=== PATIENT | male | born 1950 | race Caucasian/White ===

== ENCOUNTER 2019-06-24 08:07 | Day surgery (SDC) | payer OTHER, SELFPAY ==
[2019-06-21 11:58] VITALS: BMI 33.5
[2019-06-24] MEDS: sodium chloride 0.9% 1,000 ML 30 ML (08:54)
--- NOTE | 2019-06-24 08:54 | ANES.PREANES ---
Pre-Anesthetic Assessment Pre-Anesthetic Assessment: Height/Weight: Height 1.91 m Weight 121.563 kg Preop Diagnosis: screening Proposed Procedure: Operation Date: 06/24/19 09:30 Proposed Procedures p Colonoscopy(Not Applicable) - Pascual Bernabe MD Was Beta Sneha taken within 24 hours: Yes Last intake: Intake Last Liquid Date 06/23/19 Last Liquid Time 21:00 Last Solid Date 06/22/19 Last Solid Time 18:00 Last Intake: 23:00 Social: Social History: No tobacco (stop 12 yrs ago) Exam: Pre-Anes Outpt Exam: alert, oriented x 3, clear to auscultation bilaterally and regular rate & rhythm Airway: Submandibular: WNL Cervical ROM: WNL Dentition: False Pulmonary: Pulmonary: None reported CV/HEM: CV/HEM: CAD (ptca 2 yrs ago total 5 stents. no cp in 2 yrs), HTN and SD : : None reported Hepatic: Hepatic: None reported GI: GI: None reported Metabolic: Metabolic: DM (avg 150-200) Musc/skel: Musc/skel: OA/DJD Neuropsych: Neuropsych: None reported Anesthetic Plan: ASA status: III Anesthesia: Anesthesia Evaluation and MAC Risk of > 500 ml blood loss (7ml/kg in children): No PFSH Anesthesia PFSH: Medical History (Updated 06/20/19 @ 13:37 by Pascual Bernabe MD) H/O adenomatous polyp of colon (Acute) Social History Smoking and tobacco status: former smoker Alcohol intake: former Data Anesthesia Cardiac Studies: No Data to Display
[2019-06-24 08:56] VITALS: BP 159/84; PULSE 54; RESP 16; TEMP 36.3; O2SAT 97
--- NOTE | 2019-06-24 09:06 | PM.HPUD ---
H&P update H&P Update: DATE OF SURGERY/PROCEDURE: 06/24/19 DATE H&P PERFORMED: 06/20/19 H&P UPDATE INFORMATION: H&P completed within last 30 days and No changes to prior documentation PLANNED PROCEDURE: Operation Date: 06/24/19 09:30 Proposed Procedures p Colonoscopy(Not Applicable) - Pascual Bernabe MD Full H&P Perinent History: Medical/Surgical History: Medical History (Updated 06/20/19 @ 13:37 by Pascual Bernabe MD) H/O adenomatous polyp of colon (Acute) Social History: Social History Smoking and tobacco status: former smoker Alcohol intake: former
[2019-06-24 10:00] VITALS: BP 109/66; PULSE 60; RESP 18; TEMP 36.5; O2SAT 98
[2019-06-24 10:10] VITALS: BP 122/64; PULSE 51; RESP 18; O2SAT 96
[2019-06-24 10:23] VITALS: BP 131/76; PULSE 52; RESP 18; O2SAT 99
== END 2019-06-24 10:30 | disposition home or self-care (01) ==
PROVIDERS: Family Provider Nurse Practitioner; PCP Nurse Practitioner; Visit Provider Internal Medicine
PROC: 0DJD8ZZ Inspection of Lower Intestinal Tract, Via Natural or Artificial Opening Endoscopic (ICD-10-PCS; CPT 45378; principal; 2019-06-24 09:30)
DX: D12.0 Benign neoplasm of cecum (principal); D12.2 Benign neoplasm of ascending colon; Z86.010 Personal history of colon polyps; Z79.82 Long term (current) use of aspirin; Z87.891 Personal history of nicotine dependence; K57.30 Diverticulosis of large intestine without perforation or abscess without bleeding; I10 Essential (primary) hypertension; I25.10 Atherosclerotic heart disease of native coronary artery without angina pectoris; E11.9 Type 2 diabetes mellitus without complications; M19.90 Unspecified osteoarthritis, unspecified site; Z79.4 Long term (current) use of insulin
CPT/HCPCS: 12345; 45380; 45385; 88305; 96365; J7030

== ENCOUNTER → 2019-08-05 16:00 | Outpatient (BNVA) | payer OTHER, MEDICARE, SELFPAY | PROVIDERS: Family Provider Nurse Practitioner; PCP Nurse Practitioner; Visit Provider Nurse Practitioner Family | DX: I25.10 Atherosclerotic heart disease of native coronary artery without angina pectoris (principal) | CPT/HCPCS: 80048; 83880 ==

== ENCOUNTER 2019-10-29 07:32 | Outpatient (CLI) | payer OTHER, SELFPAY ==
[2019-10-29 07:53] VITALS: BMI 32.1
--- NOTE | 2019-10-29 07:55 | NMCV_ITS ---
NM melia perf SPECT r/s* [id number] Galen Macdonald Age: 69 Gender: M : 1950 Exam Date: 10/29/2019 08:30 Ordering Phys: Cyndee Willett Technologist: AKOSUA Nunez Exam Location: [facility] Indications: CAD STRESS TEST Please see separate stress test report [facility] for full findings IMAGE PROTOCOL Rest/Stress 1 Lexiscan Day Radiopharmaceutical Dose (mCi) Administration Site Administered by Rest: Tc-99m 10.4 IV AKOSUA Gil Sestamibi Stress:Tc-99m 32.4 IV AKOSUA Gil Sestamibi Rest: 29-Oct-2019 60 Discovery 630 Stress: 29-Oct-2019 30 Discovery 630 0.4mg Lexiscan. Images obtained in supine and prone position. SPECT RESULTS Technical Quality: Excellent Raw Data Analysis: Normal Image Corrections: No attenuation or motion correction applied Summed Stress Score: 14 Summed Rest Score: 9 Summed Difference Score: 5 PERFUSION FINDINGS Medium-sized area of fixed perfusion defect noted in basal to distal inferior inferoseptal and inferolateral wall suggestive of old myocardial infarction versus scarring and RCA or circumflex territory. FUNCTIONAL RESULTS (calculated via Gated SPECT) Stress Image LV EF (%): 32 Stress EDV (mL):238 TID: 1.06 Stress ESV (mL):161 Rest Image LV EF (%): 32 FUNCTIONAL FINDINGS: There is inferior wall akinesis, there is global hypokinesis IMPRESSIONS Medium-sized area of old myocardial infarction versus scarring noted in basal to distal inferior, inferoseptal and inferolateral wall without dot-infarct ischemia. EKG segment will be documented separately. Simone Amador MD (Electronically Signed) Final Date: 29 October 2019 11:59 S
--- NOTE | 2019-10-29 07:55 | ECG_ITS ---
NAME OF STUDY: LEXISCAN SESTAMIBI STRESS TEST INDICATION: Coronary Artery Disease PROCEDURE: At the baseline, the EKG revealed sinus bradycardia with a right bundle branch block pattern. Nonspecific T wave changes. The baseline blood pressure was 155/83 mm Hg with a heart rate of 80 beats/min. Lexiscan was infused over a period of 20 seconds. A total of 0.4 milligrams of Lexiscan was infused. The stress phase was continued for a total of 5 minutes. Heart rate at the end of the stress phase was 61 with a blood pressure 145/78. The EKG at the peak infusion revealed no significant changes. Sestamibi was injected 20 seconds after the Lexiscan infusion. Blood pressure at the end of the recovery phase was 144/70 with a heart rate of 59 per minute. CONCLUSION: 1. No significant EKG changes with the LexiScan infusion 2. No LexiScan induced chest pain or cardiac arrhythmia 3. Normal blood pressure and heart rate response 4. Sestamibi/sestamibi perfusion scan pending; see separate report. Electronically Signed On 10-30-2019 9:25:29 CDT by Niharika Garcia M.D. [email or web address]
[2019-10-29] MEDS: regadenoson 0.4 Mg/5 ml Syringe IVP (09:20)
[2019-10-29 09:27] VITALS: BP 145/75; PULSE 66
== END 2019-10-29 07:33 | disposition home or self-care (01) ==
LOC: RAD 07:40 → CDL 07:46
PROVIDERS: Family Provider Nurse Practitioner; PCP Nurse Practitioner; Visit Provider Nurse Practitioner Family
DX: I25.10 Atherosclerotic heart disease of native coronary artery without angina pectoris (principal)
CPT/HCPCS: 78452; 93017; A9500; J2785

== ENCOUNTER 2020-03-10 11:13 | Emergency (ER) | payer OTHER, MEDICARE, SELFPAY ==
[2020-03-10 11:18] VITALS: BP 184/89; PULSE 63; RESP 16; O2SAT 99; BMI 33.2
--- NOTE | 2020-03-10 11:36 | ED_ITS ---
HPI - Skin/Abscess/Foreign Bdy General: Chief complaint: Skin/Abscess/Foreign Body Stated complaint: Spider Bite Time Seen by Provider: 03/10/20 11:23 History of Present Illness: HPI narrative: Only 1-year-old male presents emergency room with complaint of a spider bite on his pannus. He has 2 areas that are bruised one area that is tender and swollen. He was seen at the [place] [facility] and he was directed here. He is an insulin-dependent diabetics and injec ts insulin in his abdominal wall. These have been present for over a week now. He was on an antibiotic for it did not resolve. MD complaint: abscess/boil Onset (ago): week(s) Severity: mild Quality: aching Pain Consistency: constant Relieving factors: none Exacerbating factors: none Context: none Associated symptoms: Deny arthralgias, chills, cough, fever(s), itching, myalgias, nausea, rigidity, short of breath or vomiting Treatments prior to arrival: antibiotic Review of Systems Const: Denies: fever(s) or chills ENMT: Denies: throat pain, ear or mastoid pain, nasal discharge or nasal congestion Card: Denies: chest pain, edema, dyspnea on exertion or orthopnea Resp: Denies: dyspnea, productive cough or non-productive cough GI: Denies: nausea or vomiting : Denies: flank pain, dysuria, urinary frequency or urinary urgency PFSH ED PFSH: Medical History (Updated 03/10/20 @ 11:41 by Dane Hernandez DO) Benign prostatic hyperplasia with lower urinary tract symptoms CAD (coronary artery disease) Chronic pain Diabetes mellitus GERD (gastroesophageal reflux disease) H/O adenomatous polyp of colon Hyperlipidemia Hypertension Ischemic cardiomyopathy Myocardial infarction Obesity Status post replacement of knee joint Surgical History (Updated 11/13/19 @ 16:20 by Hai Barnett MD) Post PTCA Family History Mother Cancer Denies family history of Diabetes CAD (coronary artery disease) Clotting disorder Dementia Hyperlipidemia Psychiatric illness Chronic kidney disease (CKD) Suicide Anesthesia complication Bleeding disorder Family history of premature coronary artery disease Lung disease Hypertension Stroke Social History Smoking and tobacco status: former smoker Alcohol intake: former Physical Exam Const: COMMON NORMALS: no acute distress GENERAL APPEARANCE: cooperative and comfortable ORIENTATION/CONSCIOUSNESS: Yes awake, Yes oriented to person, Yes oriented to place and Yes oriented to time Neck/C-Spine: COMMON NORMALS: no JVD Resp: COMMON NORMALS: normal respiratory effort, No retractions, No use of accessory muscles and clear to auscultation bilaterally AUSCULTATION: clear to auscultation bilaterally Cardio: COMMON NORMALS: no JVD, regular rate, regular rhythm and No murmurs present (Cardio) RATE: regular rate RHYTHM: regular rhythm Neuro: SENSORIUM/ORIENTATION: Yes oriented to person, Yes oriented to place and Yes oriented to time Skin: NARRATIVE SKIN EXAM: No areas of bruising in various stages of healing on the abdominal wall at the apex of the pannus there is a fluctuant small area consistent with a subcutaneous abscess this is confirmed by bedside ultrasound. The other area of bruising more to the midline does not show any subcutaneous abscess. Procedures Abscess I/D Site: abdomen Side (if applicable): left Local Anesthetic: lidocaine 1% Amount of anesthesia used (mL): 2 Amount of fluid expressed (mL): 2 Irrigation: Yes Packing used?: none Course Vital Signs: Vital signs: Vital Signs Pulse Rate 63 03/10/20 11:18 Respiratory Rate 16 03/10/20 11:18 Blood Pressure 184/89 03/10/20 11:18 Pulse Oximetry 99 03/10/20 11:18 Discharge Plan Discharge Patient Disposition: Home Clinical Impression: Abscess of skin or subcutaneous tissue, Diabetes mellitus Condition: Stable Prescriptions: New Bactrim DS 800-160 mg tablet 1 tab PO BID 5 Days Qty: 10 RF: 0 No Action nitroglycerin 0.4 mg tablet, sublingual 0.4 mg SUBLINGUAL Q5M PRN (Reason: chest pain) Qty: 20 RF: 3 glipizide 10 mg tablet 10 mg PO BID RF: 0 Lantus Solostar U-100 Insulin 100 unit/mL (3 mL) insulin pen 100 unit SUBCUT DAILY RF: 0 lisinopril 40 mg tablet 40 mg PO DAILY RF: 0 tamsulosin 0.4 mg capsule 0.4 mg PO DAILY RF: 0 aspirin 325 mg tablet 325 mg PO DAILY RF: 0 acetaminophen 500 mg tablet 500 mg PO Q4H PRN (Reason: PAIN) RF: 0 metoprolol tartrate 50 mg tablet 25 mg PO BID RF: 0 furosemide 40 mg tablet 40 mg PO DAILY Qty: 30 RF: 3 potassium chloride 20 mEq tablet extended release 20 meq PO DAILY Qty: 30 RF: 3 Discharge Orders: Discharge Order (Routine); Ordered 03/10/20 Ordered By: Dane Hernandez Referrals: Ines Dooley FNP [Primary Care Provider] - Activity Restrictions/Additional Instructions: Change wound dressing daily. Apply topical [id number] antibiotic ointment follow-up with your primary care doctor return if worsens or changes. 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
[2020-03-10 11:48] VITALS: BP 159/81; PULSE 60; RESP 17; O2SAT 97
== END 2020-03-10 11:48 | disposition home or self-care (01) ==
PROVIDERS: Emergency Provider Family Medicine; PCP Nurse Practitioner
DX: L02.211 Cutaneous abscess of abdominal wall (principal); E11.9 Type 2 diabetes mellitus without complications; Z79.4 Long term (current) use of insulin; Z79.82 Long term (current) use of aspirin; I25.10 Atherosclerotic heart disease of native coronary artery without angina pectoris; E78.5 Hyperlipidemia, unspecified; I10 Essential (primary) hypertension; I25.2 Old myocardial infarction; Z87.891 Personal history of nicotine dependence
CPT/HCPCS: 10060; 12345; 87070; 99282

== ENCOUNTER 2020-07-07 09:49 | Outpatient (CLI) | payer OTHER, SELFPAY ==
--- NOTE | 2020-07-07 09:59 | US_ITS ---
WS: [id number] ULTRASOUND RENAL TECHNIQUE: Ultrasound examination of both kidneys. CLINICAL INFORMATION: ABNORMAL UA COMPARISON: None. FINDINGS: RIGHT: Right kidney is normal in size and appearance. Echogenicity: Normal. Cortical thickness: 1.2 cm; Normal. Hydronephrosis: None. Perinephric fluid: None. Right kidney measures: 12.5 cm x 5.4 cm x 4.9 cm. LEFT: Left kidney is normal in size and appearance. Echogenicity: Normal. Cortical thickness: 1.8 cm; Normal. Hydronephrosis: None. Perinephric fluid: None. Left kidney measures: 12.2 cm x 5.6 cm x 5.5 cm. Normal visualized aorta. Prostate measures 4.4 x 3.9 x 4.4 cm. Mild diffuse bladder wall thickening c an be seen with bladder outlet obstruction. US/US renal BI* [id number] IMPRESSION: 1. Normal renal ultrasound 2. Enlarged prostate. Correlation PSA.
== END 2020-07-07 09:50 | disposition home or self-care (01) ==
PROVIDERS: PCP Nurse Practitioner; Visit Provider Nurse Practitioner
DX: N40.0 Benign prostatic hyperplasia without lower urinary tract symptoms (principal); Z01.89 Encounter for other specified special examinations
CPT/HCPCS: 76770

== ENCOUNTER 2020-08-04 09:59 | Outpatient (CLI) | payer OTHER, SELFPAY ==
--- NOTE | 2020-08-04 14:32 | ONC CON_ITS ---
Dr. Wetzel New Patient Note Patient: Galen Macdonald Unit #: [id number]: 1950 Dicatated By: Serafin Wetzel M.D.Date of Visit: Aug 04, 2020 Onc MED New Patient/Consult Referring Physician: Ines Dooley A.P.N. Chief Complaint: Thrombocytopenia. History of Present Illness: This is a 70-year-old man with mild thrombocytopenia. He has multiple medical illnesses including hypertension, hyperlipidemia, type 2 diabetes, and coronary artery disease with ischemic cardiomyopathy. [facility] I am asked to see him in regard to mild thrombocytopenia. His recent laboratory studies, from 06/08/2020, included CBC showing hemoglobin 15.5 g with hematocrit 45%. The red cell indices were normal. The white blood cell count was 6400 and the platelet count was 84,000. His comprehensive metabolic profile showed stable renal function with BUN 8 and creatinine 1.11 mg/dL. The total bilirubin was mildly elevated 1.4 mg/dL. The liver enzymes were normal. Albumin was normal 3.9 g/dL. His TSH level was normal at 0.920 ???IU/mL. In reviewing his records in [facility], he has had several prior blood counts. Going back to September 2012 the platelet count was normal at 160,000, but in May 2014 it had become mildly decreased at 106,000 and in June 2018 it had further decreased to 82,000. In May 2014 he was mildly anemic, but his other blood counts have otherwise been normal. His previous bilirubin levels were borderline high to mildly elevated. The liver enzymes were consistently normal. A renal CT in June 2018 showed atherosclerotic cardiovascular and peripheral vascular changes and findings which were suspicious for cirrhosis of the liver with evidence of portal hypertension. A 5.5 mm right proximal ureteral renal calculus with mild obstructive changes was noted and there was mild prostate gland enlargement. Also noted was a right paramedian supraumbilical abdominal wall hernia. He says he mostly feels good, but he does not have much energy and he has limited activity. He does just a little bit of light work. His ECOG score is 2. He has good appetite. He has no fever or night sweats. He has had occasional nosebleeds, consistently from the right side. He has easy bruising, but that has been going on for years. He has no other bleeding manifestations. He does not complain of shortness of breath, cough, or chest pain. He occasionally has nausea. He has no other GI complaints. He does report that his urination is a little weak. He is seeing Dr. Decker. He has joint pain, mostly in his left hand but also sometimes in the left shoulder and sometimes in the right hand. He has some chronic back pain. His hands tend to cramp up with cold exposure. He has occasional nocturnal leg cramps. He does not describe any typical claudication type pain. He has neuropathy, and he complains that his feet are numb all the time. Past Medical History: His medical history consists of benign prostatic hypertrophy, coronary artery disease, degenerative arthritis, gastroesophageal reflux disease, history of colonic polyps, hyperlipidemia, hypertension, ischemic cardiomyopathy, nephrolithiasis, and type II diabetes. Past Surgical History: His surgical/procedural history includes abdominal hernia repair x 2, appendectomy, arthroscopic right shoulder surgery, coronary angioplasty/stent placement on 3 occasions, total knee arthroplasty bilaterally, and colonoscopy in 2019. Medications: Antifungal Clotrimazole (1 %) Cream Topical b.i.d., Atorvastatin Calcium (80 mg) Tablet Oral daily, Folic Acid-Cholecalciferol (1-2000 mg - Units) Tablet Oral daily, glipiZIDE (10 mg) Tablet Oral b.i.d., Insulin Glargine (95 Units/mL) Subcutaneous daily, Lisinopril Tablet Oral, Tamsulosin HCl (0.4 mg) Capsule Oral daily Allergies: Penicillins Social History: Mr. Macdonald is and he is retired. He has a history of smoking 2 packs of cigarettes daily for 20 years. He quit smoking in 2006. He has had just very occasional alcohol use. Family History: His mother of stomach cancer at age 70. Father 3 months later at age 75, apparently due to depression. One brother of heart attack and another of alcohol-related liver disease. Two sisters are in good health. Review Of Symptoms: Constitutional - He does not have much energy and he has very limited activity. He does just a little bit of light work. He has good appetite. He has no fever or night sweats. ECOG score is 2, Eyes - No change in vision, ENMT - He has hearing loss and tinnitus. No sinus congestion or drainage, but he does have occasional epistaxis, always on the right side. No mouth sores. No sore throat or difficulty swallowing, Hematologic/Lymphatic - He has easy bruising, but that has been going on for years, Respiratory - No shortness of breath. No cough. No pleuritic pain or hemoptysis, Cardiovascular - No angina pain. No palpitations. He does have swelling in his legs and feet, Gastrointestinal - He occasionally has nausea. No heartburn or acid reflux. No diarrhea or constipation. No blood in the stool or black stools, Genitourinary (M) - His urine stream is a little weak. He is seeing Dr. Decker, Musculoskeletal - He has joint pain, mostly in his left hand, but also in his left shoulder and sometimes in his right hand. He has some chronic back pain, Integumentary - He is using a topical antifungal cream, Neurologic - No headache. He has some lightheadedness. He has neuropathy with numbness in both feet. No other focal neurologic symptoms, Psychiatric - No anxiety or depression. He has difficulty sleeping at night. Vital Signs: Performed on Aug 04, 2020 11:06: 10, 0, 0.00, 0.00 sq.m, 98 %, 54 /min (LOW), 20 /min, 169/80 mm(hg) (HIGH), 98.1 F (LOW), and 264.6 lbs (HIGH). Physical Examination: Constitutional - He appears somewhat weak generally, and he has limited mobility, Eyes - Sclerae nonicteric. Conjunctivae clear, ENMT - No lesions noted in the oral cavity, Neck - No mass or thyromegaly, Hematologic/Lymphatic - No cervical, clavicular, or axillary adenopathy, Respiratory - Lungs sound clear, Cardiovascular - Heart rhythm is regular. There is no murmur, gallop, or rub noted, Abdomen - Mildly distended. Liver and spleen do not appear enlarged. There is no abdominal mass or ascites noted and there is no inguinal adenopathy, Back/Spine - No spine or CVA tenderness noted, Extremities - Slight edema. There is a palpable dorsalis pedis pulse on the right. I am not able to palpable a pedal pulse on the left. There are a few scattered purpuric lesions on the arms. There are no petechiae or ecchymoses noted, Integumentary - No rashes. No suspicious skin lesions noted, Neurologic - He has poor mobility and he has postural instability. He does not appear to have any focal neurologic deficit. Problem List: 1. Mild thrombocytopenia. Etiology is uncertain. I suspect this may be due to underlying liver cirrhosis/hypersplenism. 2. Hypertension. 3. Hyperlipidemia. 4. Type 2 diabetes with neuropathy. 5. Coronary artery disease with ischemic cardiomyopathy. 6. GERD. 7. Degenerative arthritis/degenerative disease of the spine with chronic pain. 8. Benign prostatic hypertrophy. 9. History of nephrolithiasis. 10. History of colonic polyps. Problems Addressed with this Encounter and Plan: Patient with mild thrombocytopenia. Etiology is uncertain, but it has developed over the past 2 to 3 years, and at this point it appears to be stable. Based on the findings of his CT scan in 2019, I suspect this is most likely due to underlying liver cirrhosis/hypersplenism. Platelet clumping also would need to be excluded. Medication induced thrombocytopenia is possible, but unlikely. Other possible causes include myelodysplasia or a low-grade autoimmune thrombocytopenia, but those also appear to be less likely. The laboratory findings and clinical implications were reviewed with the patient and his . At this point he will be scheduled for additional laboratory studies to include CBC, comprehensive metabolic profile, sed rate, LDH level, and a B12 level. I also will include hepatitis profile and I will review the blood smear. In addition, I will schedule him for repeat CT abdomen/pelvis. He will have further evaluation as indicated. Signed By: Serafin Wetzel M.D. <<Signature on File>>
== END 2020-08-04 10:00 | disposition home or self-care (01) ==
PROVIDERS: PCP Nurse Practitioner; Visit Provider Internal Medicine Medical Oncology
DX: D69.6 Thrombocytopenia, unspecified (principal); K74.60 Unspecified cirrhosis of liver; D73.1 Hypersplenism; Z87.891 Personal history of nicotine dependence; I10 Essential (primary) hypertension; E78.5 Hyperlipidemia, unspecified; E11.40 Type 2 diabetes mellitus with diabetic neuropathy, unspecified; I25.10 Atherosclerotic heart disease of native coronary artery without angina pectoris; I25.5 Ischemic cardiomyopathy
CPT/HCPCS: 99204

== ENCOUNTER 2020-08-17 11:01 | Outpatient (CLI) | payer OTHER, SELFPAY ==
--- NOTE | 2020-08-17 11:15 | CT_ITS ---
WS: [id number] Exam: CT abdomen pelvis w con* [id number] Date/Time of Exam: 08/17/2020 11:15 AM Reason For Exam: THROMBOCYTOPENIA DLP: 1023.[address] scans at [facility] use at least one of these dose optimization techniques: automat ed exposure control; mA and/or kV adjustment per patient size (includes targeted exams where dose is matched to clinical indication); or iterative reconstruction. Compared to the prior study 07/16/2018, noncontrast exam. Stable appearing nodular densities and parenchymal scarring in the left lower lobe with mild pleural thickening. Coronary artery calcifications. The liver is mildly lobulated in contour which might be s een with hepatic cirrhosis. There are stones in the gallbladder. No sign of acute cholecystitis. Sple nomegaly. The spleen measures 19 cm at greatest dimension. Small nonobstructing stones in both kidney s. 2.3 cm right renal cyst. No renal obstruction identified. Normal adrenal glands. Splenic varices. The pancreas is unremarkable. The abdominal aorta is normal in caliber. The portal vein and IVC are p atent. Mesenteric varices are noted. Small bowel loops are not dilated. There are probably varices at the gastroesophageal junction. The stomach is otherwise unremarkable. Sigmoid diverticulosis. No sig n of acute diverticulitis. No sign of acute appendix. No lymphadenopathy or free air. Right paramedia n ventral hernia containing fat. Signs of previous abdominal hernia repair with mesh. Mild prostatome liv. Intact urinary bladder. No mass or adenopathy in the pelvis. Fat filled left inguinal hernia. F atty replaced bilateral inguinal lymph nodes which have benign appearance. No destructive bone lesion s are seen. CT/CT abdomen pelvis w con* [id number] IMPRESSION: 1. Findings suggest hepatic cirrhosis and splenomegaly with features of portal hypertension. 2. Bilateral small nonobstructing renal calculi. Small right renal cyst. 3. Sigmoid diverticulosis. No sign of acute diverticulitis. 4. Splenic and mesenteric varices. There may also be varices at the GE junction . 5. Cholelithiasis. No sign of acute cholecystitis. 6. No mass, lymphadenopathy or acute process. 7. Ventral hernia, left inguinal hernia and signs of previous ventral hernia re pair with mesh. Overall, little change since prior study.
[2020-08-17] MEDS: iohexol 300 mg/mL 100 mL Btl IV (13:07)
[2020-08-17] MEDS: iohexol 300 mg/mL 50 mL Btl PO (13:08)
== END 2020-08-17 11:02 | disposition home or self-care (01) ==
LOC: RADWPI 11:06
PROVIDERS: PCP Nurse Practitioner; Visit Provider Internal Medicine Medical Oncology
DX: D69.6 Thrombocytopenia, unspecified (principal); K43.9 Ventral hernia without obstruction or gangrene; K80.20 Calculus of gallbladder without cholecystitis without obstruction; I86.8 Varicose veins of other specified sites; K57.30 Diverticulosis of large intestine without perforation or abscess without bleeding; N20.0 Calculus of kidney
CPT/HCPCS: 74177; Q9967

== ENCOUNTER 2020-11-04 10:28 | Inpatient (IN) | payer OTHER, MEDICARE, SELFPAY ==
[2020-11-04] VITALS (12 sets, daily range): BP systolic 154–182; BP diastolic 70–112; PULSE 49–67; RESP 12–19; TEMP 36.7–37; O2SAT 93–98; BMI 32.5
--- NOTE | 2020-11-04 10:39 | ECG_ITS ---
[facility] Test Date: 2020-11-04 Pat Name: Galen Macdonald Department: Room: Gender: Male Parboiler: : 1950 Requested By: Dane Estes Order Number: [id number] Nikia MD: Julia Gibson M.D. Measurements Intervals [place] Rate: 54 P: 40 TN: 240 QRS: -44 QRSD: 168 T: -38 QT: 487 QTc: 465 Interpretive Statements SINUS BRADYCARDIA WITH FIRST DEGREE AV BLOCK MARKED LEFT AXIS DEVIATION [QRS AXIS < -30] RIGHT BUNDLE BRANCH BLOCK [120+ ms QRS DURATION, UPRIGHT V1, 40+ ms S IN I/aVL/V4/V5/V6] LEFT VENTRICULAR HYPERTROPHY AND ST-T CHANGE [VOLTAGE CRITERIA PLUS ST/T ABNORMALITY] Compared to ECG 07/23/2018 12:46:55 Left-axis deviation now present Left ventricular hypertrophy now present ST (T wave) deviation now present Myocardial infarct finding no longer present Electronically Signed On 11-04-2020 16:27:23 CDT by Julia Gibson M.D. [email or web address]
--- NOTE | 2020-11-04 10:39 | CT_ITS ---
WS: [id number] CT HEAD NONCONTRAST HISTORY: Symptoms of Acute Stroke, RIGHT facial droop. TECHNIQUE: Contiguous axial imaging performed through the brain in 2.5 mm imaging. Bone and soft tiss ue windows. Sagittal and coronal reformats reviewed. All CT scans at [facility] use at le ast one of these dose optimization techniques: automated exposure control; mA and/or kV adjustment pe r patient size (includes targeted exams where dose is matched to clinical indication); or iterative r econstruction. DLP: 1079.88 mGy.cm COMPARISON: 05/07/2019 No acute intracranial hemorrhage, midline shift or mass effect. Mild atrophy and mild chronic microvascular ischemic disease. Small lacunar infarct in the RIGHT daniel na radiata is similar to the prior study. No new area of sulcal effacement. Ventricles: Normal size with no hydrocephalus. Paranasal sinuses: As visualized are clear. Mastoid air cells: Well pneumatized. Calvarium and scalp: Skull is intact with no soft tissue edema or swelling. Moderate atherosclerotic plaque within the intracranial carotid arteries. CT/CT head wo con* [id number] IMPRESSION: 1. No acute intracranial hemorrhage or edema. 2. Mild atrophy and prior lacunar infarct RIGHT garcia radiata. Notified Dane Hernandez DO at 11/04/2020 10:57 AM.
--- NOTE | 2020-11-04 10:39 | XR_ITS ---
WS: [id number] Portable AP upright chest, 11/04/2020 Clinical Data: dyspnea Comparison: Portable chest, 10/24/2012. Findings: No nodules, masses or effusions are seen. The heart is enlarged. The pulmonary vascularity is not increased. No pneumonia or pneumothorax is seen. The aortic arch and descending aorta show tor tuosity. XR/XR chest 1V portable [id number] Impression: Cardiomegaly and atherosclerosis.
--- NOTE | 2020-11-04 10:40 | ECG_ITS ---
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 Measurements Intervals [place] Rate: 52 P: 34 MI: 234 QRS: -41 QRSD: 164 T: -34 QT: 479 QTc: 446 Interpretive Statements SINUS BRADYCARDIA WITH FIRST DEGREE AV BLOCK MARKED LEFT AXIS DEVIATION [QRS AXIS < -30] RIGHT BUNDLE BRANCH BLOCK [120+ ms QRS DURATION, UPRIGHT V1, 40+ ms S IN I/aVL/V4/V5/V6] POSSIBLE LEFT VENTRICULAR HYPERTROPHY [VOLTAGE CRITERIA PLUS LAE OR QRS WIDENING] Compared to ECG 11/04/2020 13:20:38 First degree AV block now present Left-axis deviation now present Left anterior fascicular block no longer present ST (T wave) deviation no longer present Electronically Signed On 11-04-2020 16:26:13 CDT by Julia Gibson M.D. [id number]
--- NOTE | 2020-11-04 10:45 | ED_ITS ---
HPI - Neuro Symptoms/Deficit General: Chief Complaint: Neuro Symptoms/Deficit Stated Complaint: stroke like symptoms Time Seen by Provider: 11/04/20 10:39 History of Present Illness: HPI Narrative: 70-year-old male comes in with family member this morning he woke up with a right-sided facial droop and some slurring of his words. His balance is also a little bit been off he has had some weakness lightheaded right leg as well. He was last known well around 8:00 last night when he arrived here he was drowsy he could not sign his name family member said he had a definite facial droop and slurring of speech. Onset (ago): unknown Last Observed Normal: 22:00 Timing confirmed by: family member Location: speech, right face, dysarthria, right arm, right leg and ataxia History of same: No Severity: mild Quality: weak Relieving factors: none Exacerbating factors: none Associated symptoms: Reports malaise; Deny chest pain, cough, diaphoresis, fevers/chills, headache(s), anorexia, nausea, seizures, short of breath, syncope, tingling, vertigo, vomiting or weakness Treatments Prior to Arrival: none Review of Systems Const: Reports: malaise; Denies: diaphoresis ENMT: Denies: throat pain, ear or mastoid pain, nasal discharge or nasal congestion Card: Denies: chest pain or syncope Resp: Denies: dyspnea, productive cough or non-productive cough GI: Denies: nausea or vomiting : Denies: flank pain, dysuria, urinary frequency or urinary urgency Skin/Breast: Denies: rash or pruritus Neuro: Denies: headache(s) or vertigo [facility] PFSH: Medical History Benign prostatic hyperplasia with lower urinary tract symptoms CAD (coronary artery disease) Chronic pain Diabetes mellitus GERD (gastroesophageal reflux disease) H/O adenomatous polyp of colon Hyperlipidemia Hypertension Ischemic cardiomyopathy Myocardial infarction Obesity Status post replacement of knee joint Surgical History Post PTCA Family History Mother Cancer Denies family history of Diabetes CAD (coronary artery disease) Clotting disorder Dementia Hyperlipidemia Psychiatric illness Chronic kidney disease (CKD) Suicide Anesthesia complication Bleeding disorder Family history of premature coronary artery disease Lung disease Hypertension Stroke Social History Smoking and tobacco status: former smoker Alcohol intake: former NIH stroke score NIHSS: Level Of Consciousness - 1a: 1 Level Of Consciousness Questions - 1b: One Correct Level Of Consciousness Commands - 1c: Both Correct Best Gaze - 2: Normal Visual Sanford - 3: No Visual Loss Facial Palsy - 4: Minor Paralysis Motor Arm Right - 5: No Drift Motor Arm Left - 5: No Drift Motor Leg Right - 6: No Drift Motor Leg Left - 6: No Drift Limb Ataxia - 7: Present In One Limb Sensory - 8: Normal Best Language - 9: No Aphasia Dysarthia - 10: Mild/Moderate Dysarthia Extinction And Inattention - 11: 0 Score: Total Score: 5 Physical Exam Const: COMMON NORMALS: no acute distress GENERAL APPEARANCE: cooperative and comfortable ORIENTATION/CONSCIOUSNESS: Yes awake, Yes oriented to person, Yes oriented to place and Yes oriented to time HENMT: COMMON NORMALS: normocephalic, atraumatic, hearing grossly normal bilaterally and external ears normal HEAD & SCALP: normocephalic and atraumatic EXTERNAL EAR: Yes external ears normal Neck/C-Spine: COMMON NORMALS: no JVD Resp: COMMON NORMALS: normal respiratory effort, No retractions, No use of accessory muscles and clear to auscultation bilaterally AUSCULTATION: clear to auscultation bilaterally Cardio: COMMON NORMALS: no JVD, regular rate, regular rhythm and No murmurs present (Cardio) RATE: regular rate RHYTHM: regular rhythm GI: COMMON NORMALS: Soft to palpation and No hepatosplenomegaly present AUSCULTATION: Yes normoactive bowel sounds PALPATION: Yes Soft to palpation, No Tenderness to palpation present (GI), No Guarding due to palpation present (GI) and Yes No hepatosplenomegaly present Extremity: COMMON NORMALS: normal to inspection, capillary refill normal, no clubbing, cyanosis or edema, no calf tenderness and no pedal edema Neuro: SENSORIUM/ORIENTATION: Yes oriented to person, Yes oriented to place and Yes oriented to time Skin: COMMON NORMALS: no rashes or lesions noted GENERAL SKIN EXAM: no rashes or lesions noted Course Vital Signs: Vital signs: Vital Signs Temperature 98.0 F 11/04/20 13:41 Pulse Rate 52 L 11/04/20 13:41 Respiratory Rate 16 11/04/20 13:41 Blood Pressure 163/73 11/04/20 13:41 Pulse Oximetry 96 11/04/20 13:41 MDM - Neuro Symptoms/Deficit MDM Narrative: Medical decision making narrative: Patient has improved slightly his facial droop is resolved he still has the weakness in the leg and the slurring of his speech. At this point relying permissive hypertension is 180s over 90s at home that he needs to be lowered below the is a known history of thrombocytopenia and artery disease and diabetes. His blood sugars have been good interestingly he is on a sulfonylurea and insulin. Lab Data: Labs: Lab Results 11/04/20 11/04/20 11/04/20 Range/Units 09:38 09:38 10:38 WBC 5.8 (4.0-10.0) 10^3/ uL RBC 4.75 (4.1-5.3) 10^6/u L Hgb 14.8 (11.7-16.6) g/dL Hct 42.6 (42.0-52.0) % MCV 89.7 (80-94) fL MCH 31.2 (28.0-34.0) pg MCHC 34.7 (30.0-36.0) g/dL RDW 13.5 (12.1-15.1) % Plt Count 83 L (130-400) 10^3/c mm MPV 10.5 H (7.4-10.4) fL Neut % (Auto) 65.0 % Lymph % (Auto) 27.0 % [place] % (Auto) 5.7 % Eos % (Auto) 1.6 % Baso % (Auto) 0.2 % Neut # (Auto) 3.74 (1.8-7.7) 10^3/u L Lymph # (Auto) 1.6 (0.8-4.8) 10^3/u L [place] # (Auto) 0.3 (0.2-0.9) 10^3/u L Eos # (Auto) 0.1 (0.0-0.8) 10^3/u L Baso # (Auto) 0.0 (0.0-0.1) 10^3/u L Nucleated RBC % (a uto) 0 % Nucleated RBCs # 0.0 /100WBC PT (12.1-14.9) SECO NDS INR (0.8-1.2) APTT (23.9-36.7) SECO NDS Sodium 137 (136-145) mmol/L Potassium 3.9 (3.5-5.1) mmol/L Chloride 102 (98-107) mmol/L Carbon Dioxide 24 (22-29) mmol/L Anion Gap 14.9 (5-19) BUN 8 (8-23) mg/dL Creatinine 0.7 (0.7-1.2) mg/dL GFR Calculation Not Reportable Glucose 174 H (65-115) mg/dL Calculated Osmolal ity 287 (285-295) mOsm/k g Calcium 8.3 L (8.5-10.5) mg/dL Total Bilirubin 2.1 H (0.15-1.2) mg/dL AST 26 (0-40) U/L ALT 11 (0-41) U/L Alkaline Phosphata se 98 (40-130) IU/L Troponin T Baselin e 21 H (0-15) ng/L Total Protein 7.0 (6.6-8.7) g/dL Albumin 3.9 (3.5-5.2) g/dL Globulin 3.1 (1.3-4.6) g/dL 11/04/20 Range/Units 11:12 WBC (4.0-10.0) 10^3/ uL RBC (4.1-5.3) 10^6/u L Hgb (11.7-16.6) g/dL Hct (42.0-52.0) % MCV (80-94) fL MCH (28.0-34.0) pg MCHC (30.0-36.0) g/dL RDW (12.1-15.1) % Plt Count (130-400) 10^3/c mm MPV (7.4-10.4) fL Neut % (Auto) % Lymph % (Auto) % [place] % (Auto) % Eos % (Auto) % Baso % (Auto) % Neut # (Auto) (1.8-7.7) 10^3/u L Lymph # (Auto) (0.8-4.8) 10^3/u L [place] # (Auto) (0.2-0.9) 10^3/u L Eos # (Auto) (0.0-0.8) 10^3/u L Baso # (Auto) (0.0-0.1) 10^3/u L Nucleated RBC % (a uto) % Nucleated RBCs # /100WBC PT 15.30 H (12.1-14.9) SECO NDS INR 1.18 (0.8-1.2) APTT 32.0 (23.9-36.7) SECO NDS Sodium (136-145) mmol/L Potassium (3.5-5.1) mmol/L Chloride (98-107) mmol/L Carbon Dioxide (22-29) mmol/L Anion Gap (5-19) BUN (8-23) mg/dL Creatinine (0.7-1.2) mg/dL GFR Calculation Glucose (65-115) mg/dL Calculated Osmolal ity (285-295) mOsm/k g Calcium (8.5-10.5) mg/dL Total Bilirubin (0.15-1.2) mg/dL AST (0-40) U/L ALT (0-41) U/L Alkaline Phosphata se (40-130) IU/L Troponin T Baselin e (0-15) ng/L Total Protein (6.6-8.7) g/dL Albumin (3.5-5.2) g/dL Globulin (1.3-4.6) g/dL Discharge Plan Discharge Patient Disposition: Admitted As Inpatient Admit Provider: Prateek Katz Clinical Impression: Cerebrovascular accident, CAD (coronary artery disease), Diabetes mellitus, Hypertension, Hyperlipidemia, Obesity Condition: Stable Coding Level of Care Code ED Buckle Stringer for Chg Fwd Exam Comprehensive
[2020-11-04 10:49] LABS: Positive C 1
[2020-11-04 10:51] LABS: Basophils % 0.2 %; Eosinophils # 0.1 10^3/uL (0.0-0.8); Eosinophils % 1.6 %; Mean Platelet Volume 10.5 fL (7.4-10.4); Monocytes # 0.3 10^3/uL (0.2-0.9); Nucleated Red Blood Cells % 0 %
[2020-11-04 11:13] LABS: Troponin(5th) Baseline 21 ng/L (0-15)
[2020-11-04 11:15] LABS: Hemoglobin 14.8 g/dL (11.7-16.6); Red Blood Count 4.75 10^6/uL (4.1-5.3); White Blood Count 5.8 10^3/uL (4.0-10.0)
[2020-11-04 11:16] LABS: Hematocrit 42.6 % (42.0-52.0); Lymphocytes # 1.6 10^3/uL (0.8-4.8); Mean Corpuscular HGB Conc 34.7 g/dL (30.0-36.0); Mean Corpuscular Hemoglobin 31.2 pg (28.0-34.0); Mean Corpuscular Volume 89.7 fL (80-94); Monocytes % 5.7 %; Neutrophils # 3.74 10^3/uL (1.8-7.7); Platelet Count 83 10^3/cmm (130-400); Red Cell Distribution Width 13.5 % (12.1-15.1); Slide Review Slide Review Perform
[2020-11-04 11:17] LABS: Alanine Aminotransferase 11 U/L (0-41); Albumin Level 3.9 g/dL (3.5-5.2); Alkaline Phosphatase 98 IU/L (40-130); Aspartate Amino Transferase 26 U/L (0-40); Blood Urea Nitrogen 8 mg/dL (8-23); Calcium 8.3 mg/dL (8.5-10.5); Carbon Dioxide 24 mmol/L (22-29); Chloride 102 mmol/L (98-107); Globulin 3.1 g/dL (1.3-4.6); Glucose 174 mg/dL (65-115); Osmolality Calculated 287 mOsm/kg (285-295); Sodium 137 mmol/L (136-145); Total Bilirubin 2.1 mg/dL (0.15-1.2)
[2020-11-04 11:25] LABS: Anion Gap 14.9 (5-19); Potassium 3.9 mmol/L (3.5-5.1)
[2020-11-04 11:51] LABS: INR 1.18 (0.8-1.2)
--- NOTE | 2020-11-04 12:40 | ECG_ITS ---
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 Measurements Intervals [place] Rate: 43 P: 71 MI: 239 QRS: -60 QRSD: 156 T: -32 QT: 545 QTc: 465 Interpretive Statements SINUS BRADYCARDIA WITH PREMATURE VENTRICULAR CONTRACTIONS RIGHT BUNDLE BRANCH BLOCK [120+ ms QRS DURATION, UPRIGHT V1, 40+ ms S IN I/aVL/V4/V5/V6] LEFT ANTERIOR FASCICULAR BLOCK [QRS AXIS <= -45, QR IN I, RS IN II] ST DEPRESSION, CONSIDER SUBENDOCARDIAL INJURY [0.1+ mV ST DEPRESSION] Compared to ECG 11/04/2020 11:17:57 Left anterior fascicular block now present Sinus bradycardia no longer present First degree AV block no longer present Left-axis deviation no longer present Left ventricular hypertrophy no longer present ST (T wave) deviation still present Electronically Signed On 11-05-2020 17:09:02 CDT by Tan Burns M.D. [id number]
[2020-11-04 13:13] LABS: Troponin 5 2HR 19.64 ng/L (0-15)
[2020-11-04 13:16] LABS: Troponin 5 2HR Delta -1.36 ABS# (0-10)
[2020-11-04 13:38] LABS: Add Urine Microscopic? YES; Bilirubin Urine 1+ (Negative); Blood Urine 2+ (Negative); Glucose Urine UA Trace (Normal); Ketones Urine Negative (Negative); Leukocyte Esterase Urine Trace (Negative); Nitrate Urine Negative (Negative); Protein Urine 1+ (Negative); Urine Appearance Clear (CLEAR); Urine Color Yellow (Yellow); Urobilinogen Urine 4 mg/dL (Negative); pH Urine 7 (5-7)
--- NOTE | 2020-11-04 13:41 | USCV_ITS ---
Galen Macdonald Age: 70 Gender: M : 1950 Exam Date: 11/04/2020 16:10 Ordering Phys: Prateek Katz MD Technologist: Emy Batista [place] [facility] [place]ication: CVA, CAD, CHEST PAIN BP: 163 / 73 HR: 52 Rhythm: Sinus Technical Quality: Adequate MEASUREMENTS (Male / Female) Normal Values 2D ECHO LV Diastolic Diameter PLAX 6.5 cm 4.2 - 5.9 / 3.9 - 5.3 cm LV Systolic Diameter PLAX 4.7 cm IVS Diastolic Thickness 2.2 cm 0.6 - 1.0 / 0.6 - 0.9 cm IVS Systolic Thickness 2.8 cm LVPW Diastolic Thickness 1.5 cm 0.6 - 1.0 / 0.6 - 0.9 cm LVPW Systolic Thickness 2.8 cm LVOT Diameter 2.0 cm LV Ejection Fraction 2D Teich 52.9 % LV Ejection Fraction MOD 2C -9.8 % LV Ejection Fraction 2C AL -9.5 % LA Diameter 4.7 cm LA Width 3.9 cm LA Height 4.5 cm RA Width 3.1 cm RA Height 3.5 cm Aorta at Sinotubular Diameter 3.5 cm M-MODE LV Diastolic Diameter MM 7.1 cm 4.2 - 5.9 / 3.9 - 5.3 cm LV Systolic Diameter MM 5.0 cm LV Ejection Fraction MM Teich 55.8 % IVS Diastolic Thickness MM 1.4 cm 0.6 - 1.0 / 0.6 - 0.9 cm IVS Systolic Thickness MM 2.7 cm LVPW Diastolic Thickness MM 1.7 cm 0.6 - 1.0 / 0.6 - 0.9 cm LVPW Systolic Thickness MM 2.3 cm Aortic Annulus Diameter 4.4 cm LA Ao Ratio MM 1.2 MV E Point Septal Separation 1.0 cm DOPPLER AV Peak Velocity 100.0 cm/s LVOT Peak Velocity 74.0 cm/s AV Area Cont Eq vti 2.1 cm squared AV Area Cont Eq pk 2.3 cm squared MV Area PHT 2.7 cm squared Mitral E to A Ratio 0.8 MV E' Velocity 39.5 cm/s Mitral E to MV E' Ratio 9.2 Mitral E to LV E' Lateral Ratio 9.1 Mitral E to LV E' Septal Ratio 9.3 TR Peak Velocity 169.0 cm/s TR Peak Gradient 11.4 mmHg TV Peak E Velocity 76.0 cm/s Right Atrial Pressure 3.0 mmHg Pulmonary Artery Systolic Pressu 14.4 mmHg PV Peak Velocity 90.0 cm/s RV Acceleration Time 0.1 s RV Ejection Time 0.3 s RV AcT/ET 0.2 FINDINGS Left Ventricle Normal LV size with borderline low ejection fraction 50 to 55%. Mild left ventricular hypertrophy. No regional wall motion abnormalities. Grade I/IV diastolic dysfunction (abnormal relaxation filling pattern), normal to mildly elevated filling pressures. Mild diffuse hypokinesia of the lateral wall segments. Right Ventricle The right ventricle is normal in size and function. Right Atrium The right atrium is normal in size. Left Atrium Mildly increased left atrial size. Mitral Valve Thickened mitral valve. Mild mitral annular calcification. Aortic Valve Thickened aortic valve. Tricuspid Valve Trace to mild tricuspid valve regurgitation. Pulmonic Valve No gross abnormalities noted Pericardium Normal pericardium without effusion. Aorta Normal ascending aorta dimension. CONCLUSIONS Normal LV size with borderline low ejection fraction 50 to 55%. Wall motion abnormality as mentioned above. Mild left ventricular hypertrophy. No regional wall motion abnormalities. Grade I/IV diastolic dysfunction (abnormal relaxation filling pattern), normal to mildly elevated filling pressures. Mildly increased left atrial size. Trace to mild tricuspid valve regurgitation. Thickened aortic and mitral valves. Normal pulmonary artery peak systolic pressure No obvious intracardiac masses. Pericardial effusion No previous study is available for comparison. Dr Niharika Garcia MD [facility] (Electronically Signed) Final Date: 05 November 2020 08:31 S
--- NOTE | 2020-11-04 13:41 | USCV_ITS ---
Galen Macdonald Age: 70 Gender: M : 1950 Exam Date: 11/04/2020 16:39 Ordering Phys: Prateek Katz MD Technologist: Emy Batista [place]am [place] [facility] [place] [facility] [place] Indication: CVA Risk Factors: Previous Vascular Surgery: Right Brachial BP: / Left Brachial BP: / Right Left Velocity (cm/s) Spectral Plaque Velocity (cm/s) Spectral Plaque Syst/Diast Broadening Syst/Diast Broadening 76.10/ 8.80 Prox CCA 116.90/ 8.80 79.40/ 12.10 Mid CCA 99.20 / 11.00 74.30/ 13.70 Distal CCA 78.80 / 11.50 59.80/ 8.50 Prox ICA 88.20 / 11.00 71.80/ 12.80 Mid ICA 59.00 / 19.40 56.40/ 12.00 Distal ICA 63.70 / 10.10 130.10 ECA 138.10 0.90 ICA/CCA 0.75 Antegrade Vertebral Antegrade 47.90/ 16.20 cm/s 54.40/ 10.90 cm/s Tri Subclavian Tri 142.9 121.3 0 0 FINDINGS Moderate heterogeneous plaques at the bifurcations and proximal internal carotid arteries bilaterally. Intimal thickening and minimal plaques in the common carotid arteries bilaterally. Antegrade flow in the vertebral arteries bilaterally. Normal Doppler flow velocities. CONCLUSIONS Moderate heterogeneous plaques at the bifurcations and proximal internal carotid arteries bilaterally suggesting less than 50% stenosis. Intimal thickening and minimal plaques in the common carotid arteries bilaterally. No previous studies are available for comparison. Dr Niharika Garcia MD [facility] (Electronically Signed) Final Date: 05 November 2020 08:34 S
[2020-11-04 13:46] LABS: Amphetamines Screen Urine Negative (Negative); Barbiturates Screen Urine Negative (Negative); Benzodiazepines Screen Urine Negative (Negative); Cocaine Screen Urine Negative (Negative); PCP Screen Urine Negative (Negative); THC Screen Urine Negative (Negative)
[2020-11-04 13:48] LABS: Add Urine Culture? Yes; Bacteria Urine 4+ /hpf
[2020-11-04 14:01] LABS: Opiate Screen Urine Negative (Negative)
--- NOTE | 2020-11-04 16:40 | ECG_ITS ---
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 Measurements Intervals [place]ris Rate: 52 P: 35 PA: 237 QRS: -42 QRSD: 165 T: -39 QT: 504 QTc: 469 Interpretive Statements SINUS BRADYCARDIA WITH FIRST DEGREE AV BLOCK MARKED LEFT AXIS DEVIATION [QRS AXIS < -30] RIGHT BUNDLE BRANCH BLOCK [120+ ms QRS DURATION, UPRIGHT V1, 40+ ms S IN I/aVL/V4/V5/V6] Compared to ECG 11/04/2020 13:46:12 No significant changes Electronically Signed On 11-04-2020 22:08:08 CDT by Julia Gibson M.D. [id number]
--- NOTE | 2020-11-04 16:57 | P.HP_ITS ---
Providers/Chief Complaint Admitting Physician: Prateek Katz Primary Care Provider: ALVARO Hurst Chief Complaint: facial droop History of Present Illness 70-year-old gentleman with history of CAD, car stenting with 5 stents, DM 2, HTN, HLD, ischemic cardiomyopathy, CHF, following with cardiology in office with last known normal around 10-11 PM last night, was brought to the emergency room by his after noted to have difficulty speaking, right-sided weakness, and to her appearance of what she thought was left side facial droop, difficulty speaking, to the point that she could not understand him. Emergency room he was found to have mild aphasia, some right side facial droop, right-sided ataxia on [id number] of the right leg, noted perhaps mild confusion somewhat repeating himself. CT of the head without acute intracranial hemorrhage or edema. Mild atrophy and prior lacunar infarct right garcia radiata. He was not found to be candidate for TPA or CTA assessment. Blood pressure noted somewhat elevated, as high as 184/89 but not treated with purpose of permissive hypertension. Noted with mild sinus bradycardia heart rates in the 50s. Troponin 20.1-19.64. EKG with sinus bradycardia possible LVH, RBBB. His symptoms were found to be improv ing. During my visit he is awake, but somewhat sleepy, states that he feels tired. Denies headache, dizziness, double vision, room spinning around him. No fever, chills, neck stiffness. States he could not necessarily feel something abnormal. States his age and the current month correctly. His states that he did lift some heavy pieces of wood several days ago, and at that time was even having some pain in his left shoulder going down his left arm. He apparently did not tell anybody about that at the time. Currently he is chest pain-free. Incidentally noted chronic thrombocytopenia with platelets in the 80s. He denies any recent medication changes, confirmed by his . His legs have been bothering him recently giving him more pain, some trouble walking. Review of Systems Const: Reports: other (feels tired, sleepy); Denies: fever(s), chills, body aches or malaise Eyes: Denies: change in vision or eye redness ENMT: Denies: throat pain, oral sores or ear or mastoid pain Card: Denies: chest pain, edema, pre-syncope or dyspnea on exertion Resp: Denies: dyspnea, productive cough, change in phlegm color or hemoptysis GI: Denies: abdominal pain, nausea, vomiting, diarrhea, constipation, hematochezia or melena : Denies: flank pain, difficulty urinating, urinary frequency or hematuria Musc: Denies: back pain, joint swelling or joint redness Skin/Breast: Denies: rash, sores or new lesions Neuro: Reports: lack of coordination and Slurred speech present; Denies: headache(s), numbness in extremities, weakness in extremities, dizziness, confusion or seizure-like activity Endo: Denies: polyuria or polydipsia Mao/Lymph: Reports: easy bruising; Denies: easy bleeding or purpura All/Imm: Denies: urticaria, throat swelling or tongue swelling Medications/Allergies Home Medications Medication Instructions Recorded Confirmed Last Taken Type acetaminophen 500 mg tablet 500 mg PO Q4H PRN 06/10/19 11/04/20 06/20/19 History aspirin 325 mg tablet 325 mg PO DAILY tab 06/10/19 11/04/20 06/19/19 History glipizide 10 mg tablet 10 mg PO BID 06/10/19 11/04/20 06/24/19 06:00 History insulin glargine 100 unit/mL (3 55 unit SUBCUT DAILY 06/10/19 11/04/20 06/22/19 History mL) subcutaneous pen lisinopril 40 mg tablet 40 mg PO DAILY 06/10/19 11/04/20 06/24/19 History tamsulosin 0.4 mg capsule 0.4 mg PO DAILY 06/10/19 11/04/20 06/23/19 History metoprolol tartrate 50 mg tablet 25 mg PO BID tab 08/05/19 11/04/20 Unknown History nitroglycerin 0.4 mg sublingual 0.4 mg SUBLINGUAL Q5M PRN #20 tab 08/05/19 11/04/20 Unknown Rx tablet furosemide 40 mg tablet 40 mg PO DAILY #30 tab 08/08/19 11/04/20 Unknown Rx potassium chloride 20 mEq 20 meq PO DAILY #30 tab 08/08/19 11/04/20 Unknown Rx tablet,extended release Allergies Allergy/AdvReac Type Severity Reaction Status Date / Time Penicillins AdvReac ADR-Cramping Verified 05/19/20 15:38 of the Muscles PFSH Acute PFSH: Medical History (Updated 11/04/20 @ 17:08 by Prateek Katz MD) Benign prostatic hyperplasia with lower urinary tract symptoms CAD (coronary artery disease) Chronic pain Diabetes mellitus GERD (gastroesophageal reflux disease) H/O adenomatous polyp of colon Hyperlipidemia Hypertension Ischemic cardiomyopathy Myocardial infarction Obesity Status post replacement of knee joint Surgical History (Updated 11/04/20 @ 17:01 by Prateek Katz MD) Hx of appendectomy Hx of hernia repair Hx of knee surgery Post PTCA Family History Mother Cancer Denies family history of Diabetes CAD (coronary artery disease) Clotting disorder Dementia Hyperlipidemia Psychiatric illness Chronic kidney disease (CKD) Suicide Anesthesia complication Bleeding disorder Family history of premature coronary artery disease Lung disease Hypertension Stroke Social History Smoking and tobacco status: former smoker Alcohol intake: former Substance/Drug Use: never Lives independently: Yes Household members: spouse Marital status: Current occupational status: retired Vitals/I&O/Wt Last Vital Signs Temp 98.5 F 11/04/20 15:47 Pulse 49 L 11/04/20 15:47 Resp 16 11/04/20 15:47 BP 163/79 11/04/20 15:47 Pulse Ox 96 11/04/20 15:47 Weight last 48 hrs Weight 117.934 kg Physical Exam Const: COMMON NORMALS: no acute distress and patient oriented x3 NUTRITIONAL APPEARANCE: overweight ORIENTATION/CONSCIOUSNESS: Yes lethargic (But cooperates, does take him a bit to most of her responses, but does resp) OTHER: During the visit symptoms appear to have been improving including speech HENMT: COMMON NORMALS: oropharynx normal Neck/C-Spine: COMMON NORMALS: no JVD Resp: COMMON NORMALS: normal respiratory effort and clear to auscultation bilaterally AUSCULTATION: clear to auscultation bilaterally Cardio: COMMON NORMALS: no JVD, regular rhythm, S1 normal heart sound present, S2 normal heart sound present and No murmurs present (Cardio) RATE: bradycardic RHYTHM: regular rhythm HEART SOUNDS: S1 normal heart sound present and S2 normal heart sound present GI: COMMON NORMALS: Normal to inspection, nondistended, normoactive bowel sounds present, Soft to palpation and non-tender PALPATION: Yes Soft to palpation Extremity: COMMON NORMALS: no joint enlargement and no pedal edema Neuro: COMMON NORMALS: patient oriented x3 and moves all extremities SENSORIUM/ORIENTATION: Yes other (Answers questions correctly.) MENINGEAL SIGNS: Yes no meningeal signs CRANIAL NERVES: Yes other (To me appears R side droop, but chronic downturned corners of the mouth, mancuso) COORDINATION/BALANCE: [id number] test normal SPEECH: abnormal speech and expressive aphasia (Mild) MOTOR EXAM: Pronator motor function not present and Other motor observations present (Strength 4/5 right upper) COORDINATION: other (HTS mildly abnormal on the right, but appears to be improving) OTHER: No trouble tracking. Denies vertigo. Visual veloz full to confrontation. Skin: COMMON NORMALS: no rashes or lesions noted GENERAL SKIN EXAM: no rashes or lesions noted Data : 11/04/20 10:38 11/04/20 09:38 A&P Assessment and plan (1) Cerebrovascular accident: With some residual right-sided ataxia. To me appears to have right-sided facial droop, although with currently downturned corners of the mouth, fullness in the neck and lower face, decided the facial droop somewhat difficult to determine. The had thought that left side had the facial droop at home. Aspirin, start statin. Assess carotid Doppler. Monitor on telemetry. Assess TTE. Speech therapy assessment, PT, OT. Permissive hypertension at this time. Discussed with him and his long-term blood pressure control will be important. He tells me he does not check his blood pressures at home. Additionally discussed possibility of CVA following perhaps [place] given chest pain several days ago after exertion. Currently chest pain-free. Assess troponin, EKG series. Status: Acute (2) Sinus bradycardia: Hold metoprolol for now. Monitor on telemetry. Status: Acute (3) Chest pain: Troponin, EKG series. TTE. Continue aspirin. Add statin. Monitor symptoms. Hold beta-loc for now due to bradycardia. Status: Acute Additional A&P Information Hypertension CAD: Status post 5 stents per patient Ischemic cardiomyopathy, CHF: Currently does not appear in exacerbation. Monitor. Reassess volume status. Resume Lasix possibly tomorrow. 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 Acute encephalopathy: Mild confusion, repeating himself, although this may be secondary to some aphasia, otherwise oriented, appears to have good insight. Check TSH. Check ammonia. UA done, not entirely convincing for UTI, follow-up urine culture. Microscopic hematuria noted Leg pain: Check CK, PT, OT evaluation. Attestations Medical Necessity Statement*: Admission of over 2 midnights is going to be needed for assessment of management of acute CVA, recent chest pain, with history of underlying CAD, sinus bradycardia. Coding Level of Care Code Acute Cataract Lens Generator for Maicol Douglas Diagnoses Cerebrovascular accident I63.9 Sinus bradycardia R00.1 Chest pain R07.9
[2020-11-04 17:27] LABS: Glucose Point of Care 112 mg/dL (70-110)
[2020-11-04 17:41] LABS: Troponin 5 6HR 18.63 ng/L (0-15)
[2020-11-04 17:54] LABS: Troponin 5 6HR Delta -2.37 ng/L (0-12)
--- NOTE | 2020-11-04 18:04 | CTR_ITS ---
PROCEDURE INFORMATION: Exam: CT Angiography Head With Contrast, Arteriography Exam date and time: 11/04/2020 6:10 PM Age: 70 years old Clinical indication: Speech disturbance and weakness; Patient HX: RT side weakness/facial droop; Additional info: Worsening facial droop TECHNIQUE: Imaging protocol: Computed tomography angiography of the head with contrast. Exam focused on the arteries. 3D rendering (Not supervised by radiologist): MIP and/or 3D reconstructed images were created by the technologist. Total images: 870 Radiation optimization: All CT scans at this facility use at least one of these dose optimization techniques: automated exposure control; mA and/or kV adjustment per patient size (includes targeted exams where dose is matched to clinical indication); or iterative reconstruction. Contrast material: OMNI 350; Contrast volume: 95 ml; Contrast route: INTRAVENOUS (IV); COMPARISON: CT head wo con* [id number] 11/04/2020 10:42 AM RADIATION DOSE METRICS: Total DLP (mGy-cm): 2719.84 FINDINGS: ANTERIOR CIRCULATION: Right internal carotid artery: Mild cerebral arteriosclerosis of the internal carotid artery terminus without stenosis. Intracranial segment is patent with no significant stenosis. No aneurysm. Right middle cerebral artery: Unremarkable. No occlusion or significant stenosis. No aneurysm. Right anterior cerebral artery: Unremarkable. No occlusion or significant stenosis. No aneurysm. Left internal carotid artery: Mild cerebral arteriosclerosis of the internal carotid artery terminus without stenosis.Intracranial segment is patent with no significant stenosis. No aneurysm. Left middle cerebral artery: Very short segment narrowing/stenosis estimated approximately 60-70% at the origin of the left middle cerebral artery without occlusion. Clinical significance indeterminate. Normal flow distally. Left anterior cerebral artery: Unremarkable. No occlusion or significant stenosis. No aneurysm. POSTERIOR CIRCULATION: Right vertebral artery: Unremarkable. No occlusion or significant stenosis. No aneurysm. Left vertebral artery: Unremarkable. No occlusion or significant stenosis. No aneurysm. Basilar artery: Unremarkable. No occlusion or significant stenosis. No aneurysm. Right posterior cerebral artery: Unremarkable. No occlusion or significant stenosis. No aneurysm. Left posterior cerebral artery: Unremarkable. No occlusion or significant stenosis. No aneurysm. IMPRESSION: 1. Very short segment narrowing/stenosis estimated approximately 60-70% at the origin of the left middle cerebral artery without occlusion. Clinical significance indeterminate. Unimpeded flow distally. 2. Mild cerebral arteriosclerosis of the internal carotid artery terminus without stenosis bilaterally. PROCEDURE INFORMATION: Exam: CT Angiography Neck With Contrast Exam date and time: 11/04/2020 6:10 PM Age: 70 years old Clinical indication: Speech disturbance and weakness; Patient HX: RT side weakness/facial droop; Additional info: Worsening facial droop TECHNIQUE: Imaging protocol: Computed tomography angiography of the neck with contrast. 3D rendering (Not supervised by radiologist): MIP and/or 3D reconstructed images were created by the technologist. Radiation optimization: All CT scans at this facility use at least one of these dose optimization techniques: automated exposure control; mA and/or kV adjustment per patient size (includes targeted exams where dose is matched to clinical indication); or iterative reconstruction. Contrast material: OMNI 350; Contrast volume: 95 ml; Contrast route: INTRAVENOUS (IV); COMPARISON: CT head wo con* [id number] 11/04/2020 10:42 AM RADIATION DOSE METRICS: Total DLP (mGy-cm): 2719.84 FINDINGS: Right common carotid artery: No stenosis. No dissection or occlusion. Right internal carotid artery: No stenosis of the extracranial segment. No dissection or occlusion. Right external carotid artery: No occlusion or stenosis of the origin. Left common carotid artery: No stenosis. No dissection or occlusion. Left internal carotid artery: No stenosis of the extracranial segment. No dissection or occlusion. Left external carotid artery: No occlusion or stenosis of the origin. Right vertebral artery: No stenosis. No dissection or occlusion. Left vertebral artery: No stenosis. No dissection or occlusion. Oropharynx: Asymmetrical fullness to the left palatine tonsil without visible mass or abscess. Clinical significance indeterminate. Soft tissues: Unremarkable for age. Bones/joints: Advanced spondylosis deformans with degenerative disease of the cervical spine. Large anterior claw syndesmophytes. No visible acute osseous abnormality within the field of view. Lungs: Subsegmental consolidated alveolar airspace disease superior segment left lower lobe. CT/CT angio headneck* [id number] IMPRESSION: 1. No hemodynamically significant stenosis or occlusion. 2. Mild atheromatous plaquing of the bilateral carotid artery bulbs. 3. Subsegmental consolidated alveolar airspace disease superior segment left lower lobe. 4. Asymmetrical fullness to the left palatine tonsil without visible mass or abscess. Clinical significance indeterminate. REFERENCES: NASCET CRITERIA. The degree of internal carotid artery stenosis is based on NASCET criteria. Normal is no stenosis. Mild is less than 50% stenosis. Moderate is 50-69% stenosis. Severe is 70% to 99% stenosis. Total occlusion is no detectable patent lumen. Radiation Dose CTDIVOL = (mGy): DLP = 2719.84~2719.84 (mGy-cm)
[2020-11-04] MEDS: heparin 5,000 unit/mL INJ 1 mL 5000 UNIT SUBCUT (18:05)
[2020-11-04] MEDS: aspirin 325 mg Tablet PO (18:15)
[2020-11-04] MEDS: iohexol 350 mg/mL 100 mL Btl IV (18:35)
[2020-11-04 18:45] LABS: Creatine Phosphokinase 35 U/L (39-308)
[2020-11-04 18:55] LABS: Thyroid Stimulating Hormone 0.67 uIU/mL (0.27-4.20)
--- NOTE | 2020-11-04 19:52 | PC.NURSE ---
ROUNDING/NEUROCHECK Is awake and alert but speech quite slurred and doesn't always answer my questions. Just looks at me sometimes without answering. Says he is tired. Son is at bedside and says this is the way he has been with him too. Fany says he helped him to the bathroom and he seemed to ambulate well. Says he seemed a little off balance but did not fall to side Some right facial drooping and mild weakness to right extremities. Able to move leg and arm and hold up without drift but is noted to be weaker than left. Remains NPO. Son leaving and bed alarm was placed on for safety precautions
[2020-11-04] MEDS: doxycycline 100 MG in sodium chloride 0.9% (plus) 100 ML IV (20:10)
[2020-11-04] MEDS: atorvastatin 40 mg Tablet PO (20:12)
[2020-11-04 21:03] LABS: Glucose Point of Care 151 mg/dL (70-110)
[2020-11-04 23:21] LABS: Lactate Dehydrogenase 187 U/L (135-225)
[2020-11-05] VITALS (14 sets, daily range): BP systolic 131–190; BP diastolic 65–117; PULSE 50–87; RESP 16–18; TEMP 36.5–37; O2SAT 94–98
[2020-11-05] MEDS: heparin 5,000 unit/mL INJ 1 mL 5000 UNIT SUBCUT ×2 (02:40→16:32)
[2020-11-05 06:05] LABS: Basophils % 0.2 %; Eosinophils # 0.1 10^3/uL (0.0-0.8); Eosinophils % 2.1 %; Hematocrit 39.8 % (42.0-52.0); Hemoglobin 14.1 g/dL (11.7-16.6); Lymphocytes # 1.9 10^3/uL (0.8-4.8); Mean Corpuscular HGB Conc 35.4 g/dL (30.0-36.0); Mean Corpuscular Hemoglobin 31.5 pg (28.0-34.0); Mean Platelet Volume 10.5 fL (7.4-10.4); Monocytes # 0.3 10^3/uL (0.2-0.9); Monocytes % 6.2 %; Neutrophils % 56.3 %; Nucleated Red Blood Cells % 0 %; Platelet Count 83 10^3/cmm (130-400); Red Blood Count 4.47 10^6/uL (4.1-5.3); Red Cell Distribution Width 13.4 % (12.1-15.1); White Blood Count 5.3 10^3/uL (4.0-10.0)
[2020-11-05 06:18] LABS: Alanine Aminotransferase 9 U/L (0-41); Albumin Level 3.3 g/dL (3.5-5.2); Alkaline Phosphatase 84 IU/L (40-130); Anion Gap 13.6 (5-19); Aspartate Amino Transferase 22 U/L (0-40); Blood Urea Nitrogen 10 mg/dL (8-23); Calcium 8.1 mg/dL (8.5-10.5); Carbon Dioxide 24 mmol/L (22-29); Chloride 103 mmol/L (98-107); Globulin 3.3 g/dL (1.3-4.6); Glucose 127 mg/dL (65-115); Osmolality Calculated 285 mOsm/kg (285-295); Potassium 3.6 mmol/L (3.5-5.1); Sodium 137 mmol/L (136-145); Total Protein 6.6 g/dL (6.6-8.7)
[2020-11-05 06:35] LABS: Glucose Point of Care 124 mg/dL (70-110)
--- NOTE | 2020-11-05 06:40 | PC.NURSE ---
SHIFT SUMMARY Has been restless at times. Sits on side of bed for periods then lays down and rests with eyes closed for periods. Has used urinal plus walked to bathroom and urinating well. Did have episode of missing urinal and getting PJs wet. Was assisted to clean and change. Continues to have difficulty with expressive aphasia but is putting more words together this morning and easier to understand words. Speech remains slurred with right facial droop present. Still at times stares at nurse as if does not know how to answer questions or can't find the words to do so. Does better with Yes or No questions. Has denied pain. Right side with some weakness but moves extremities well.
[2020-11-05] MEDS: insulin glargine 100 units/1 mL 10 UNIT SUBCUT (08:52)
[2020-11-05] MEDS: aspirin 325 mg Tablet PO (08:52)
[2020-11-05] MEDS: doxycycline 100 MG in sodium chloride 0.9% (plus) 100 ML IV ×2 (08:53→21:28)
[2020-11-05 10:44] LABS: Glucose Point of Care 162 mg/dL (70-110)
--- NOTE | 2020-11-05 11:25 | PC.CHAP ---
Pastoral Care Encounter/Spiritual Assessment Type of Contact [] Declined medical transcription supervisor visit [] Patient/Family/Request visit [] Outpatient visit [] Follow-up visit [] Physician referral [] Code/Alert [x] Routine visit [] Staff referral [] Actively dying [] Patient sleeping [] Family support [] [] Out of room [] Palliative care [] [x] Receiving care in room [] Pre-surgical visit [] Trauma [x] Long length of stay [] ICU visit [] Other: Relational/Emotional Strength [] Patient feels connected with others/family/visitors/staff [] Distress [] Loneliness/isolation [] Abandonment Spirituality of Patient [x] Person of Adrianne [] Attends Confucianism of their Adrianne [x] Believes in Prayer [] Reads Bible or Anabaptism materials [] There are Spiritual issues to be addressed Med Surg Rn Interventions [x] Prayer [x] Active listening [x] Non-anxious presence [x] Spiritual/emotional support [] Crisis/trauma care [x] Spiritual counseling [] Bereavement support [] Provided bereavement packet [] Provided Bible/devotional materials [] Provided toy/stuffed animal, coloring book to patient or family member [] Provided Communion [] Anointing/[place] [] Salvation [x] Completed spiritual assessment [] Other: Impact on Illness or Injury [] Angry [x] Fearful [] Anxious [] Often cries [] Exhaustion [x] Unable to work [] Unable to attend muslim [] Unable to walk/stand [] Unable to read [] Unable to drive [] Unable to eat/drink [] Unable to sleep [] Unable to be with family [] Patient intubated [] Other: Summary he is not feeling good was able to communicate or know what the doctors report, not sure when he will be able to go home Time spent with patient 10 mins
--- NOTE | 2020-11-05 15:34 | P.PN_ITS ---
Subjective Subjective: Interval history: Last night with worsening right-sided facial droop, other symptoms improved with improved dexterity and right upper and lower extremity. Today ambulating unassisted. Aphasia worse, however. states has said few short statements to her, but could not muster this during my visit. Denies headache. Denies vertigo. No fever or chills. Vitals/I&O/Wt Last Vital Signs Temp 98.2 F 11/05/20 14:00 Pulse 51 L 11/05/20 14:00 Resp 16 11/05/20 14:00 BP 175/78 11/05/20 14:00 Pulse Ox 96 11/05/20 11:10 11/05/20 11/05/20 11/05/20 06:59 14:59 22:59 Intake Total 100 / 100 Output Total 100 / 100 Balance -100 / 0 100 / 100 Weight last 48 hrs Weight 117.934 kg Physical Exam Const: COMMON NORMALS: no acute distress, patient oriented x3 and alert GENERAL APPEARANCE: cooperative; not lethargic NUTRITIONAL APPEARANCE: overweight MARY ENTATION/CONSCIOUSNESS: Yes awake; not lethargic OTHER: Sitting up at bedside. is by him. HENMT: COMMON NORMALS: oropharynx normal Neck/C-Spine: COMMON NORMALS: no meningeal signs and no JVD Resp: COMMON NORMALS: normal respiratory effort and clear to auscultation bilaterally AUSCULTATION: clear to auscultation bilaterally Cardio: COMMON NORMALS: no JVD, regular rhythm, S1 normal heart sound present, S2 normal heart sound present and No murmurs present (Cardio) RATE: bradycardic RHYTHM: regular rhythm HEART SOUNDS: S1 normal heart sound present and S2 normal heart sound present GI: COMMON NORMALS: Normal to inspection, nondistended, normoactive bowel sounds present, Soft to palpation and non-tender PALPATION: Yes Soft to palpation Extremity: COMMON NORMALS: no joint enlargement and no pedal edema Neuro: COMMON NORMALS: patient oriented x3 and moves all extremities SENSORIUM/ORIENTATION: Yes alert and No lethargic MENINGEAL SIGNS: Yes no meningeal signs CRANIAL NERVES: Yes other (To me appears R side droop, but chronic downturned corners of the mouth, mancuso) COORDINATION/BALANCE: [id number] test normal SPEECH: abnormal speech and expressive aphasia (Today noted severe aphasia, persistent right facial droop) SENSORY EXAM: Yes Normal double simultaneous stimulation for sensation; No sensory level loss detected MOTOR EXAM: 5/5 motor strength present throughout, Pronator motor function not present and Other motor observations present COORDINATION: [id number] test normal OTHER: No trouble tracking. Denies vertigo. Visual veloz full to confrontation. Skin: COMMON NORMALS: no rashes or lesions noted GENERAL SKIN EXAM: no rashes or lesions noted Data : 11/05/20 05:20 11/05/20 05:20 A&P Assessment and plan (1) Cerebrovascular accident: Acute CVA with prior CVA noted on CT of the head at presentation. Symptoms initially improved, subsequently with worsening right-sided facial droop. Today appears to have worse aphasia, but with resolution of ataxia on the right side of the body, and with symmetrical strength today. Has not been hypotensive. Yesterday due to worsening symptoms CT angiogram head and neck obtained, with incidental findings but no hemodynamically significant stenosis or occlusion. Given recent history of tick bites, lower extremity pains, right-sided facial droop, which appears may involve the forehead somewhat as well due to decreased wrinkling on the right, although is able to lift his eyebrow, bradycardia which persists even despite discontinuation of beta-loc, discussed possible tickborne illness/Lyme disease with Workman's palsy. Tick panel sent. Empirically started on doxycycline. He is certainly having a lot of difficulty communicating even by writing, although as discussed judgment regarding decisional capacity right now would be reserved. He does appear to have insight/understanding of what is going on, certainly cooperates well with physical examination, answer some basic questions by nodding. Discussed suspicion of CVA is high given aphasia, risk factors, prior CVA, however, due to some other associated symptoms MRI would be helpful. Requested. ST evaluation. Appreciate assessment. His states he has previously had some mild trouble swallowing as well with food sticking in his esophagus. May have had endoscopic evaluation but a while back, nothing recent. Discussed with him this may warrant additional assessment on outpatient basis. Monitor on telemetry. Assess TTE. PT, OT. Permissive hypertension at this time. We may cautiously resume some antihypertensives depending on his condition. Additionally discussed possibility of CVA following perhaps OR given chest pain several days ago after exertion. Currently chest pain-free. Troponin not suggestive of acute OR, but with very gentle downtrend, 21-18.63 at 6 hours. Given risk factors, questionable symptoms, may benefit from additional assessment by stress testing once condition less acute. Status: Acute (2) Sinus bradycardia: Currently persist despite holding metoprolol, in the 50s. This appears to be new as per discussion with him and his . Additional assessment with tick panel as above. Monitor on telemetry. TSH is normal. Recheck potassium, check magnesium. Status: Acute (3) Chest pain: Troponin, EKG series not suggestive of acute OR, but troponin with moderate abnormality with very mild downtrend, EKG nonspecific, possibly with some ST depression. TTE with borderline low ejection fraction, 50-55%, mild diffuse hypokinesia of lateral wall. Grade 1 diastolic dysfunction. Normal pericardium without effusion. Continue aspirin. Statin. Monitor symptoms. Hold beta-loc for now due to bradycardia. Would benefit from stress testing. Status: Acute Additional A&P Information Hypertension: Will need optimization. Due to some fluctuating symptoms, for now will allow to run on the higher side, depending on how he is doing, once stabilizes we will restart with his home medications. Hyperbilirubinemia: Minimal direct elevation, otherwise appears possibly indirect. With improvement today down to 2. Unclear etiology. LDH is normal. Haptoglobin is low, but in the setting of liver disease. Appears this had el evation back in June. Chronic thrombocytopenia. 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 No abdominal pain. Will recheck. CAD: Status post 5 stents per patient Ischemic cardiomyopathy, CHF: Currently does not appear in exacerbation. Monitor. Reassess volume status. Resume Lasix. 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 Acute encephalopathy: Mild confusion, repeating himself, although this may be secondary to some aphasia, otherwise oriented, appears to have good insight. Check TSH. Not sure what happened to ammonia level, resend ammonia. UA done, not entirely convincing for UTI, follow-up urine culture. Microscopic hematuria noted Leg pain: low CK, tick panel as above, PT, OT. Attestations Medical Necessity Statement*: Continue admission for assessment management of CVA with fluctuating symptoms, new bradycardia, possible recent OR. Coding Level of Care Code Acute [employer] B[employer] Coverer for Chg Fwd Diagnoses Cerebrovascular accident I63.9 Sinus bradycardia R00.1 Chest pain R07.9
[2020-11-05 16:27] LABS: Ammonia 44 umol/L (16-60)
[2020-11-05 17:22] LABS: Glucose Point of Care 113 mg/dL (70-110)
[2020-11-05 20:48] LABS: Glucose Point of Care 201 mg/dL (70-110)
[2020-11-05] MEDS: atorvastatin 40 mg Tablet PO (21:27)
[2020-11-06] VITALS (11 sets, daily range): BP systolic 164–181; BP diastolic 76–106; PULSE 57–82; RESP 16–20; TEMP 36.3–37.1; O2SAT 94–96
[2020-11-06] MEDS: heparin 5,000 unit/mL INJ 1 mL 5000 UNIT SUBCUT (03:12)
[2020-11-06 05:36] LABS: Basophils % 0.2 %; Eosinophils # 0.1 10^3/uL (0.0-0.8); Hematocrit 39.2 % (42.0-52.0); Hemoglobin 13.5 g/dL (11.7-16.6); Lymphocytes # 1.7 10^3/uL (0.8-4.8); Lymphocytes % 35.7 %; Mean Corpuscular HGB Conc 34.4 g/dL (30.0-36.0); Mean Corpuscular Volume 89.9 fL (80-94); Mean Platelet Volume 10.8 fL (7.4-10.4); Monocytes # 0.3 10^3/uL (0.2-0.9); Monocytes % 6.5 %; Neutrophils # 2.51 10^3/uL (1.8-7.7); Neutrophils % 54.4 %; Nucleated Red Blood Cells % 0 %; Platelet Count 74 10^3/cmm (130-400); Red Blood Count 4.36 10^6/uL (4.1-5.3); Red Cell Distribution Width 13.3 % (12.1-15.1); White Blood Count 4.6 10^3/uL (4.0-10.0)
[2020-11-06 05:51] LABS: Alanine Aminotransferase 9 U/L (0-41); Albumin Level 3.2 g/dL (3.5-5.2); Alkaline Phosphatase 83 IU/L (40-130); Anion Gap 10.7 (5-19); Aspartate Amino Transferase 23 U/L (0-40); Blood Urea Nitrogen 13 mg/dL (8-23); Calcium 8.1 mg/dL (8.5-10.5); Carbon Dioxide 25 mmol/L (22-29); Chloride 106 mmol/L (98-107); Globulin 3.2 g/dL (1.3-4.6); Glucose 129 mg/dL (65-115); Osmolality Calculated 288 mOsm/kg (285-295); Potassium 3.7 mmol/L (3.5-5.1); Sodium 138 mmol/L (136-145); Total Bilirubin 2.2 mg/dL (0.15-1.2); Total Protein 6.4 g/dL (6.6-8.7)
[2020-11-06 05:53] LABS: Magnesium 1.8 mg/dL (1.7-2.3)
[2020-11-06 06:51] LABS: Glucose Point of Care 129 mg/dL (70-110)
[2020-11-06] MEDS: aspirin 325 mg Tablet PO (09:21)
[2020-11-06] MEDS: insulin glargine 100 units/1 mL 10 UNIT SUBCUT (09:21)
[2020-11-06] MEDS: doxycycline 100 MG in sodium chloride 0.9% (plus) 100 ML IV (09:21)
[2020-11-06] MEDS: FUROsemide 40 mg Tablet PO (09:21)
[2020-11-06] MEDS: tamsulosin 0.4 mg Capsule PO (09:21)
[2020-11-06] MEDS: magnesium sulfate premix 2 GM/50 ML PIGGYBACK IV (11:52)
[2020-11-06 12:15] LABS: Glucose Point of Care 149 mg/dL (70-110)
[2020-11-06 12:16] LABS: Lyme AB Screen <0.90 index
--- NOTE | 2020-11-06 12:30 | MR_ITS ---
WS: [id number] MRI BRAIN WITH AND WITHOUT CONTRAST HISTORY: facial droop, aphasia, assess for CVA versus Workman's palsy. COMPARISON: CT 11/04/2020 TECHNIQUE: Multiplanar imaging performed through the brain with MultiHance 20 ml's IV. Acute diffusion-weighted abnormality within the LEFT putamen. Infarct involving majority of the LEFT putamen. Nonhemorrhagic infarct. No additional acute infarct. Otherwise there is moderate chronic microvascular ischemic type changes in the supratentorial white m atter. Prior lacunar infarct in the LEFT wojciech. Ventricles and extra-axial spaces are normal. Clivus and pituitary gland are normal. Visualized posterior fossa and brainstem are also normal. Postcontrast images are negative for masses or vascular malformations. Moderate luminal irregularity involving the LEFT M1 segment. Dural venous sinuses are normal. Paranasal sinuses: Well aerated with no significant disease. Mastoid air cells: Normal. Calvarium and scalp: Normal. MR/MR head wo/w con [id number] IMPRESSION: 1. Acute LEFT putamen infarct. Nonhemorrhagic. 2. Additional moderate chronic microvascular ischemic type changes in the supr atentorial white matter and a prior LEFT wojciech lacunar. 3. Moderate atherosclerotic changes in the LEFT M1 segment. No thrombus identi fied.
[2020-11-06] MEDS: gadobenate dimeglumine 20 mL vial IV (13:42)
[2020-11-06] MEDS: cefTRIAXone 1,000 MG in sodium chloride 0.9% (plus) 50 ML 100 MG IV (15:41)
[2020-11-06 17:00] LABS: Glucose Point of Care 168 mg/dL (70-110)
--- NOTE | 2020-11-06 17:08 | P.DS_ITS ---
Discharge Providers Date of Admission: 11/04/20 12:26 Date of Discharge: November 06, 2020 Attending Provider at Admission: Prateek Katz Attending Provider at Discharge: Prateek Katz Primary Care Provider: ALVARO Hurst Diagnoses at Discharge Discharge Diagnosis (1) Cerebrovascular accident: Status: Acute (2) Sinus bradycardia: Status: Acute (3) Chest pain: Status: Acute (4) Hyperbilirubinemia: Status: Acute (5) Hypertension: Status: Acute (6) Diabetes mellitus: Status: Acute (7) Thrombocytopenia: Status: Acute (8) Microscopic hematuria: Status: Acute Reason for Visit Reason for Visit: facial droop Hospital Course Hospital Course Pleasant 70-year-old gentleman was admitted to the hospital for assessment and management after waking up with right side weakness, clumsiness, facial droop, difficulty speaking, last known normal about 10-11 PM the night prior. He was outside the window for TPA. He was scoring 5 on NIHSS, with symptoms improving, and was not found a candidate for CT angiogram initially. CT of the head showed mild atrophy and prior lacunar infarct in right garcia radiata. Blood pressures were noted elevated. He was admitted for additional assessment on medical floor. Continued on aspirin and started on statin. Due to worsening aphasia, worsening right-sided facial droop, fluctuating symptoms, he was assessed additionally by CT angiogram of head and neck the same day, with finding of very short segment narrowing/stenosis estimated approximately 60-70% at the origin of left middle cerebral artery without occlusion, with indeterminate clinical significance. Unimpeded flow distally. Mild cerebral atherosclerosis of internal carotid artery terminus without stenosis bilaterally. CTA of the neck without any hemodynamically significant stenosis or occlusion. Mild atheromatous plaquing of bilateral carotid arteries bulbs. Segmental consolidation alveolar airspace disease superior segment left lower lobe. Asymmetrical fullness to the left pontine tonsil without visible mass or abscess. Clinical significance indeterminate. With some fluctuating symptoms and question of possible Workman's palsy with loss of wrinkling of the right side forehead, as well as thrombocytopenia, new bradycardia, recent tick bites, MRI of the brain was obtained, with finding of acute left putamen infarct, nonhemorrhagic. Additional moderate chronic microvascular ischemic type changes in the supratentorial white matter and a prior left wojciech lacunar infarct. Noted moderate atherosclerotic changes in the left M1 segment no thrombus identified. No atrial fibrillation was noted on monitoring. He underwent evaluation by echocardiography with finding of ejection fraction of 50-55%, no regional wall motion abnormality, grade 1 diastolic dysfunction, mild TVR, thickened aortic and mitral valves, no pericardial effusion. He had reported left-sided shoulder pain radiating to his left arm days prior to his after carrying some heavy planks of wood, exerting himself, troponin EKG series were checked. Troponin without peak, with gentle downtrend, and as discussed difficult to exclude he may not had prior cardiac event, although it remained chest pain-free in the hospital. With known coronary disease, event of chest pain, he is asked to be referred for stress testing for additional assessment of progression of coronary disease, as well as to continue follow-up with his teletype operator Dr. Burns. He was maintained on permissive hypertension. Although October 28 noted slow heart rates in the 50s initially, metoprolol was held. Continued on control of diabetes, although insulin dose was decreased to 10 units, and blood glucose remained well controlled. He was assessed by speech therapy with recommendation for dysphagia level 2 diet with ground consistency. Physical therapy and Occupational Therapy. Due to bradycardia, right-sided facial droop, but also loss of wrinkling at the right side forehead, thrombocytopenia, new bradycardia, and recent tick bites, he was empirically started also on doxycycline, and tick panel was sent out. Urinalysis with some microscopic hematuria on presentation, 5-10 WBC, subsequently growing 20-30,000 CFU strep agalactiae for which ceftriaxone was started. At discharge he will complete a course of cefdinir. With microscopic hematuria, please repeat UA to assess for resolution, and if not resolved, please consider additional assessment to exclude malignant causes. Mild encephalopathy noted on presentation had resolved. Perhaps related to UTI in addition to CVA. Overall he is doing better with improvement in ataxia of right side of body, symmetrical power currently, getting up, ambulating with a walker with standby assist. Right-sided facial droop persists. Aphasia is rather severe. He has been able to express several times that he wants to return home. As he otherwise remained stable, as per discussion with his , preference has been for him to return home, they are agreeable to set up for home health for PT, OT and ST. At discharge he is continued on aspirin, prescribed Plavix for 21 days, or as may be adjusted per neurology, statin. They will continue to monitor his blood pressures at home, with initiation of amlodipine and continuation of lisinopril, discontinuation of metoprolol due to bradycardia. Please follow-up heart rates for resolution of bradycardia in the office. His will be given teaching regarding administration of insulin as he currently is unable to do so. Glipizide is discontinued. Insulin for now is decreased to 10 units daily due to glucose levels. Please follow-up blood pressures and glucose levels in the office and adjust hypertension and diabetes treatment as appropriate. Of note noted hyperbilirubinemia of unclear significance and chronic nature in the hospital with mild worsening, with normal LDH, low haptoglobin, but in context of liver fibrosis, did not appear to have hemolysis. No recurrent thrombocytopenia. Possible hypersplenism as suspected by his broom handle dipper. Please follow-up bilirubin in the office. Physical Exam Const: COMMON NORMALS: no acute distress and alert GENERAL APPEARANCE: cooperative; not lethargic NUTRITIONAL APPEARANCE: overweight ORIENTATION/CONSCIOUSNESS: Yes awake; not lethargic OTHER: Sitting up at bedside. is by him. HENMT: COMMON NORMALS: oropharynx normal Neck/C-Spine: COMMON NORMALS: no meningeal signs and no JVD Resp: COMMON NORMALS: normal respiratory effort and clear to auscultation bilaterally AUSCULTATION: clear to auscultation bilaterally Cardio: COMMON NORMALS: no JVD, regular rhythm, S1 normal heart sound present, S2 normal heart sound present and No murmurs present (Cardio) RATE: bradycardic RHYTHM: regular rhythm HEART SOUNDS: S1 normal heart sound present and S2 normal heart sound present GI: COMMON NORMALS: Normal to inspection, nondistended, normoactive bowel sounds present, Soft to palpation and non-tender PALPATION: Yes Soft to palpation Extremity: COMMON NORMALS: no joint enlargement and no pedal edema Neuro: COMMON NORMALS: moves all extremities SENSORIUM/ORIENTATION: Yes alert and No lethargic MENINGEAL SIGNS: Yes no meningeal signs CRANIAL NERVES: Yes other (To me appears R side droop, but chronic downturned corners of the mouth, mancuso) COORDINATION/BALANCE: [id number] test normal SPEECH: abnormal speech and expressive aphasia (severe aphasia, persistent right facial droop) SENSORY EXAM: Yes Normal double simultaneous stimulation for sensation; No sensory level loss detected MOTOR EXAM: 5/5 motor strength present throughout, Pronator motor function not present and Other motor observations present COORDINATION: [id number] test normal OTHER: No trouble tracking. Denies vertigo. Visual veloz full to confrontation. Skin: COMMON NORMALS: no rashes or lesions noted GENERAL SKIN EXAM: no rashes or lesions noted Discharge Data Data Completed and Pending: Completed Studies During Hospitalization Category Date Time Status CT angio headneck * [id number] Stat Cat Scan 11/04/20 18:[address] head wo con* [id number] Stat Cat Scan 11/04/20 10:39 Completed XR chest 1V paula ble [id number] Stat Exams 11/04/20 10:39 Completed MR head wo/w con [id number] Routine MRI 11/06/20 12:30 Completed CV carotid duplex BI* [id number] Routine Ultrasound 11/04/20 13:41 Completed CV echo complete* [id number] Routine Ultrasound 11/04/20 13:41 Completed Pending at discharge Category Date Time Status Complete Blood Co unt w/Auto AM LABS Lab 11/07/20 04:00 Ordered Comprehensive Met abolic Panel AM LA BS Lab 11/07/20 04:00 Ordered Tick Panel Routin e Lab 11/04/20 18:40 Results Urine Culture Sta t Lab 11/04/20 13:13 Results Labs from last 24 hours 11/06/20 11/06/20 11/06/20 16:56 12:06 06:42 WBC RBC Hgb Hct MCV MCH MCHC RDW Plt Count MPV Neut % (Auto) Lymph % (Auto) [place] % (Auto) Eos % (Auto) Baso % (Auto) Neut # (Auto) Lymph # (Auto) [place] # (Auto) Eos # (Auto) Baso # (Auto) Nucleated RBC % (a uto) Nucleated RBCs # Sodium Potassium Chloride Carbon Dioxide Anion Gap BUN Creatinine GFR Calculation Glucose POC Glucose 168 H 149 H 129 H Calculated Osmolal ity Calcium Magnesium Total Bilirubin AST ALT Alkaline Phosphata se Total Protein Albumin Globulin Lyme Ab (Western B lot) 11/06/20 11/06/20 11/06/20 04:55 04:55 04:55 WBC 4.6 RBC 4.36 Hgb 13.5 Hct 39.2 L MCV 89.9 MCH 31.0 MCHC 34.4 RDW 13.3 Plt Count 74 L MPV 10.8 H Neut % (Auto) 54.4 Lymph % (Auto) 35.7 Madison % (Auto) 6.5 Eos % (Auto) 3.0 Baso % (Auto) 0.2 Neut # (Auto) 2.51 Lymph # (Auto) 1.7 Madison # (Auto) 0.3 Eos # (Auto) 0.1 Baso # (Auto) 0.0 Nucleated RBC % (a uto) 0 Nucleated RBCs # 0.0 Sodium 138 Potassium 3.7 Chloride 106 Carbon Dioxide 25 Anion Gap 10.7 BUN 13 Creatinine 0.8 GFR Calculation Not Reportable Glucose 129 H POC Glucose Calculated Osmolal ity 288 Calcium 8.1 L Magnesium 1.8 Total Bilirubin 2.2 H AST 23 ALT 9 Alkaline Phosphata se 83 Total Protein 6.4 L Albumin 3.2 L Globulin 3.2 Lyme Ab (Western B lot) 11/05/20 11/05/20 11/05/20 20:41 17:11 05:20 WBC RBC Hgb Hct MCV MCH MCHC RDW Plt Count MPV Neut % (Auto) Lymph % (Auto) Madison % (Auto) Eos % (Auto) Baso % (Auto) Neut # (Auto) Lymph # (Auto) Madison # (Auto) Eos # (Auto) Baso # (Auto) Nucleated RBC % (a uto) Nucleated RBCs # Sodium Potassium Chloride Carbon Dioxide Anion Gap BUN Creatinine GFR Calculation Glucose POC Glucose 201 H 113 H Calculated Osmolal ity Calcium Magnesium Total Bilirubin AST ALT Alkaline Phosphata se Total Protein Albumin Globulin Lyme Ab (Western B lot) <0.90 Vitals: Last Vital Signs Temp 98.7 F 11/06/20 16:44 Pulse 68 11/06/20 16:44 Resp 17 11/06/20 16:44 BP 181/100 11/06/20 16:44 Pulse Ox 94 11/06/20 16:44 Discharge Plan Discharge Patient Disposition: Home Health Service Condition: Stable Prescriptions: New amlodipine 5 mg tablet 5 mg PO DAILY Qty: 30 RF: 0 doxycycline hyclate 100 mg tablet 100 mg PO BID 12 Days Qty: 24 RF: 0 cefdinir 300 mg capsule 300 mg PO BID 4 Days Qty: 8 RF: 0 Plavix 75 mg tablet 75 mg PO DAILY Qty: 21 RF: 0 atorvastatin 40 mg Tablet 40 mg PO BEDTIME Qty: 30 RF: 0 Continued nitroglycerin 0.4 mg tablet, sublingual 0.4 mg SUBLINGUAL Q5M PRN (Reason: chest pain) Qty: 20 RF: 3 lisinopril 40 mg tablet 40 mg PO DAILY RF: 0 tamsulosin 0.4 mg capsule 0.4 mg PO DAILY RF: 0 aspirin 325 mg tablet 325 mg PO DAILY RF: 0 acetaminophen 500 mg tablet 500 mg PO Q4H PRN (Reason: PAIN) RF: 0 furosemide 40 mg tablet 40 mg PO DAILY Qty: 30 RF: 3 potassium chloride 20 mEq tablet extended release 20 meq PO DAILY Qty: 30 RF: 3 Changed Lantus Solostar U-100 Insulin 100 unit/mL (3 mL) insulin pen 10 unit SUBCUT DAILY Qty: 0 RF: 0 Discontinued glipizide 10 mg tablet 10 mg PO BID RF: 0 metoprolol tartrate 50 mg tablet 25 mg PO BID RF: 0 Discharge Orders: Discharge Order (Routine); Ordered 11/06/20 Ordered By: Prateek Katz Referrals: Ines Dooley FNP [Primary Care Provider] - 4-7 days (Please call Monday to schedule a follow up appointment.) Discharge Diet: As Directed Discharge Activity: Increase activity as tolerated and As per PT/OT instructions Patient Instructions: Amlodipine (By mouth), Atorvastatin (By mouth), Clopidogrel (By mouth), Insulin Glargine (Injection), Diabetes Mellitus Type 2 in Adults (GEN), Giving an Insulin Injection (GEN), Self Care Measures After a Stroke (DC) Activity Restrictions/Additional Instructions: Please maintain dysphagia level 2 diet with ground foods. Maintain aspiration precautions. Continue speech therapy at home with home health. Please monitor glucose 3 times daily, target glucose 100-150. Avoid glucose that is low. In case glucose is less than 70, hypoglycemia may be dangerous, please give sugary snacks, and recheck in 15-20 minutes. If still low, call 911. If glucose is increasing, please increase next days insulin dose by no more than 2-3 units, and if glucose is less than 100 at any point during the day, decrease insulin dose by 5-10 units. Please contact your primary provider's office for help with management of diabetes. Please monitor blood pressure 3 times daily, record values to bring to your primary care appointment. Please follow-up with neurology regarding stroke within 1 week. Please note in addition to aspirin you are also started on Plavix for 21 days or as otherwise may be directed by the neurologist. You are also started on a cholesterol medication to help reduce risk of further stroke. Please maintain fall precautions at home. Continue physical therapy as per physical and occupational therapy. Please note that due to slow heart rate your metoprolol is discontinued for now and you are started on amlodipine instead. Please follow-up with your primary care provider to reassess a slow heart rate and to check that it has resolved with discontinuation of metoprolol. Please complete antibiotic course with cefdinir for urinary tract infection. Please note you are also prescribed a course of doxycycline due to recent tick bites and concerning symptoms. Tick panel has been sent out, and is pending, and in case it is negative, you may be contacted to discontinue doxycycline before the course is finished. Please discuss with your primary doctor/[facility] also referral for stress testing due to episode of chest pain you had had prior to stroke and risk factors for coronary artery disease. Please continue your follow-up with cardiology Dr. Burns. Please follow-up with liver specialist as intended regarding liver scarring. Continue follow-up with your blood doctor for low platelet level. Discharge Attestations Time Spent in Discharge Care*: greater than 30 min Quality Metrics Clinical Quality Measures During this hospital stay, did patient experience: Stroke Contraindication to Antithrombotic: Antithrombotic prescribed Contraindication to Anticoagulation: Overlap treatment not indicated Contraindication to Statin: Statin prescribed Coding Level of Care Code Acute Chg FW DC note Diagnoses Cerebrovascular accident I63.9 Sinus bradycardia R00.1 Chest pain R07.9 Hyperbilirubinemia E80.6 Hypertension I10 Diabetes mellitus E11.9 Thrombocytopenia D69.6 Microscopic hematuria R31.29
[2020-11-10 17:03] LABS: RMSF IGG NOT DETECTED; RMSF IGM NOT DETECTED
[2020-11-12 17:28] LABS: E. Chaffeensis AB IGG <1:64; E. Chaffeensis AB IGM <1:20
== END 2020-11-06 18:45 | disposition home health service (06) | DRG 65 ==
LOC: ER 12:16 → MEDSURG 12:52
PROVIDERS: Admitting Provider Internal Medicine; Emergency Provider Family Medicine; PCP Nurse Practitioner; Visit Provider Internal Medicine
DX: I63.9 Cerebral infarction, unspecified (principal); G93.49 Other encephalopathy; R27.0 Ataxia, unspecified; R29.810 Facial weakness; R47.01 Aphasia; R29.705 NIHSS score 5; I25.10 Atherosclerotic heart disease of native coronary artery without angina pectoris; Z95.5 Presence of coronary angioplasty implant and graft; E11.9 Type 2 diabetes mellitus without complications; I11.0 Hypertensive heart disease with heart failure; I50.9 Heart failure, unspecified; E78.5 Hyperlipidemia, unspecified; I25.5 Ischemic cardiomyopathy; D69.6 Thrombocytopenia, unspecified; N40.1 Benign prostatic hyperplasia with lower urinary tract symptoms; G89.29 Other chronic pain; K21.9 Gastro-esophageal reflux disease without esophagitis; Z86.010 Personal history of colon polyps; I25.2 Old myocardial infarction; E66.9 Obesity, unspecified; Z68.32 Body mass index [BMI] 32.0-32.9, adult; Z96.659 Presence of unspecified artificial knee joint; Z87.891 Personal history of nicotine dependence; R00.1 Bradycardia, unspecified; D73.1 Hypersplenism; T14.8XXA Other injury of unspecified body region, initial encounter; W57.XXXA Bitten or stung by nonvenomous insect and other nonvenomous arthropods, initial encounter; M25.512 Pain in left shoulder; R31.29 Other microscopic hematuria; E80.6 Other disorders of bilirubin metabolism; Z86.73 Personal history of transient ischemic attack (TIA), and cerebral infarction without residual deficits
CPT/HCPCS: 36415; 36416; 70450; 70496; 70498; 70553; 71045; 80053; 80306; 81001; 82140; 82248; 82550; 82962; 83010; 83615; 83735; 84443; 84484; 85025; 85610; 85730; 86618; 86666; 86757; 87086; 92507; 92523; 92526; 92610; 93005; 93306; 93880; 96372; 97110; 97116; 97161; 97166; 97530; 99285; A9577; J0696; J1644; J1815 ×2; J3475; J3490; Q9967

== ENCOUNTER 2020-11-29 14:27 | Inpatient (IN) | payer OTHER, MEDICARE, SELFPAY ==
[2020-11-29] VITALS (8 sets, daily range): BP systolic 128–161; BP diastolic 69–92; PULSE 51–84; RESP 16–20; TEMP 36.6; O2SAT 94–98; BMI 28.7
--- NOTE | 2020-11-29 17:13 | XRR_ITS ---
PROCEDURE INFORMATION: Exam: XR Chest Exam date and time: 11/29/2020 5:13 PM Age: 70 years old Clinical indication: Dyspnea; Additional info: Reduced breath sounds TECHNIQUE: Imaging protocol: XR of the chest. Views: 1 view. COMPARISON: CR XR chest 1V portable [id number] 11/04/2020 10:43 AM FINDINGS: Lungs: Bibasilar atelectasis versus minimal infiltrate. Pleural spaces: Small left pleural effusion. Heart/Mediastinum: Cardiomegaly. Bones/joints: Unremarkable. XR/XR chest 1V portable [id number] IMPRESSION: 1. Cardiomegaly. 2. Small left pleural effusion. 3. Bibasilar atelectasis versus minimal infiltrate.
--- NOTE | 2020-11-29 17:13 | CTR_ITS ---
PROCEDURE INFORMATION: Exam: CT Head Without Contrast Exam date and time: 11/29/2020 5:13 PM Age: 70 years old Clinical indication: Malaise or fatigue; Patient HX: General weakness; Additional info: H/o cva/ C/O weakness TECHNIQUE: Imaging protocol: Computed tomography of the head without contrast. Radiation optimization: All CT scans at this facility use at least one of these dose optimization techniques: automated exposure control; mA and/or kV adjustment per patient size (includes targeted exams where dose is matched to clinical indication); or iterative reconstruction. COMPARISON: MR head wo/w con [id number] 11/06/2020 12:47 PM RADIATION DOSE METRICS: Total DLP (mGy-cm): 1051.41 FINDINGS: Brain: Mild diffuse white matter disease likely reflecting chronic microvascular ischemic changes. Cerebral ventricles: No ventriculomegaly. Paranasal sinuses: Visualized sinuses are unremarkable. No fluid levels. Mastoid air cells: Visualized mastoid air cells are well aerated. Bones/joints: Unremarkable. No acute fracture. Soft tissues: Unremarkable. CT/CT head wo con* [id number] IMPRESSION: Negative for intracranial hemorrhage or mass effect. Radiation Dose CTDIVOL = (mGy): DLP = 1051.41 (mGy-cm)
--- NOTE | 2020-11-29 17:18 | ECG_ITS ---
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1950 Requested By: Mati Berkowitz Order Number: [id number] Reading MD: BENJY SARAH Measurements Intervals [place] Rate: 81 P: 16 [place]: 223 QRS: 125 QRSD: 172 T: -1 QT: 444 QTc: 516 Interpretive Statements SINUS RHYTHM WITH FIRST DEGREE AV BLOCK WITH OCCASIONAL VENTRICULAR PREMATURE COMPLEXES RIGHT BUNDLE BRANCH BLOCK [120+ ms QRS DURATION, UPRIGHT V1, 40+ ms S IN I/aVL/V4/V5/V6] LEFT POSTERIOR FASCICULAR BLOCK [QRS AXIS > 109, INFERIOR Q] Compared to ECG 11/04/2020 17:21:34 Ventricular premature complex(es) now present Left posterior fascicular block now present Sinus bradycardia no longer present Left-axis deviation no longer present Electronically Signed On 11-30-2020 18:49:57 CDT by BNEJY SARAH [id number]
[2020-11-29 17:48] LABS: Basophils % 0.2 %; Eosinophils % 0.4 %; Hematocrit 53.4 % (42.0-52.0); Hemoglobin 18.7 g/dL (11.7-16.6); Lymphocytes # 2.2 10^3/uL (0.8-4.8); Lymphocytes % 21.2 %; Mean Corpuscular Hemoglobin 31.4 pg (28.0-34.0); Mean Corpuscular Volume 89.7 fL (80-94); Mean Platelet Volume 12.3 fL (7.4-10.4); Monocytes # 0.5 10^3/uL (0.2-0.9); Monocytes % 4.7 %; Neutrophils # 7.55 10^3/uL (1.8-7.7); Neutrophils % 72.7 %; Nucleated Red Blood Cells % 0 %; Platelet Count 101 10^3/cmm (130-400); Red Blood Count 5.95 10^6/uL (4.1-5.3); Red Cell Distribution Width 14.4 % (12.1-15.1); White Blood Count 10.4 10^3/uL (4.0-10.0)
[2020-11-29] MEDS: sodium chloride 0.9% 1,000 ML 999 ML IV ×2 (17:59→20:47)
[2020-11-29 18:10] LABS: Troponin(5th) Baseline 23 ng/L (0-15)
[2020-11-29 18:11] LABS: Lactate (Lactic Acid level) 2.1 mmol/L (0.5-2.2)
[2020-11-29 18:12] LABS: Alanine Aminotransferase 20 U/L (0-41); Albumin Level 4.1 g/dL (3.5-5.2); Alkaline Phosphatase 145 IU/L (40-130); Aspartate Amino Transferase 20 U/L (0-40); Blood Urea Nitrogen 30 mg/dL (8-23); Calcium 9.6 mg/dL (8.5-10.5); Carbon Dioxide 26 mmol/L (22-29); Chloride 107 mmol/L (98-107); Globulin 4.2 g/dL (1.3-4.6); Glucose 222 mg/dL (65-115); Osmolality Calculated 317 mOsm/kg (285-295); Sodium 147 mmol/L (136-145); Total Bilirubin 3.9 mg/dL (0.15-1.2); Total Protein 8.3 g/dL (6.6-8.7)
[2020-11-29 18:13] LABS: Glucose Urine UA Norm (Normal); Ketones Urine 1+ (Negative); Protein Urine 1+ (Negative); Specific Gravity, Urine 1.025 (1.005-1.030); Urine Appearance Clear (CLEAR); Urine Color Amber (Yellow); pH Urine 5 (5-7)
[2020-11-29 18:14] LABS: Add Urine Microscopic? YES; Amorphous Sediment Urine 1+ /hpf; Bacteria Urine TRACE /hpf; Bilirubin Urine 1+ (Negative); Blood Urine 3+ (Negative); Leukocyte Esterase Urine Negative (Negative); Nitrate Urine Negative (Negative); RBC Urine 0-4 /hpf (0-2); Squamous Epithelial Cell Urine 0-4 /hpf (0-5); Urobilinogen Urine 4 mg/dL (Negative); WBC Urine 0-4 /hpf (0-5)
--- NOTE | 2020-11-29 18:34 | CTR_ITS ---
PROCEDURE INFORMATION: Exam: CTA Angiogram of the Abdominal Aorta and Bilateral Lower Extremities (Run-off) With IV Contrast Exam date and time: 11/29/2020 6:34 PM Age: 70 years old Clinical indication: Discoloration or erythema; Right; Prior surgery; Surgery date: 6+ months; Surgery type: B tka, appy, hernia; Patient HX: R 4-5 blue toes - diabetic w recent CVA; Additional info: Right blue toes. TECHNIQUE: Imaging protocol: CT angiogram of the abdominal aorta, pelvis and bilateral lower extremities with IV iodinated contrast. 3D rendering (Not supervised by radiologist): MIP and/or 3D reconstructed images were created by the technologist. Radiation optimization: All CT scans at this facility use at least one of these dose optimization techniques: automated exposure control; mA and/or kV adjustment per patient size (includes targeted exams where dose is matched to clinical indication); or iterative reconstruction. Contrast material: OMNI 350; Contrast volume: 95 ml; Contrast route: INTRAVENOUS (IV); COMPARISON: CT abdomen pelvis w con* [id number] 08/17/2020 1:05 PM RADIATION DOSE METRICS: Total DLP (mGy-cm): 2046. FINDINGS: Aorta: No aortic aneurysm. No aortic dissection. Mild atherosclerotic calcifications. Celiac trunk and mesenteric arteries: No occlusion or significant stenosis. Renal arteries: No occlusion or significant stenosis. Right iliac arteries: No occlusion or significant stenosis. Right femoral/popliteal arteries: There is gradual decrease in contrast opacification of the bilateral superficial femoral arteries in the thighs at the same level with no contrast in the distal superficial femoral arteries, popliteal arteries or bilateral lower extremities. Right infrapopliteal arteries: No contrast distal to the mid right superficial femoral artery. Diffuse moderate atherosclerotic calcifications are noted. Left iliac arteries: No occlusion or significant stenosis. Left femoral/popliteal arteries: There is gradual decrease in contrast opacification of the bilateral superficial femoral arteries in the thighs at the same level with no contrast in the distal superficial femoral arteries, popliteal arteries or bilateral lower extremities Left infrapopliteal arteries: No contrast distal to the mid left superficial femoral artery. Diffuse moderate atherosclerotic calcifications are noted. Lungs: Patchy left basilar airspace opacity is noted compatible with probable pneumonic infiltrate. There is subpleural atelectasis of the dependent portions of the lungs. Mediastinum: A small hiatal hernia is present. Liver: The liver has a nodular contour and there is relative hypertrophy of the caudate lobe, consistent with cirrhosis. Gallbladder and bile ducts: Multiple calcified gallstones are present. There is no wall thickening or pericholecystic fluid to suggest cholecystitis. Pancreas: Unremarkable. No mass. No ductal dilation. Spleen: There is splenomegaly. Accessory splenule is are present. Adrenals: Normal. No mass. Kidneys and ureters: There is no evidence of hydronephrosis. There is a 2.3 cm simple cyst midpole right kidney. Stomach and bowel: Moderate diverticulosis is present in the distal colon. The wall of the transverse and distal descending and sigmoid colon is thickened but collapsed. This appearance may reflect lack of distention however mild colitis cannot be excluded. Appendix: The appendix is not definitively identified. Bladder: There is nonspecific bladder wall thickening. This may be related to incomplete distention. Reproductive: The prostate demonstrates marked nonspecific enlargement. The seminal vesicles are normal. The prostate demonstrates nonspecific parenchymal calcifications. Intraperitoneal space: There are varicosities in the upper abdomen. However, there is no CT evidence of a right lower quadrant inflammatory process. Lymph nodes: There is a 1.6 cm short axis lymph node along the gastrohepatic ligament. There is no retroperitoneal or pelvic adenopathy. Bones/joints: There are moderate degenerative changes in the spine and bilateral lower extremities. Soft tissues: There is an unchanged fat containing midline ventral hernia upper abdomen. Postoperative changes of a ventral hernia repair mid abdomen with mesh is noted unchanged small bilateral fat filled inguinal hernias are noted. Other findings: There are bilateral total knee arthroplasties. CT/CT angio abd aorta runof [id number] IMPRESSION: 1. There is gradual decrease in contrast opacification of the bilateral superficial femoral arteries in the thighs at the same level with no contrast in the distal superficial femoral arteries, popliteal arteries or bilateral lower extremities. It is uncertain if this is due to markedly decreased/diminished blood flow due to heart failure or due to the timing of this exam. 2. Patchy left basilar airspace opacity is noted compatible with probable pneumonic infiltrate. 3. The wall of the transverse and distal descending and sigmoid colon is thickened but collapsed. This appearance may reflect lack of distention however mild colitis cannot be excluded. Radiation Dose CTDIVOL = (mGy): DLP = 2047.17 (mGy-cm)
--- NOTE | 2020-11-29 19:18 | ECG_ITS ---
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1950 Requested By: Mati Berkowitz Order Number: [id number] Nikia MD: BENJY SARAH Measurements Intervals [place] Rate: 78 P: 30 [place]: 224 QRS: -52 QRSD: 169 T: 18 QT: 443 QTc: 505 Interpretive Statements SINUS RHYTHM WITH FIRST DEGREE AV BLOCK RIGHT BUNDLE BRANCH BLOCK [120+ ms QRS DURATION, UPRIGHT V1, 40+ ms S IN I/aVL/V4/V5/V6] LEFT ANTERIOR FASCICULAR BLOCK [QRS AXIS <= -45, QR IN I, RS IN II] LEFT VENTRICULAR HYPERTROPHY AND ST-T CHANGE [VOLTAGE CRITERIA PLUS ST/T ABNORMALITY] Compared to ECG 11/29/2020 18:07:54 Left anterior fascicular block now present Left ventricular hypertrophy now present ST (T wave) deviation now present Ventricular premature complex(es) no longer present Left posterior fascicular block no longer present Electronically Signed On 11-30-2020 18:54:31 CDT by BENJY SARAH [id number]
[2020-11-29] MEDS: iohexol 350 mg/mL 100 mL Btl IV (19:20)
[2020-11-29 21:07] LABS: Troponin 5 2HR 19.54 ng/L (0-15)
[2020-11-29 21:09] LABS: Troponin 5 2HR Delta -3.46 ABS# (0-10)
--- NOTE | 2020-11-29 22:22 | PM.HP ---
Providers/Chief Complaint Primary Care Provider: ALVARO Hurst Chief Complaint: DARK PURPLE FEET History of Present Illness Galen Macdonald is a 70 year old male who has multiple comorbid conditions was recently diagnosed with acute left putamen infarct 3 weeks ago with right-sided residual weakness and dysphagia presented today with chief complaint of dehydration and yellow discoloration of eyes. is at the bedside who is endorsing that for last 3 to 4 days he has not been able to eat much he tries to eat mechanically soft diet but today asked for a burger which she was not able to eat. No recent chest pain, shortness of breath, dysuria diarrhea, fever or joint pains. He has gotten extremely weak and dehydrated. also noticed bluish discoloration of right fourth and fifth toes and that is why she brought him to the hospital today. Diagnosis in the ER revealed dehydration signs with hypernatremia Free water deficit 2.6 L, jaundice, bilirubin worsening, thrombocytopenia however polycythemia evident on CBC Chest x-ray shows small left pleural effusion CT/CT angio abd aorta runof [id number] IMPRESSION: 1. There is gradual decrease in contrast opacification of the bilateral superficial femoral arteries in the thighs at the same level with no contrast in the distal superficial femoral arteries, popliteal arteries or bilateral lower extremities. It is uncertain if this is due to markedly decreased/diminished blood flow due to heart failure or due to the timing of this exam. 2. Patchy left basilar airspace opacity is noted compatible with probable pneumonic infiltrate. 3. The wall of the transverse and distal descending and sigmoid colon is thickened but collapsed. This appearance may reflect lack of distention however mild colitis cannot be excluded. Review of Systems Const: Reports: body aches, change in appetite, change in weight and fatigue Eyes: Reports: yellow eyes; Denies: change in vision ENMT: Denies: throat pain Card: Denies: chest pain Resp: Denies: dyspnea GI: Denies: abdominal pain : Denies: flank pain Musc: Reports: muscle cramps Skin/Breast: Reports: skin swelling, new lesions and changes in skin color; Denies: rash Neuro: Reports: weakness in extremities; Denies: headache(s) Psych: Reports: depression Endo: Denies: polyuria Mao/Lymph: Denies: easy bruising All/Imm: Denies: urticaria Medications/Allergies Home Medications Medication Instructions Recorded Confirmed Last Taken Type acetaminophen 500 mg tablet 500 mg PO Q4H PRN 06/10/19 11/29/20 06/20/19 History aspirin 325 mg tablet 325 mg PO DAILY tab 06/10/19 11/29/20 11/28/20 History lisinopril 40 mg tablet 40 mg PO DAILY 06/10/19 11/29/20 06/24/19 History tamsulosin 0.4 mg capsule 0.4 mg PO DAILY 06/10/19 11/29/20 06/23/19 History nitroglycerin 0.4 mg sublingual 0.4 mg SUBLINGUAL Q5M PRN #20 tab 08/05/19 11/29/20 Unknown Rx tablet furosemide 40 mg tablet 40 mg PO DAILY #30 tab 08/08/19 11/29/20 11/28/20 Rx potassium chloride 20 mEq 20 meq PO DAILY #30 tab 08/08/19 11/29/20 Unknown Rx tablet,extended release amlodipine 5 mg PO DAILY #30 tab 11/06/20 11/29/20 11/28/20 Rx atorvastatin 40 mg PO BEDTIME #30 tab 11/06/20 11/29/20 11/28/20 Rx clopidogrel [Plavix] 75 mg PO DAILY #21 tab 11/06/20 11/29/20 11/28/20 Rx Lantus Solostar U-100 Insulin 20 unit SUBCUT DAILY 11/29/20 11/29/20 11/29/20 History Allergies Allergy/AdvReac Type Severity Reaction Status Date / Time Penicillins AdvReac ADR-Cramping Verified 05/19/20 15:38 of the Muscles PFSH Acute PFSH: Medical History Benign prostatic hyperplasia with lower urinary tract symptoms CAD (coronary artery disease) Chest pain Chronic pain Diabetes mellitus GERD (gastroesophageal reflux disease) H/O adenomatous polyp of colon Hyperlipidemia Hypertension Ischemic cardiomyopathy Myocardial infarction Obesity Status post replacement of knee joint Surgical History Hx of appendectomy Hx of hernia repair Hx of knee surgery Post PTCA Family History Mother Cancer Denies family history of Diabetes CAD (coronary artery disease) Clotting disorder Dementia Hyperlipidemia Psychiatric illness Chronic kidney disease (CKD) Suicide Anesthesia complication Bleeding disorder Family history of premature coronary artery disease Lung disease Hypertension Stroke Social History Smoking and tobacco status: former smoker Alcohol intake: former Lives independently: Yes Household members: spouse Marital status: Current occupational status: retired Vitals/I&O/Wt Last Vital Signs Pulse 68 11/29/20 18:00 Resp 18 11/29/20 18:00 BP 144/76 11/29/20 18:00 Pulse Ox 95 11/29/20 18:00 11/29/20 11/29/20 11/29/20 06:59 14:59 22:59 Intake Total 1000 / 1000 Balance 1000 / 1000 Weight last 48 hrs Weight 104.326 kg Physical Exam Narrative: EXAM NARRATIVE: Pleasant cooperative elderly male was laying supine in his bed without any active discomfort Scleral icterus He has right-sided residual weakness EOMI, PERRLA Dry mucous membranes, Clinically looks dehydrated S1, S2, sinus rhythm Abdomen with visceral obesity nontender no signs of peritonitis soft Lower extremity right fourth and fifth toe discoloration with bluish tinge around distal phalanx however unable to feel dorsalis pedis pulses 1+ bilaterally no active signs of ischemic ulcers, no active signs of cellulitis or joint pains No signs of hepatic encephalopathy No joint pain Lethargic and fatigued Data : 11/29/20 17:40 11/29/20 17:40 A&P Assessment and plan (1) Dehydration: Status: Acute (2) Thrombocytopenia: Status: Acute (3) Hyperbilirubinemia: Status: Acute Additional A&P Information Dehydration secondary to dysphagia Anorexia Free water deficit 2.6 L We will keep him on normal saline at 75 mL/h received fluid resuscitation in the ER Systolic blood pressure 150 mmHg, heart rate fluctuating between 50 to 66 bpm no active shortness of breath chest pain or confusion No active vomiting or diarrhea is endorsing that he just has lost his appetite which further complicates his dietary intake as he is already on mechanically soft diet however speech evaluation has not been done since his stroke which I would request in the morning Thrombocytopenia with hyperbilirubinemia Please note he had a recent CVA/infarct, likely secondary to portal hypertension thrombocytopenia and high bilirubin I would keep tick related illness and TTP in my differentials as well, he does not need active plasmapheresis or steroids at this point, however he does not have known anemia or uremia which would go against TTP is stating that he is due to see a track inspecting supervisor for his chronically elevated bilirubin, no previous diagnosis of Gilbert syndrome, will request bilirubin panel along hepatitis panel, he does not have significant aortic stenosis 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 hepatic cirrhosis with splenomegaly and portal hypertension Left inguinal hernia however abdominal exam is benign Recent acute infarct of putamen He has finished 3 weeks on dual antibiotic therapy I would only continue aspirin for now along statins Right-sided residual weakness with dysphagia Full code Mechanical soft diet, will request speech evaluation in the morning DVT prophylaxis Lovenox would discontinue if platelet count below 100,000 Attestations Medical Necessity Statement*: Anticipating discharge within 48 hours overnight monitoring and fluid resuscitation needed because of free water deficit of 2.6 L Time Spent in Patient Care: 35mins Coding Level of Care Code Acute Machine Cementer for Chg Fwd Diagnoses Dehydration E86.0 Thrombocytopenia D69.6 Hyperbilirubinemia E80.6
--- NOTE | 2020-11-29 22:24 | PM.HP ---
Providers/Chief Complaint Primary Care Provider: ALVARO Hurst Chief Complaint: DARK PURPLE FEET History of Present Illness Galen Macdonald is a 70 year old male Medications/Allergies Home Medications Medication Instructions Recorded Confirmed Last Taken Type acetaminophen 500 mg tablet 500 mg PO Q4H PRN 06/10/19 11/29/20 06/20/19 History aspirin 325 mg tablet 325 mg PO DAILY tab 06/10/19 11/29/20 11/28/20 History lisinopril 40 mg tablet 40 mg PO DAILY 06/10/19 11/29/20 06/24/19 History tamsulosin 0.4 mg capsule 0.4 mg PO DAILY 06/10/19 11/29/20 06/23/19 History nitroglycerin 0.4 mg sublingual 0.4 mg SUBLINGUAL Q5M PRN #20 tab 08/05/19 11/29/20 Unknown Rx tablet furosemide 40 mg tablet 40 mg PO DAILY #30 tab 08/08/19 11/29/20 11/28/20 Rx potassium chloride 20 mEq 20 meq PO DAILY #30 tab 08/08/19 11/29/20 Unknown Rx tablet,extended release amlodipine 5 mg PO DAILY #30 tab 11/06/20 11/29/20 11/28/20 Rx atorvastatin 40 mg PO BEDTIME #30 tab 11/06/20 11/29/20 11/28/20 Rx clopidogrel [Plavix] 75 mg PO DAILY #21 tab 11/06/20 11/29/20 11/28/20 Rx Lantus Solostar U-100 Insulin 20 unit SUBCUT DAILY 11/29/20 11/29/20 11/29/20 History Allergies Allergy/AdvReac Type Severity Reaction Status Date / Time Penicillins AdvReac ADR-Cramping Verified 05/19/20 15:38 of the Muscles PFSH Acute PFSH: Medical History Benign prostatic hyperplasia with lower urinary tract symptoms CAD (coronary artery disease) Chest pain Chronic pain Diabetes mellitus GERD (gastroesophageal reflux disease) H/O adenomatous polyp of colon Hyperlipidemia Hypertension Ischemic cardiomyopathy Myocardial infarction Obesity Status post replacement of knee joint Surgical History Hx of appendectomy Hx of hernia repair Hx of knee surgery Post PTCA Family History Mother Cancer Denies family history of Diabetes CAD (coronary artery disease) Clotting disorder Dementia Hyperlipidemia Psychiatric illness Chronic kidney disease (CKD) Suicide Anesthesia complication Bleeding disorder Family history of premature coronary artery disease Lung disease Hypertension Stroke Social History Smoking and tobacco status: former smoker Alcohol intake: former Lives independently: Yes Household members: spouse Marital status: Current occupational status: retired Vitals/I&O/Wt Last Vital Signs Pulse 68 11/29/20 18:00 Resp 18 11/29/20 18:00 BP 144/76 11/29/20 18:00 Pulse Ox 95 11/29/20 18:00 11/29/20 11/29/20 11/29/20 06:59 14:59 22:59 Intake Total 1000 / 1000 Balance 1000 / 1000 Weight last 48 hrs Weight 104.326 kg Data : 11/29/20 17:40 11/29/20 17:40 Coding Level of Care Code Acute Hop Sorter for Maicol Douglas
--- NOTE | 2020-11-29 22:37 | ED_ITS ---
HPI - General Adult General: Chief complaint: General Medical Stated complaint: DARK PURPLE FEET Time Seen by Provider: 11/29/20 17:05 History of Present Illness: HPI narrative: The patient is a 70-year-old male with past medical history stroke a couple months ago with severe right-sided weakness and difficulty swallowing as well as residual right-sided facial droop comes to the ER complaining that he is dehydrated. His says that he does not eat and drink because whenever he eats and drinks he coughs because of his swallowing difficulty and it bothers him. He gets frustrated. She also says over the past week or so he has 3 toes on his right foot which are dark purple in color and she wonders if they are bruised though he has not fallen or hurt them. She has noticed he has cold feet. Onset (ago): week(s) (1) Location: right and lower extremity Severity: moderate Associated symptoms: Deny chest pain, confusion, dyspnea, headache(s), rash or palpitations Review of Systems General: Reports: 10 or more systems reviewed and unremarkable except in HPI and below Const: Reports: fatigue; Denies: fever(s) Eyes: Denies: change in vision, blurry vision or eye redness ENMT: Denies: throat pain, swelling of lips/tongue, ear or mastoid pain or nasal congestion Card: Denies: chest pain, palpitations, irregular heart rhythm, edema, dyspnea on exertion or orthopnea Resp: Denies: dyspnea, productive cough or non-productive cough GI: Denies: abdominal pain, diarrhea or GI cramping : Denies: flank pain, urinary frequency or urinary urgency Musc: Denies: neck pain, back pain, extremity pain, joint pain, joint redness, limited range of motion or muscle weakness Skin/Breast: Reports: other (dark purple toes on right foot, 3 of them.); Denies: rash, pruritus, erythema, skin pain or skin tenderness Neuro: Denies: headache(s), numbness in extremities, weakness in extremities, sensory changes, difficulty walking, dizziness, confusion or Slurred speech present Psych: Denies: anxiety or depression Endo: Denies: polyuria All/Imm: Denies: urticaria, throat swelling or tongue swelling PFSH ED PFSH: Medical History Benign prostatic hyperplasia with lower urinary tract symptoms CAD (coronary artery disease) Chest pain Chronic pain Diabetes mellitus GERD (gastroesophageal reflux disease) H/O adenomatous polyp of colon Hyperlipidemia Hypertension Ischemic cardiomyopathy Myocardial infarction Obesity Status post replacement of knee joint Surgical History Hx of appendectomy Hx of hernia repair Hx of knee surgery Post PTCA Family History Mother Cancer Denies family history of Diabetes CAD (coronary artery disease) Clotting disorder Dementia Hyperlipidemia Psychiatric illness Chronic kidney disease (CKD) Suicide Anesthesia complication Bleeding disorder Family history of premature coronary artery disease Lung disease Hypertension Stroke Social History Smoking and tobacco status: former smoker Alcohol intake: former Lives independently: Yes Household members: spouse Marital status: Current occupational status: retired Physical Exam Const: COMMON NORMALS: no acute distress, average body habitus, patient oriented x3, alert and well nourished GENERAL APPEARANCE: cooperative, well kempt and well developed ORIENTATION/CONSCIOUSNESS: Yes awake, Yes oriented to person, Yes oriented to place and Yes oriented to time OTHER: Chronic right facial droop and severe weakness to right upper and lower extremity. Dark purple coloration to the tips of 3 toes on his right foot. Cap refill several seconds in those toes. HENMT: COMMON NORMALS: normocephalic, external ears normal and Normal external nose present HEAD & SCALP: normal to inspection and normocephalic NOSE: Normal external nose present EXTERNAL EAR: Yes external ears normal MOUTH: Normal oral and palatal mucosa present THROAT: posterior oropharynx normal Eye: COMMON NORMALS: Equal, round and reactive pupils present and EOMs intact bilaterally GENERAL EYE: appearance normal, both eyes and all related structures PUPIL: Yes Equal, round and reactive pupils present Neck/C-Spine: COMMON NORMALS: full ROM, no lymphadenopathy, no meningeal signs and no JVD GENERAL: Yes normal visual inspection Lymph: LYMPHATIC: no lymphadenopathy noted Chest: COMMONS NORMALS: normal inspection of the chest and normal palpation of entire chest wall Resp: COMMON NORMALS: normal respiratory effort, No retractions, No use of accessory muscles, clear to auscultation bilaterally and percussion normal EFFORT & INSPECTION: Yes able to speak in complete sentences AUSCULTATION: clear to auscultation bilaterally PERCUSSION: percussion normal Cardio: COMMON NORMALS: no JVD, regular rate, regular rhythm, S1 normal heart sound present, S2 normal heart sound present and Peripheral pulses 2+ throughout RATE: regular rate RHYTHM: regular rhythm HEART SOUNDS: S1 normal heart sound present and S2 normal heart sound present PERIPHERAL PULSES: Peripheral pulses 2+ throughout GI: COMMON NORMALS: Normal to inspection, nondistended, normoactive bowel sounds present, Soft to palpation, non-tender and no masses INSPECTION: Yes normal to inspection PALPATION: Yes Soft to palpation : COMMON NORMALS: Yes no CVA tenderness BLADDER/KIDNEY EXAM: Yes no CVA tenderness Back/Pelvis: COMMON NORMALS: no CVA tenderness, thoracic and lumbar spine normal to inspection, no thoracic nor lumbar tenderness and thoraco-lumbar ROM normal Extremity: COMMON NORMALS: normal to inspection, full ROM, capillary refill normal, no joint enlargement and no pedal edema GENERAL: Yes normal exam except as noted Neuro: COMMON NORMALS: patient oriented x3, CN's II-XII intact bilaterally, moves all extremities and no sensory deficits noted SENSORIUM/ORIENTATION: Yes alert, Yes oriented to person, Yes oriented to place and Yes oriented to time MENINGEAL SIGNS: Yes no meningeal signs OTHER: Chronic weakness in the right face, right upper and lower extremities from recent stroke 2 months ago. Psych: COMMON NORMALS: mental status grossly normal, Normal thought process present, cooperative, normal affect and speech normal APPEARANCE: Yes well kempt ATTITUDE: Yes calm SPEECH: Yes normal speech THOUGHT PROCESS: Normal thought process present Skin: COMMON NORMALS: no rashes or lesions noted GENERAL SKIN EXAM: no rashes or lesions noted Course Vital Signs: Vital signs: Vital Signs Pulse Rate 68 11/29/20 18:00 Respiratory Rate 18 11/29/20 18:00 Blood Pressure 144/76 11/29/20 18:00 Pulse Oximetry 95 11/29/20 18:00 MDM - General Adult MDM Narrative: Medical decision making narrative: Patient came to the ER complaining of dark purple color to a few of his toes on the right foot. He does have cap refill of several seconds and pulses are dopplerable in both feet DP and PT however they are weak. His feet are cold. CTA with aortic runoff shows the contrast did not reach either leg. Likely poor timing of the contrast bolus. Also his bilirubin is 3.9. Unknown cause with mild elevation of ALP as well. He was given 2 L IV fluids as he is obviously dehydrated related to his swallowing difficulty with his residual weakness from his stroke. Also on the monitor his heart rate has ranged from 40 to 60s. His rhythm is quite irregular and has PVCs, junctional rhythm, irregularly irregular rhythm, and sinus bradycardia. Discussed with Dr. De Anda who accepts for observation. Lab Data: Labs: Lab Results 11/29/20 11/29/20 11/29/20 Range/Units 17:40 17:40 17:40 WBC 10.4 H (4.0-10.0) 10^3/ uL RBC 5.95 H (4.1-5.3) 10^6/u L Hgb 18.7 H (11.7-16.6) g/dL Hct 53.4 H (42.0-52.0) % MCV 89.7 (80-94) fL MCH 31.4 (28.0-34.0) pg MCHC 35.0 (30.0-36.0) g/dL RDW 14.4 (12.1-15.1) % Plt Count 101 L (130-400) 10^3/c mm MPV 12.3 H (7.4-10.4) fL Neut % (Auto) 72.7 % Lymph % (Auto) 21.2 % [place] % (Auto) 4.7 % Eos % (Auto) 0.4 % Baso % (Auto) 0.2 % Neut # (Auto) 7.55 (1.8-7.7) 10^3/u L Lymph # (Auto) 2.2 (0.8-4.8) 10^3/u L [place] # (Auto) 0.5 (0.2-0.9) 10^3/u L Eos # (Auto) 0.0 (0.0-0.8) 10^3/u L Baso # (Auto) 0.0 (0.0-0.1) 10^3/u L Nucleated RBC % (a uto) 0 % Nucleated RBCs # 0.0 /100WBC Sodium 147 H (136-145) mmol/L Potassium 4.0 (3.5-5.1) mmol/L Chloride 107 (98-107) mmol/L Carbon Dioxide 26 (22-29) mmol/L Anion Gap 18.0 (5-19) BUN 30 H (8-23) mg/dL Creatinine 1.2 (0.7-1.2) mg/dL GFR Calculation Not Reportable Glucose 222 H (65-115) mg/dL Calculated Osmolal ity 317 H (285-295) mOsm/k g Lactate 2.1 (0.5-2.2) mmol/L Calcium 9.6 (8.5-10.5) mg/dL Total Bilirubin 3.9 H (0.15-1.2) mg/dL AST 20 (0-40) U/L ALT 20 (0-41) U/L Alkaline Phosphata se 145 H (40-130) IU/L Troponin T Baselin e (0-15) ng/L Troponin T 120 Min [place] (0-15) ng/L Delta Troponin T (0-10) ABS# Total Protein 8.3 (6.6-8.7) g/dL Albumin 4.1 (3.5-5.2) g/dL Globulin 4.2 (1.3-4.6) g/dL Urine Color (Yellow) Urine Appearance (CLEAR) Urine pH (5-7) Ur Specific Gravit y (1.005-1.030) Urine Protein (Negative) Urine Glucose (UA) (Normal) Urine Ketones (Negative) Urine Blood (Negative) Urine Nitrate (Negative) Urine Bilirubin (Negative) Urine Urobilinogen (Negative) mg/dL Ur Leukocyte Luci ase (Negative) Urine RBC (0-2) /hpf Urine WBC (0-5) /hpf Ur Squamous Epith Cells (0-5) /hpf Amorphous Sediment /hpf Urine Bacteria (NONE) /hpf 11/29/20 11/29/20 11/29/20 Range/Units 17:40 18:00 20:43 WBC (4.0-10.0) 10^3/ uL RBC (4.1-5.3) 10^6/u L Hgb (11.7-16.6) g/dL Hct (42.0-52.0) % MCV (80-94) fL MCH (28.0-34.0) pg MCHC (30.0-36.0) g/dL RDW (12.1-15.1) % Plt Count (130-400) 10^3/c mm MPV (7.4-10.4) fL Neut % (Auto) % Lymph % (Auto) % [place] % (Auto) % Eos % (Auto) % Baso % (Auto) % Neut # (Auto) (1.8-7.7) 10^3/u L Lymph # (Auto) (0.8-4.8) 10^3/u L [place] # (Auto) (0.2-0.9) 10^3/u L Eos # (Auto) (0.0-0.8) 10^3/u L Baso # (Auto) (0.0-0.1) 10^3/u L Nucleated RBC % (a uto) % Nucleated RBCs # /100WBC Sodium (136-145) mmol/L Potassium (3.5-5.1) mmol/L Chloride (98-107) mmol/L Carbon Dioxide (22-29) mmol/L Anion Gap (5-19) BUN (8-23) mg/dL Creatinine (0.7-1.2) mg/dL GFR Calculation Glucose (65-115) mg/dL Calculated Osmolal ity (285-295) mOsm/k g Lactate (0.5-2.2) mmol/L Calcium (8.5-10.5) mg/dL Total Bilirubin (0.15-1.2) mg/dL AST (0-40) U/L ALT (0-41) U/L Alkaline Phosphata se (40-130) IU/L Troponin T Baselin e 23 H (0-15) ng/L Troponin T 120 Min [place] 19.54 H (0-15) ng/L Delta Troponin T -3.46 L (0-10) ABS# Total Protein (6.6-8.7) g/dL Albumin (3.5-5.2) g/dL Globulin (1.3-4.6) g/dL Urine Color [place] (Yellow) Urine Appearance Clear (CLEAR) Urine pH 5 (5-7) Ur Specific Gravit y 1.025 (1.005-1.030) Urine Protein 1+ H (Negative) Urine Glucose (UA) Norm (Normal) Urine Ketones 1+ H (Negative) Urine Blood 3+ H (Negative) Urine Nitrate Negative (Negative) Urine Bilirubin 1+ H (Negative) Urine Urobilinogen 4 H (Negative) mg/dL Ur Leukocyte Luci ase Negative (Negative) Urine RBC 0-4 H (0-2) /hpf Urine WBC 0-4 H (0-5) /hpf Ur Squamous Epith Cells 0-4 H (0-5) /hpf Amorphous Sediment 1+ /hpf Urine Bacteria Trace (NONE) /hpf Discharge Plan Discharge Admit Provider: Simone De Anda Clinical Impression: Dehydration, Elevated bilirubin, Arrhythmia, Extremity ischemia Condition: Stable Coding Level of Care Code ED Form Grader Operator for Maicol Douglas
[2020-11-30] VITALS (7 sets, daily range): BP systolic 128–161; BP diastolic 60–89; PULSE 51–91; RESP 16–18; TEMP 36.1–36.8; O2SAT 93–97
--- NOTE | 2020-11-30 00:26 | USCV_ITS ---
Macdonald Galen Age: 70 Gender: M : 1950 Exam Date: 11/30/2020 08:12 Ordering Phys: Simone De Anda MD Technologist: Mickie Anderson Exam Location: [facility] [place] Indication: BLUE TOES RIGHT LEFT Brachial 143.00 mmHg Brachial 143.00 mmHg Pressure (mmHg) Waveform Pressure (mmHg) Waveform 95.00 Pre-Exercise Toe Pressure 113.00 0.64 Pre-Exercise Toe/Brachial Index 0.76 FINDINGS BILATERAL LOWER EXTREMITIES >220 Noncompressible vessels bilaterally. Slightly diminished resting TBI on the right side Normal resting TBI on the left side CONCLUSIONS Features of mild peripheral artery disease on the right side No significant arterial obstruction on the left side Noncompressible vessels bilaterally at the ankle Dr Niharika Garcia MD [facility] (Electronically Signed) Final Date: 01 December 2020 08:34 S
[2020-11-30] MEDS: enoxaparin 40 mg/0.4 mL Syringe SUBCUT (00:43)
[2020-11-30] MEDS: sodium chloride 0.9% 1,000 ML 75 ML IV ×2 (00:43→11:02)
[2020-11-30 06:33] LABS: Glucose Point of Care 183 mg/dL (70-110)
[2020-11-30 07:06] LABS: Basophils % 0.1 %; Eosinophils # 0.1 10^3/uL (0.0-0.8); Hematocrit 44.8 % (42.0-52.0); Hemoglobin 15.2 g/dL (11.7-16.6); Lymphocytes % 24.2 %; Mean Corpuscular HGB Conc 33.9 g/dL (30.0-36.0); Mean Corpuscular Hemoglobin 30.8 pg (28.0-34.0); Mean Corpuscular Volume 90.7 fL (80-94); Mean Platelet Volume 12.7 fL (7.4-10.4); Monocytes # 0.5 10^3/uL (0.2-0.9); Monocytes % 6.1 %; Neutrophils % 67.9 %; Nucleated Red Blood Cells % 0 %; Platelet Count 64 10^3/cmm (130-400); Red Blood Count 4.94 10^6/uL (4.1-5.3); Red Cell Distribution Width 14.1 % (12.1-15.1); White Blood Count 8.3 10^3/uL (4.0-10.0)
--- NOTE | 2020-11-30 07:14 | PC.NURSE ---
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
[2020-11-30 07:26] LABS: Anion Gap 13.8 (5-19); Blood Urea Nitrogen 26 mg/dL (8-23); Calcium 8.3 mg/dL (8.5-10.5); Carbon Dioxide 25 mmol/L (22-29); Chloride 112 mmol/L (98-107); Glucose 147 mg/dL (65-115); Osmolality Calculated 311 mOsm/kg (285-295); Potassium 3.8 mmol/L (3.5-5.1); Sodium 147 mmol/L (136-145)
[2020-11-30 07:42] LABS: Hepatitis A Antibody IgM Non-Reactive (Nonreactive); Hepatitis B Core IgM Non-Reactive (Nonreactive); Hepatitis B Surface Antigen Non-Reactive (Nonreactive); Hepatitis C Virus Antibody Non-Reactive (Nonreactive)
[2020-11-30] MEDS: insulin glargine 100 units/1 mL 20 UNIT SUBCUT (08:29)
[2020-11-30] MEDS: tamsulosin 0.4 mg Capsule PO (08:30)
[2020-11-30] MEDS: amlodipine 5 mg Tablet PO (08:30)
[2020-11-30] MEDS: lisinopril 20 mg Tablet 40 MG PO (08:30)
[2020-11-30] MEDS: aspirin 325 mg Tablet PO (08:30)
--- NOTE | 2020-11-30 10:27 | PC.NURSE ---
AM MEDS AM MEDS SCANNED AT APPROX 0830 - PT REFUSES TO EVEN ATTEMPT TO TAKE ORAL MEDICATIONS - PER THIS NURSE OFFERS TO CRUSH MEDS AND PLACE IN APPLESAUCE - PT STILL SHAKES HEAD NO AND PUTS UP HAND - DR BULLOCK MADE AWARE - WILL HOLD MEDICATIONS UNTIL COMES AND ATTEMPT MED PASS AGAIN AT THAT TIME - PT CURRENTLY RESTING ON LEFT SIDE WITH RESP EVEN ET UNLABORED
--- NOTE | 2020-11-30 11:44 | PC.NURSE ---
MEDICATIONS AT SIDE AND ABLE TO ASSIST PT WITH MEDICATIONS - PT IS VERBALE WITH AND STATES I LOVE YOU IN A GARBLED SPEECH WHICH STATES IS BASELINE - PT CONTINUES TO HAVE DIFFICULTY SWALLOWING AGAIN STATES BASELINE
[2020-11-30 12:04] LABS: Glucose Point of Care 158 mg/dL (70-110)
--- NOTE | 2020-11-30 12:22 | PM.PN ---
Subjective Subjective: Interval history: Patient was seen and examined this morning, continues to be drowsy, upon a lot of persuasion, he was answering 1 or 2 questions. Vitals and labs have been reviewed. Medications: Reviewed: Yes Vitals/I&O/Wt Last Vital Signs Temp 97.3 F L 11/30/20 07:42 Pulse 63 11/30/20 07:42 Resp 18 11/30/20 07:42 BP 161/89 11/30/20 07:42 Pulse Ox 97 11/30/20 07:42 11/29/20 11/30/20 11/30/20 22:59 06:59 14:59 Intake Total 1000 / 1000 1093.75 / 1093.75 Output Total 200 / 200 Balance 1000 / 1000 893.75 / 893.75 Weight last 48 hrs Weight 104.326 kg Physical Exam Narrative: EXAM NARRATIVE: Patient is drowsy, though he is awake HENMT: COMMON NORMALS: normocephalic and atraumatic HEAD & SCALP: normocephalic and atraumatic Chest: COMMONS NORMALS: normal inspection of the chest and normal palpation of entire chest wall CHEST: Yes Symmetrical chest wall rise Resp: COMMON NORMALS: normal respiratory effort, No retractions, No use of accessory muscles and clear to auscultation bilaterally EFFORT & INSPECTION: Yes symmetric chest movement AUSCULTATION: clear to auscultation bilaterally Cardio: COMMON NORMALS: regular rate, regular rhythm, S1 normal heart sound present, S2 normal heart sound present, No gallops present (Cardio), No murmurs present (Cardio), No rub (Cardio) and Peripheral pulses 2+ throughout RATE: regular rate RHYTHM: regular rhythm HEART SOUNDS: S1 normal heart sound present and S2 normal heart sound present PERIPHERAL PULSES: Peripheral pulses 2+ throughout GI: COMMON NORMALS: Normal to inspection, nondistended, normoactive bowel sounds present, Soft to palpation, non-tender, No hepatosplenomegaly present and no masses AUSCULTATION: Yes normoactive bowel sounds PALPATION: Yes Soft to palpation and Yes No hepatosplenomegaly present RECTAL EXAM: Yes deferred Extremity: COMMON NORMALS: no clubbing, cyanosis or edema and no pedal edema Data : 11/30/20 06:14 11/30/20 06:14 A&P Assessment and plan (1) Dehydration: Currently on IV hydration with D5 half-normal saline at 50 cc an hour. Will encourage the patient to increase his oral intake. If the patient continues to have poor oral intake, resulting in poor nutritional status, family is ready for PEG tube placement. Status: Acute (2) Hepatic encephalopathy: Grade 1 hepatic encephalopathy likely secondary to dehydration secondary to poor oral intake in the presence of liver cirrhosis with splenomegaly. Status: Acute (3) Liver cirrhosis: Likely secondary to prior alcohol use. Hepatitis panel: Negative AMA Alpha-1 antitrypsin tissue transglutaminase IgA antibody Transferrin saturation ULT abdomen Status: Acute (4) Hyperbilirubinemia: Monitor liver function test for now. 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 Currently no bleeding no petechiae. Monitor CBC for now Status: Acute (6) Hypernatremia: Hypovolemic hypernatremia secondary to poor oral intake Currently on D5 half-normal saline Monitor BMP Status: Acute (7) Recent cerebrovascular accident (CVA): Status: Acute (8) Post PTCA: Status: Acute (9) Ischemic cardiomyopathy: Status: Acute (10) CHF (congestive heart failure): Status: Acute Additional A&P Information Dehydration secondary to dysphagia Anorexia Free water deficit 2.6 L We will keep him on normal saline at 75 mL/h received fluid resuscitation in the ER Systolic blood pressure 150 mmHg, heart rate fluctuating between 50 to 66 bpm no active shortness of breath chest pain or confusion No active vomiting or diarrhea is endorsing that he just has lost his appetite which further complicates his dietary intake as he is already on mechanically soft diet however speech evaluation has not been done since his stroke which I would request in the morning Thrombocytopenia with hyperbilirubinemia Please note he had a recent CVA/infarct, likely secondary to portal hypertension thrombocytopenia and high bilirubin I would keep tick related illness and TTP in my differentials as well, he does not need active plasmapheresis or steroids at this point, however he does not have known anemia or uremia which would go against TTP is stating that he is due to see a community engagement specialist for his chronically elevated bilirubin, no previous diagnosis of Gilbert syndrome, will request bilirubin panel along hepatitis panel, he does not have significant aortic stenosis 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 hepatic cirrhosis with splenomegaly and portal hypertension Left inguinal hernia however abdominal exam is benign Recent acute infarct of putamen He has finished 3 weeks on dual antibiotic therapy I would only continue aspirin for now along statins Right-sided residual weakness with dysphagia Full code Mechanical soft diet, will request speech evaluation in the morning DVT prophylaxis Lovenox would discontinue if platelet count below 100,000 Attestations Medical Necessity Statement*: Patient needs to be in hospital for management of severe dehydration, hypernatremia, poor oral intake, need for IV hydration. Coding Level of Care Code Acute Medical Cash Poster for Chg Fwd Diagnoses Dehydration E86.0 Hepatic encephalopathy K72.90 Liver cirrhosis K74.60 Hyperbilirubinemia E80.6 Thrombocytopenia D69.6 Hypernatremia E87.0 Recent cerebrovascular accident (CVA) Z86.73 Post PTCA Z98.61 Ischemic cardiomyopathy I25.5 CHF (congestive heart failure) I50.9
[2020-11-30] MEDS: dextrose 5%-sod chloride 0.45% 1,000 ML 50 ML IV (12:59)
[2020-11-30 14:00] LABS: Ammonia 15 umol/L (16-60)
[2020-11-30 16:41] LABS: Glucose Point of Care 314 mg/dL (70-110)
--- NOTE | 2020-11-30 16:41 | PC.NURSE ---
END OF SHIFT SUMMARY PT HAS REMAINED MOSTLY NON VERBAL THROUGHOUT THIS SHIFT FOR NURSE - DID ATTEMPT TO SPEAK TO WHILE AT BEDSIDE - SPEECH GARBLED - STATES THAT ITS BASELINE - PT DID TAKE PO MEDICATIONS AND DRINK LIQUIDS FOR WITH MUCH COAXING - COUGH NOTED - AWARE OF DIFFICULTY SWALLOWING - HAS BEEN BOTH CONTINENT AND INCONTINENT OF URINE AT TIMES - AMBULATED FEW STEPS IN ROOM WITH PT - CEDRICK FAIR - RETURNED TO BED - BED ALARM IN PLACE - IV TO LEFT AC CONTINUES TO INFUSE VIA PUMP WITHOUT DIFFICULTY - WILL MONITOR - PT TO BECOME NPO AFTER MIDNIGHT FOR GALLBLADDER US
[2020-11-30 21:08] LABS: Glucose Point of Care 119 mg/dL (70-110)
[2020-12-01] VITALS (8 sets, daily range): BP systolic 136–175; BP diastolic 69–86; PULSE 51–75; RESP 16–18; TEMP 36.3–36.8; O2SAT 92–98
--- NOTE | 2020-12-01 06:00 | US_ITS ---
WS: [id number] RIGHT UPPER QUADRANT ULTRASOUND HISTORY: jaundice, elevated LFT COMPARISON: 07/07/2020 Liver: 14.5 cm in length. Normal size liver. No bile duct dilatation or mass. Gallbladder: Normally distended gallbladder. Several stones in the dependent portion of the gallbladd er. No pericholecystic fluid. Gallbladder wall is mildly thickened up to 6 mm. CBD: 0.4 cm Pancreas: Normal size and echogenicity. Right kidney: 10.2 cm in length. Normal size and echogenicity. No hydronephrosis or mass. Aorta and IVC: Unremarkable abdominal aorta and IVC. No ascites. US/US abdomen limited [id number] IMPRESSION: 1. Cholelithiasis with mild diffuse gallbladder wall thickening which may be c hronic. No pericholecystic fluid or duct dilatation. 2. No bile duct dilatation.
[2020-12-01 08:44] LABS: Basophils % 0.2 %; Eosinophils # 0.2 10^3/uL (0.0-0.8); Hematocrit 49.8 % (42.0-52.0); Hemoglobin 16.5 g/dL (11.7-16.6); Lymphocytes # 2.2 10^3/uL (0.8-4.8); Lymphocytes % 26.3 %; Mean Corpuscular HGB Conc 33.1 g/dL (30.0-36.0); Mean Corpuscular Hemoglobin 30.9 pg (28.0-34.0); Mean Corpuscular Volume 93.3 fL (80-94); Mean Platelet Volume 12.9 fL (7.4-10.4); Monocytes # 0.6 10^3/uL (0.2-0.9); Monocytes % 6.6 %; Neutrophils # 5.48 10^3/uL (1.8-7.7); Neutrophils % 64.2 %; Nucleated Red Blood Cells % 0 %; Platelet Count 72 10^3/cmm (130-400); Red Blood Count 5.34 10^6/uL (4.1-5.3); Red Cell Distribution Width 14.4 % (12.1-15.1); White Blood Count 8.5 10^3/uL (4.0-10.0)
[2020-12-01 09:13] LABS: Glucose Point of Care 107 mg/dL (70-110)
--- NOTE | 2020-12-01 09:47 | PC.CHAP ---
Pastoral Care Encounter/Spiritual Assessment Type of Contact [] Declined software qa manager visit [] Patient/Family/Request visit [] Outpatient visit [] Follow-up visit [] Physician referral [] Code/Alert [x] Routine visit [] Staff referral [] Actively dying [x] Patient sleeping [] Family support [] [] Out of room [] Palliative care [] [] Receiving care in room [] Pre-surgical visit [] Trauma [] Long length of stay [] ICU visit [] Other: Relational/Emotional Strength [] Patient feels connected with others/family/visitors/staff [] Distress [] Loneliness/isolation [] Abandonment Spirituality of Patient [] Person of Adrianne [] Attends Jehovah'S Witness of their Adrianne [] Believes in Prayer [] Reads Bible or Orthodoxy materials [] There are Spiritual issues to be addressed Commissioning Manager Interventions [] Prayer [] Active listening [] Non-anxious presence [] Spiritual/emotional support [] Crisis/trauma care [] Spiritual counseling [] Bereavement support [] Provided bereavement packet [] Provided Bible/devotional materials [] Provided toy/stuffed animal, coloring book to patient or family member [] Provided Communion [] Anointing/[place] [] Salvation [] Completed spiritual assessment [] Other: Impact on Illness or Injury [] Angry [] Fearful [] Anxious [] Often cries [] Exhaustion [] Unable to work [] Unable to attend yazdanism [] Unable to walk/stand [] Unable to read [] Unable to drive [] Unable to eat/drink [] Unable to sleep [] Unable to be with family [] Patient intubated [] Other: Summary Time spent with patient
[2020-12-01 10:36] LABS: Alanine Aminotransferase 16 U/L (0-41); Alkaline Phosphatase 107 IU/L (40-130); Anion Gap 13.5 (5-19); Aspartate Amino Transferase 21 U/L (0-40); Blood Urea Nitrogen 20 mg/dL (8-23); Calcium 8.4 mg/dL (8.5-10.5); Carbon Dioxide 24 mmol/L (22-29); Chloride 111 mmol/L (98-107); Globulin 3.3 g/dL (1.3-4.6); Glucose 184 mg/dL (65-115); Osmolality Calculated 307 mOsm/kg (285-295); Potassium 3.5 mmol/L (3.5-5.1); Sodium 145 mmol/L (136-145); Total Bilirubin 1.8 mg/dL (0.15-1.2); Total Protein 6.3 g/dL (6.6-8.7)
[2020-12-01 10:38] LABS: Ferritin 401 ng/mL (30-400); Iron 76 ug/dL (59-158); Lactate Dehydrogenase 137 U/L (135-225); Percent Saturation 60.3 % (20-50); Total Iron Binding Capacity 126 mcg/dl; Transferrin 113 mg/dL (200-360); Unsaturated Iron Binding 50 ug/dL (112-347)
[2020-12-01] MEDS: aspirin 325 mg Tablet PO (11:40)
[2020-12-01] MEDS: tamsulosin 0.4 mg Capsule PO (11:41)
[2020-12-01] MEDS: amlodipine 5 mg Tablet PO (11:42)
[2020-12-01] MEDS: insulin glargine 100 units/1 mL 20 UNIT SUBCUT (12:11)
[2020-12-01 12:41] LABS: Glucose Point of Care 218 mg/dL (70-110)
--- NOTE | 2020-12-01 15:29 | DCPLANNER ---
center manager had message to schedule a follow up appointment for patient with [facility]. center manager called [facility], spoke with [facility], gave clinic patients information. A follow up appointment is scheduled for , December 03, 2020 at 2:[address] Copeland. center manager was told that patient is aware of appointment.
--- NOTE | 2020-12-01 16:30 | P.PN_ITS ---
Subjective Subjective: Interval history: Patient was seen and examined this morning, continues to have poor oral intake.Continues to be very less responsive. Medications: Reviewed: Yes Vitals/I&O/Wt Last Vital Signs Temp 97.4 F L 12/01/20 12:00 Pulse 70 12/01/20 12:00 Resp 18 12/01/20 12:00 BP 151/84 12/01/20 12:00 Pulse Ox 98 12/01/20 12:00 12/01/20 12/01/20 12/01/20 06:59 14:59 22:59 Intake Total 0 / 1950.00 480 / 480 Output Total 200 / 600 Balance -200 / 1350.00 480 / 480 Physical Exam Narrative: EXAM NARRATIVE: Patient is drowsy, though he is awake HENMT: COMMON NORMALS: normocephalic and atraumatic HEAD & SCALP: normocephalic and atraumatic Chest: COMMONS NORMALS: normal inspection of the chest and normal palpation of entire chest wall CHEST: Yes Symmetrical chest wall rise Resp: COMMON NORMALS: normal respiratory effort, No retractions, No use of accessory muscles and clear to auscultation bilaterally EFFORT & INSPECTION: Yes symmetric chest movement AUSCULTATION: clear to auscultation bilaterally Cardio: COMMON NORMALS: regular rate, regular rhythm, S1 normal heart sound present, S2 normal heart sound present, No gallops present (Cardio), No murmurs present (Cardio), No rub (Cardio) and Peripheral pulses 2+ throughout RATE: regular rate RHYTHM: regular rhythm HEART SOUNDS: S1 normal heart sound present and S2 normal heart sound present PERIPHERAL PULSES: Peripheral pulses 2+ throughout GI: COMMON NORMALS: Normal to inspection, nondistended, normoactive bowel sounds present, Soft to palpation, non-tender, No hepatosplenomegaly present and no masses AUSCULTATION: Yes normoactive bowel sounds PALPATION: Yes Soft to palpation and Yes No hepatosplenomegaly present RECTAL EXAM: Yes deferred Extremity: COMMON NORMALS: no clubbing, cyanosis or edema and no pedal edema Data : 12/01/20 08:20 12/01/20 09:48 A&P Assessment and plan (1) Dehydration: Currently on IV hydration with D5 half-normal saline at 50 cc an hour. Will encourage the patient to increase his oral intake. If the patient continues to have poor oral intake, resulting in poor nutritional status, family is ready for PEG tube placement. Status: Acute (2) Hepatic encephalopathy: Grade 1 hepatic encephalopathy likely secondary to dehydration secondary to poor oral intake in the presence of liver cirrhosis with splenomegaly. Status: Acute (3) Liver cirrhosis: Likely secondary to prior alcohol use. Hepatitis panel: Negative AMA: Alpha-1 antitrypsin tissue transglutaminase IgA antibody Transferrin saturation: Serum ferritin: ULT abdomen: Cholelithiasis with mild diffuse gallbladder wall thickening which may be chronic. No pericholecystic fluid or duct dilatation. No bile duct dilatation. Patient is due to see hepatology as an outpatient. Status: Acute (4) Hyperbilirubinemia: Improving: Total bilirubin has trended down to: 1.8, direct bilirubin is 0.50. Monitor liver function test for now. 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 Currently no bleeding no petechiae. Monitor CBC for now Status: Acute (6) Hypernatremia: Hypovolemic hypernatremia secondary to poor oral intake Currently on D5 half-normal saline Monitor BMP Status: Acute (7) Recent cerebrovascular accident (CVA): Status: Acute (8) Post PTCA: Status: Acute (9) Ischemic cardiomyopathy: Status: Acute (10) CHF (congestive heart failure): Status: Acute Additional A&P Information Dehydration secondary to dysphagia Anorexia Free water deficit 2.6 L We will keep him on normal saline at 75 mL/h received fluid resuscitation in the ER Systolic blood pressure 150 mmHg, heart rate fluctuating between 50 to 66 bpm no active shortness of breath chest pain or confusion No active vomiting or diarrhea is endorsing that he just has lost his appetite which further complicates his dietary intake as he is already on mechanically soft diet however speech evaluation has not been done since his stroke which I would request in the morning Thrombocytopenia with hyperbilirubinemia Please note he had a recent CVA/infarct, likely secondary to portal hypertension thrombocytopenia and high bilirubin I would keep tick related illness and TTP in my differentials as well, he does not need active plasmapheresis or steroids at this point, however he does not have known anemia or uremia which would go against TTP is stating that he is due to see a associate media director for his chronically elevated bilirubin, no previous diagnosis of Gilbert syndrome, will request bilirubin panel along hepatitis panel, he does not have significant aortic stenosis 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
[2020-12-01 17:24] LABS: Glucose Point of Care 286 mg/dL (70-110)
[2020-12-01] MEDS: dextrose 5%-sod chloride 0.45% 1,000 ML 50 ML IV (17:51)
[2020-12-01 21:11] LABS: Glucose Point of Care 238 mg/dL (70-110)
[2020-12-02 03:09] VITALS: BP 94/56; PULSE 76; RESP 16; TEMP 36.7; O2SAT 93
[2020-12-02 05:39] LABS: Basophils % 0.2 %; Eosinophils # 0.2 10^3/uL (0.0-0.8); Eosinophils % 2.6 %; Hemoglobin 13.9 g/dL (11.7-16.6); Lymphocytes % 31.8 %; Mean Corpuscular HGB Conc 34.8 g/dL (30.0-36.0); Mean Corpuscular Hemoglobin 31.1 pg (28.0-34.0); Mean Corpuscular Volume 89.5 fL (80-94); Mean Platelet Volume 12.3 fL (7.4-10.4); Monocytes # 0.3 10^3/uL (0.2-0.9); Monocytes % 5.5 %; Neutrophils % 59.4 %; Nucleated Red Blood Cells % 0 %; Platelet Count 58 10^3/cmm (130-400); Red Blood Count 4.47 10^6/uL (4.1-5.3); Red Cell Distribution Width 13.8 % (12.1-15.1); White Blood Count 6.2 10^3/uL (4.0-10.0)
[2020-12-02 06:00] VITALS: PULSE 50
[2020-12-02 06:02] LABS: Alanine Aminotransferase 16 U/L (0-41); Albumin Level 2.8 g/dL (3.5-5.2); Alkaline Phosphatase 99 IU/L (40-130); Anion Gap 12.3 (5-19); Aspartate Amino Transferase 21 U/L (0-40); Blood Urea Nitrogen 18 mg/dL (8-23); Calcium 8.2 mg/dL (8.5-10.5); Carbon Dioxide 25 mmol/L (22-29); Chloride 112 mmol/L (98-107); Globulin 3.1 g/dL (1.3-4.6); Glucose 146 mg/dL (65-115); Osmolality Calculated 307 mOsm/kg (285-295); Potassium 3.3 mmol/L (3.5-5.1); Sodium 146 mmol/L (136-145); Total Bilirubin 1.9 mg/dL (0.15-1.2); Total Protein 5.9 g/dL (6.6-8.7)
[2020-12-02 06:30] LABS: Glucose Point of Care 158 mg/dL (70-110)
[2020-12-02 07:10] VITALS: BP 144/72; PULSE 49; RESP 17; TEMP 36.4; O2SAT 95
[2020-12-02] MEDS: lisinopril 20 mg Tablet 40 MG PO (08:54)
[2020-12-02] MEDS: aspirin 325 mg Tablet PO (08:54)
[2020-12-02] MEDS: tamsulosin 0.4 mg Capsule PO (08:54)
[2020-12-02] MEDS: amlodipine 5 mg Tablet PO (08:54)
[2020-12-02] MEDS: potassium chloride oral liq 20 mEq/15 mL UDC PO (09:56)
[2020-12-02] MEDS: insulin glargine 100 units/1 mL 20 UNIT SUBCUT (09:57)
[2020-12-02 11:03] LABS: Glucose Point of Care 365 mg/dL (70-110)
[2020-12-02 11:58] VITALS: BP 131/76; PULSE 57; RESP 16; TEMP 36.6; O2SAT 94
--- NOTE | 2020-12-02 12:00 | PC.NUTR ---
Nutrition consult per Dr. Cleaning completed. Recommend Glucerna (strawberry or butter pecan) with lunch, Boost Breeze with breakfast and supper. Added pt preferences to diet information: jo icy, orange sherbet, ice cream, fish, scrambled eggs. Recommend monitor glucose, as many of pt's preferred foods are high in CHO, however due to poor po intake and dehydration, recommend provide preferences as much as appropriate. See RD assessment for further details.
--- NOTE | 2020-12-02 12:30 | PM.PN ---
Subjective Subjective: Interval history: Patient was seen and examined this morning he is currently much more alert , awake and active today, his p.o. intake has also increased, participating with physical therapy. His other vitals and labs have been reviewed. Medications: Reviewed: Yes Vitals/I&O/Wt Last Vital Signs Temp 97.8 F 12/02/20 11:58 Pulse 57 L 12/02/20 11:58 Resp 16 12/02/20 11:58 BP 131/76 12/02/20 11:58 Pulse Ox 94 12/02/20 11:58 12/01/20 12/02/20 12/02/20 22:59 06:59 14:59 Intake Total 220 / 1700 150 / 1850 360 / 360 Output Total 200 / 200 100 / 300 100 / 100 Balance 20 / 1500 50 / 1550 260 / 260 Physical Exam Narrative: EXAM NARRATIVE: Patient is drowsy, though he is awake HENMT: COMMON NORMALS: normocephalic and atraumatic HEAD & SCALP: normocephalic and atraumatic Chest: COMMONS NORMALS: normal inspection of the chest and normal palpation of entire chest wall CHEST: Yes Symmetrical chest wall rise Resp: COMMON NORMALS: normal respiratory effort, No retractions, No use of accessory muscles and clear to auscultation bilaterally EFFORT & INSPECTION: Yes symmetric chest movement AUSCULTATION: clear to auscultation bilaterally Cardio: COMMON NORMALS: regular rate, regular rhythm, S1 normal heart sound present, S2 normal heart sound present, No gallops present (Cardio), No murmurs present (Cardio), No rub (Cardio) and Peripheral pulses 2+ throughout RATE: regular rate RHYTHM: regular rhythm HEART SOUNDS: S1 normal heart sound present and S2 normal heart sound present PERIPHERAL PULSES: Peripheral pulses 2+ throughout GI: COMMON NORMALS: Normal to inspection, nondistended, normoactive bowel sounds present, Soft to palpation, non-tender, No hepatosplenomegaly present and no masses AUSCULTATION: Yes normoactive bowel sounds PALPATION: Yes Soft to palpation and Yes No hepatosplenomegaly present RECTAL EXAM: Yes deferred : COMMON NORMALS: Yes no CVA tenderness BLADDER/KIDNEY EXAM: Yes no CVA tenderness Back/Pelvis: COMMON NORMALS: no CVA tenderness Extremity: COMMON NORMALS: no clubbing, cyanosis or edema and no pedal edema Data : 12/02/20 05:26 12/02/20 05:26 A&P Assessment and plan (1) Dehydration: Currently on IV hydration with D5 half-normal saline at 50 cc an hour. Will encourage the patient to increase his oral intake. If the patient continues to have poor oral intake, resulting in poor nutritional status, family is ready for PEG tube placement. Status: Acute (2) Hepatic encephalopathy: Improving Grade 1 hepatic encephalopathy likely secondary to dehydration secondary to poor oral intake in the presence of liver cirrhosis with splenomegaly. Status: Acute (3) Liver cirrhosis: Likely secondary to prior alcohol use. Hepatitis panel: Negative AMA:Pending Alpha-1 antitrypsin :Pending tissue transglutaminase IgA antibody:Pending Transferrin saturation: 60 Serum ferritin:401 ULT abdomen: Cholelithiasis with mild diffuse gallbladder wall thickening which may be chronic. No pericholecystic fluid or duct dilatation. No bile duct dilatation. Patient is due to see hepatology as an outpatient. Status: Acute (4) Hyperbilirubinemia: Improving: Total bilirubin has trended down to: 1.8, direct bilirubin is 0.50. Monitor liver function test for now. 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 Currently no bleeding no petechiae. Monitor CBC for now Status: Acute (6) Hypernatremia: Hypovolemic hypernatremia secondary to poor oral intake Currently on D5 half-normal saline Monitor BMP Status: Acute (7) Recent cerebrovascular accident (CVA): Status: Acute (8) Post PTCA: Status: Acute (9) Ischemic cardiomyopathy: Status: Acute (10) CHF (congestive heart failure): Status: Acute Additional A&P Information Dehydration secondary to dysphagia Anorexia Free water deficit 2.6 L We will keep him on normal saline at 75 mL/h received fluid resuscitation in the ER Systolic blood pressure 150 mmHg, heart rate fluctuating between 50 to 66 bpm no active shortness of breath chest pain or confusion No active vomiting or diarrhea is endorsing that he just has lost his appetite which further complicates his dietary intake as he is already on mechanically soft diet however speech evaluation has not been done since his stroke which I would request in the morning Thrombocytopenia with hyperbilirubinemia Please note he had a recent CVA/infarct, likely secondary to portal hypertension thrombocytopenia and high bilirubin I would keep tick related illness and TTP in my differentials as well, he does not need active plasmapheresis or steroids at this point, however he does not have known anemia or uremia which would go against TTP is stating that he is due to see a engineering surveyor for his chronically elevated bilirubin, no previous diagnosis of Gilbert syndrome, will request bilirubin panel along hepatitis panel, he does not have significant aortic stenosis 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 hepatic cirrhosis with splenomegaly and portal hypertension Left inguinal hernia however abdominal exam is benign Recent acute infarct of putamen He has finished 3 weeks on dual antibiotic therapy I would only continue aspirin for now along statins Right-sided residual weakness with dysphagia Full code Mechanical soft diet, will request speech evaluation in the morning DVT prophylaxis Lovenox would discontinue if platelet count below 100,000 Attestations Medical Necessity Statement*: Patient needs to be in hospital for management of poor oral intake , severe dehydration , need for IV hydration. 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
[2020-12-02 15:09] VITALS: BP 143/67; PULSE 64; RESP 16; TEMP 36.3; O2SAT 94
[2020-12-02 16:55] LABS: Glucose Point of Care 190 mg/dL (70-110)
[2020-12-02 19:53] VITALS: BP 143/74; PULSE 63; RESP 17; TEMP 36.1; O2SAT 91
[2020-12-02 20:44] LABS: Glucose Point of Care 215 mg/dL (70-110)
[2020-12-02] MEDS: dextrose 5%-sod chloride 0.45% 1,000 ML 50 ML IV (21:01)
[2020-12-03] VITALS: BP 148/80; PULSE 83; RESP 16; TEMP 36.6; O2SAT 95
[2020-12-03 04:00] VITALS: BP 179/91; PULSE 69; RESP 17; TEMP 36.6; O2SAT 97
[2020-12-03 06:28] LABS: Basophils % 0.2 %; Eosinophils # 0.1 10^3/uL (0.0-0.8); Eosinophils % 1.9 %; Hematocrit 41.2 % (42.0-52.0); Hemoglobin 14.3 g/dL (11.7-16.6); Lymphocytes # 1.7 10^3/uL (0.8-4.8); Lymphocytes % 27.2 %; Mean Corpuscular HGB Conc 34.7 g/dL (30.0-36.0); Mean Corpuscular Hemoglobin 30.8 pg (28.0-34.0); Mean Corpuscular Volume 88.6 fL (80-94); Mean Platelet Volume 12.4 fL (7.4-10.4); Monocytes # 0.4 10^3/uL (0.2-0.9); Monocytes % 5.5 %; Neutrophils # 4.12 10^3/uL (1.8-7.7); Neutrophils % 64.6 %; Nucleated Red Blood Cells % 0 %; Platelet Count 50 10^3/cmm (130-400); Red Blood Count 4.65 10^6/uL (4.1-5.3); Red Cell Distribution Width 14.2 % (12.1-15.1); White Blood Count 6.4 10^3/uL (4.0-10.0)
[2020-12-03 06:39] LABS: Glucose Point of Care 156 mg/dL (70-110)
[2020-12-03 06:50] LABS: Alanine Aminotransferase 20 U/L (0-41); Albumin Level 2.9 g/dL (3.5-5.2); Alkaline Phosphatase 103 IU/L (40-130); Aspartate Amino Transferase 23 U/L (0-40); Blood Urea Nitrogen 15 mg/dL (8-23); Calcium 8.2 mg/dL (8.5-10.5); Carbon Dioxide 25 mmol/L (22-29); Chloride 110 mmol/L (98-107); Glucose 133 mg/dL (65-115); Osmolality Calculated 299 mOsm/kg (285-295); Sodium 143 mmol/L (136-145); Total Bilirubin 1.9 mg/dL (0.15-1.2); Total Protein 5.9 g/dL (6.6-8.7)
[2020-12-03 06:59] LABS: Anion Gap 11.4 (5-19); Potassium 3.4 mmol/L (3.5-5.1)
[2020-12-03 07:33] VITALS: BP 138/72; PULSE 53; RESP 18; TEMP 36.6; O2SAT 97
--- NOTE | 2020-12-03 08:15 | P.DS_ITS ---
Discharge Providers Date of Admission: 11/30/20 19:12 Date of Discharge: December 03, 2020 Attending Provider at Admission: Simone De Anda MD Attending Provider at Discharge: Tyrone Cleaning MD Primary Care Provider: ALVARO Hurst Diagnoses at Discharge Discharge Diagnosis (1) Dehydration: Status: Resolved (2) Hepatic encephalopathy: Status: Resolved (3) Liver cirrhosis: Status: Chronic (4) Hyperbilirubinemia: Status: Acute (5) Thrombocytopenia: Status: Chronic (6) Hypernatremia: Status: Resolved (7) Recent cerebrovascular accident (CVA): Status: Acute (8) Post PTCA: Status: Acute (9) Ischemic cardiomyopathy: Status: Acute (10) CHF (congestive heart failure): Status: Acute Reason for Visit Reason for Visit: [place] Hospital Course Hospital Course 70 year old male who has multiple comorbid conditions was recently diagnosed with acute left putamen infarct 3 weeks ago with right-sided residual weakness and dysphagia presented with chief complaint of poor oral intake and yellow discoloration of eyes. He was admitted for the management of severe dehydration, jaundice. During this hospital stay he was managed for grade 1 hepatic encephalopathy likely secondary to dehydration secondary to poor oral intake in the presence of liver cirrhosis with splenomegaly. He he is due to see a curtain mender as an outpatient for liver cirrhosis work-up most likely etiology currently is due to prior alcohol use Hepatitis panel has been negative, transferrin saturation is 60, serum ferritin 401, will likely need hemochromatosis work-up as an outpatient for possible cause of cirrhosis.ULT abdomen: Cholelithiasis with mild diffuse gallbladder wall thickening which may be chronic. No pericholecystic fluid or duct dilatation. No bile duct dilatation. Patient is due to see hepatology as an outpatient.AMA:Pending, Alpha-1 antitrypsin :Pending tissue transglutaminase IgA antibody:Pending. Hyperbilirubinemia was improving with IV hydration, the time of discharge total bilirubin was trending down, direct bilirubin: Was 0.50, with total bilirubin of 1.9. He was also managed for chronic thrombocytopenia: Likely due to underlying liver cirrhosis with splenomegaly. Low clinical suspicion for HIT,TTP,HUS,DIC, cannot conclusively rule out ITP. With regards to his dehydration and poor oral intake contributing to hepatic encephalopathy, his mentation improved with IV hydration, at the time of discharge his overall oral intake has improved.Due to his persistent overall worsening secondary to recurrent hospitalization with poor oral intake at home, option for PEG tube placement was also explored, but since he has done well with IV hydration this time, it was decided to continue to monitor him for now and send him to a long term facility to facilitate further recovery. Electrolyte abnormalities corrections were undertaken which included correcting hypernatremia and hypokalemia. Covid testing was negative.Patient overall responded well to the above medical management, and is being discharged in stable condition to [facility]. Physical Exam HENMT: COMMON NORMALS: normocephalic and atraumatic HEAD & SCALP: normocephalic and atraumatic Chest: COMMONS NORMALS: normal inspection of the chest and normal palpation of entire chest wall CHEST: Yes Symmetrical chest wall rise Resp: COMMON NORMALS: normal respiratory effort, No retractions, No use of accessory muscles and clear to auscultation bilaterally EFFORT & INSPECTION: Yes symmetric chest movement AUSCULTATION: clear to auscultation bilaterally Cardio: COMMON NORMALS: regular rate, regular rhythm, S1 normal heart sound present, S2 normal heart sound present, No gallops present (Cardio), No murmurs present (Cardio), No rub (Cardio) and Peripheral pulses 2+ throughout RATE: regular rate RHYTHM: regular rhythm HEART SOUNDS: S1 normal heart sound present and S2 normal heart sound present PERIPHERAL PULSES: Peripheral pulses 2+ throughout GI: COMMON NORMALS: Normal to inspection, nondistended, normoactive bowel sounds present, Soft to palpation, non-tender, No hepatosplenomegaly present and no masses AUSCULTATION: Yes normoactive bowel sounds PALPATION: Yes Soft to palpation and Yes No hepatosplenomegaly present RECTAL EXAM: Yes deferred : COMMON NORMALS: Yes no CVA tenderness BLADDER/KIDNEY EXAM: Yes no CVA tenderness Back/Pelvis: COMMON NORMALS: no CVA tenderness Extremity: COMMON NORMALS: no clubbing, cyanosis or edema and no pedal edema Discharge Data Data Completed and Pending: Completed Studies During Hospitalization Category Date Time Status CT angio abd aort a runof [id number] Urge nt Cat Scan 11/29/20 18:[address] head wo con* 7 0450 Urgent Cat Scan 11/29/20 17:13 Completed XR chest 1V paula ble 16220 Urgent Exams 11/29/20 17:13 [place] [id number] Rout ine Ultrasound 11/30/20 00:26 Completed US abdomen limite d [id number] Routine Ultrasound 12/01/20 06:00 Completed Pending at discharge Category Date Time Status Alpha 1 Antitryps in Routine Lab 12/01/20 09:48 Received Mitochondrial AB Screen Routine Lab 12/01/20 09:48 Received Tissue Transgluta minase AB Lamb Rout ine Lab 12/01/20 09:48 Received Labs from last 24 hours 12/03/20 12/03/20 12/03/20 06:23 05:55 05:55 WBC 6.4 RBC 4.65 Hgb 14.3 Hct 41.2 L MCV 88.6 MCH 30.8 MCHC 34.7 RDW 14.2 Plt Count 50 L MPV 12.4 H Neut % (Auto) 64.6 Lymph % (Auto) 27.2 [place] % (Auto) 5.5 Eos % (Auto) 1.9 Baso % (Auto) 0.2 Neut # (Auto) 4.12 Lymph # (Auto) 1.7 [place] # (Auto) 0.4 Eos # (Auto) 0.1 Baso # (Auto) 0.0 Nucleated RBC % (a uto) 0 Nucleated RBCs # 0.0 Sodium 143 Potassium 3.4 L Chloride 110 H Carbon Dioxide 25 Anion Gap 11.4 BUN 15 Creatinine 0.7 GFR Calculation Not Reportable Glucose 133 H POC Glucose 156 H Calculated Osmolal ity 299 H Calcium 8.2 L Total Bilirubin 1.9 H AST 23 ALT 20 Alkaline Phosphata se 103 Total Protein 5.9 L Albumin 2.9 L Globulin 3.0 12/02/20 12/02/20 12/02/20 20:39 16:46 10:47 WBC RBC Hgb Hct MCV MCH MCHC RDW Plt Count MPV Neut % (Auto) Lymph % (Auto) [place] % (Auto) Eos % (Auto) Baso % (Auto) Neut # (Auto) Lymph # (Auto) [place] # (Auto) Eos # (Auto) Baso # (Auto) Nucleated RBC % (a uto) Nucleated RBCs # Sodium Potassium Chloride Carbon Dioxide Anion Gap BUN Creatinine GFR Calculation Glucose POC Glucose 215 H 190 H 365 H Calculated Osmolal ity Calcium Total Bilirubin AST ALT Alkaline Phosphata se Total Protein Albumin Globulin Vitals: Last Vital Signs Temp 97.8 F 12/03/20 07:33 Pulse 53 L 12/03/20 07:33 Resp 18 12/03/20 07:33 BP 138/72 12/03/20 07:33 Pulse Ox 97 12/03/20 07:33 Discharge Plan Discharge Patient Disposition: Xfer [facility] Condition: Stable Prescriptions: Continued nitroglycerin 0.4 mg tablet, sublingual 0.4 mg SUBLINGUAL Q5M PRN (Reason: chest pain) Qty: 20 RF: 3 lisinopril 40 mg tablet 40 mg PO DAILY RF: 0 tamsulosin 0.4 mg capsule 0.4 mg PO DAILY RF: 0 aspirin 325 mg tablet 325 mg PO DAILY RF: 0 acetaminophen 500 mg tablet 500 mg PO Q4H PRN (Reason: PAIN) RF: 0 furosemide 40 mg tablet 40 mg PO DAILY Qty: 30 RF: 3 potassium chloride 20 mEq tablet extended release 20 meq PO DAILY Qty: 30 RF: 3 amlodipine 5 mg tablet 5 mg PO DAILY Qty: 30 RF: 0 clopidogrel [Plavix] 75 mg tablet 75 mg PO DAILY Qty: 21 RF: 0 atorvastatin 40 mg Tablet 40 mg PO BEDTIME Qty: 30 RF: 0 Lantus Solostar U-100 Insulin 100 unit/mL (3 mL) insulin pen 20 unit SUBCUT DAILY RF: 0 Discharge Orders: Discharge Order (Routine); Ordered 12/03/20 Ordered By: Tyrone Cleaning Referrals: [facility] [Outside] Discharge Diet: Soft Mechanical Discharge Activity: Increase activity as tolerated Patient Instructions: Dehydration (DC), Cirrhosis (DC), CHF Stoplight Discharge Attestations Time Spent in Discharge Care*: less than 30 min Specific Discharge Activities: educating patient, educating and/or supporting family/caregiver, discussing with pcp/other providers, discussing with case therapist/social workers/dc planners, documenting/other paperwork and evaluating patient/reviewing data Status at Discharge: Cognitive status at discharge: cognitively intact , Behavioral status at discharge: cooperative , Overall status at discharge: patient is back to baseline Quality Metrics Clinical Quality Measures During this hospital stay, did patient experience: None Coding Level of Care Code Acute Chg FW DC note Diagnoses Dehydration E86.0 Hepatic encephalopathy K72.90 Liver cirrhosis K74.60 Hyperbilirubinemia E80.6 Thrombocytopenia D69.6 Hypernatremia E87.0 Recent cerebrovascular accident (CVA) Z86.73 Post PTCA Z98.61 Ischemic cardiomyopathy I25.5 CHF (congestive heart failure) I50.9
[2020-12-03] MEDS: lisinopril 20 mg Tablet 40 MG PO (08:36)
[2020-12-03] MEDS: aspirin 325 mg Tablet PO (08:37)
[2020-12-03] MEDS: insulin glargine 100 units/1 mL 20 UNIT SUBCUT (08:37)
[2020-12-03] MEDS: amlodipine 5 mg Tablet PO (08:37)
[2020-12-03] MEDS: tamsulosin 0.4 mg Capsule PO (08:37)
[2020-12-03 09:22] LABS: Alpha 1 Antitrypsin 143 mg/dL (83-199)
[2020-12-03 09:50] VITALS: BP 138/72; PULSE 53; RESP 18; TEMP 36.6; O2SAT 97
--- NOTE | 2020-12-03 10:19 | PC.SOCIAL ---
*IMM UPDATED* Gave patient's verbal IMM update. Left copy of pg 2 at bedside. 12/03/20 @ 0989 Initialed, dated, timed and placed in chart.
[2020-12-03 11:16] VITALS: BP 153/76; PULSE 58; RESP 18; TEMP 36.6; O2SAT 91
[2020-12-03 11:35] LABS: SARS Covid-2 Antigen Negative (Negative)
[2020-12-03 11:44] LABS: Glucose Point of Care 318 mg/dL (70-110)
[2020-12-04 14:17] LABS: Tissue Transglutaminse AB IGA <1 U/mL; Tissue Transglutaminse AB IGG 2 U/mL
--- NOTE | 2021-01-15 14:15 | DCPLANNER ---
Patient had a follow up appointment scheduled for 12.03.20 with [facility] - patient did attend appointment.
== END 2020-12-03 11:55 | disposition skilled nursing facility (03) | DRG 641 ==
LOC: ER 18:52 → MEDSURG 22:42
PROVIDERS: Admitting Provider Internal Medicine; Emergency Provider Family Medicine; PCP Nurse Practitioner; Visit Provider Internal Medicine
DX: E86.0 Dehydration (principal); I69.951 Hemiplegia and hemiparesis following unspecified cerebrovascular disease affecting right dominant side; K76.6 Portal hypertension; I69.991 Dysphagia following unspecified cerebrovascular disease; R13.10 Dysphagia, unspecified; D69.59 Other secondary thrombocytopenia; E87.0 Hyperosmolality and hypernatremia; D75.1 Secondary polycythemia; N40.1 Benign prostatic hyperplasia with lower urinary tract symptoms; I25.10 Atherosclerotic heart disease of native coronary artery without angina pectoris; Z95.5 Presence of coronary angioplasty implant and graft; G89.29 Other chronic pain; E11.9 Type 2 diabetes mellitus without complications; K21.9 Gastro-esophageal reflux disease without esophagitis; E78.5 Hyperlipidemia, unspecified; I11.0 Hypertensive heart disease with heart failure; I50.9 Heart failure, unspecified; I25.5 Ischemic cardiomyopathy; I25.2 Old myocardial infarction; E66.9 Obesity, unspecified; Z68.28 Body mass index [BMI] 28.0-28.9, adult; Z96.659 Presence of unspecified artificial knee joint; Z79.4 Long term (current) use of insulin; Z79.02 Long term (current) use of antithrombotics/antiplatelets; K80.20 Calculus of gallbladder without cholecystitis without obstruction; F10.21 Alcohol dependence, in remission; R16.1 Splenomegaly, not elsewhere classified; K70.30 Alcoholic cirrhosis of liver without ascites; K70.40 Alcoholic hepatic failure without coma; Z87.891 Personal history of nicotine dependence
CPT/HCPCS: 36415; 36416; 70450; 71045; 75635; 76705; 80048; 80053; 80074; 81001; 82103; 82140; 82248; 82728; 82962; 83010; 83516; 83540; 83550; 83605; 83615; 84466; 84484; 85025; 87426; 92523; 92526; 92610; 93005; 93923; 96360; 96361; 96372; 97110; 97116; 97161; 97530; 99285; G0378; J1650; J1815 ×2; J7030; J7799; Q9967

== ENCOUNTER 2021-02-27 10:46 | Outpatient (CLI) | payer OTHER, SELFPAY ==
--- NOTE | 2021-02-27 10:56 | US_ITS ---
WS: [id number] Complete ABDOMINAL ULTRASOUND HISTORY: LIVER CIRRHOSIS COMPARISON: None available. Liver: 17.2 cm in length. Liver slightly enlarged. Surface of the liver is irregular consistent with cirrhosis. Coarse echotexture with no mass or bile duct dilatation. Gallbladder: Normally distended gallbladder with stones and sludge. No wall thickening. No pericholec ystic fluid. Gallbladder wall thickness: 0.2 cm. Pancreas: Not visualized. CBD: 0.6 cm. Right kidney: 10.5 cm x 3.7 cm x 4.9 cm. No hydronephrosis. Cyst noted within the inferior RIGHT kid abisai was also described on a prior CT as a simple cyst. Cyst measures 2.2 x 1.7 x 2.2 cm. Left kidney: 11.7 cm x 4.8 cm x 6.0 cm. No mass, cortical thickening or hydronephrosis. Spleen: Enlarged spleen measures 18 cm in length. No masses. Abdominal aorta and IVC are within normal limits. No ascites. US/US abdomen complete* [id number] IMPRESSION: 1. Hepatosplenomegaly with changes of cirrhosis. 2. Cholelithiasis with a small amount of gallbladder sludge. No evidence for a cute cholecystitis. 3. Simple cyst RIGHT kidney with a maximum diameter of 2.2 cm.
== END 2021-02-27 10:47 | disposition home or self-care (01) ==
PROVIDERS: PCP Nurse Practitioner; Visit Provider Nurse Practitioner
DX: K74.60 Unspecified cirrhosis of liver (principal); D69.6 Thrombocytopenia, unspecified; R16.2 Hepatomegaly with splenomegaly, not elsewhere classified; K80.50 Calculus of bile duct without cholangitis or cholecystitis without obstruction; N28.1 Cyst of kidney, acquired
CPT/HCPCS: 76700

== ENCOUNTER 2021-07-06 10:10 | Outpatient (CLI) | payer OTHER, SELFPAY ==
--- NOTE | 2021-07-06 10:13 | CT_ITS ---
WS: [id number] CT NECK TECHNIQUE: Contrast-enhanced CT of the neck with coronal and sagittal reformatted images. CLINICAL INFORMATION: CHRONIC LARYNGITIS/DYSPHAGIA COMPARISON: None. DLP: 305.[address] scans at [facility] use at least one of these dose optimization techniques: automated e xposure control; mA and/or kV adjustment per patient size (includes targeted exams where dose is matc hed to clinical indication); or iterative reconstruction. FINDINGS: Parotid glands are normal. Normal posterior nasopharynx. Normal parapharyngeal fat. Slight asymmetric fullness in the LEFT palatine tonsil and LEFT tongue base although no well-defined discrete mass. Sl ight thickening along the adjacent LEFT posterior lateral pharyngeal wall and aryepiglottic fold. Rec ommend further evaluation with direct visualization. Normal piriform sinuses. Subglottic airway is no rmal. Normal glottis. Enlarged LEFT level 2 cervical lymph node measuring 11 mm AP by 19 mm craniocaudal. This is anterior to the sternocleidomastoid and posterior to the submandibular gland. No other additional pathologic e nlarged cervical lymph nodes. Normal posterior triangle. Hazy atelectasis in the lung apices. Moderate spondylitic changes cervical spine with anterior hypert rophic changes at C4-C6. Disc osteophyte complex at C5-C6 with mild to moderate central canal stenosi s. Normal thyroid gland. Paranasal sinuses and mastoid air cells well aerated. Partially visualized i ntracranial contents appear unremarkable. Mild carotid bulb calcification. CT/CT neck w con* [id number] IMPRESSION: 1. Salivary glands are normal. 2. Enlarged LEFT level 2 cervical lymph node measuring 11 mm AP by 19 mm crani ocaudal. This is indeterminant and consider further evaluation with PET/CT if s uspicion for neoplasm. Alternatively this could be sampled with FNA or ultrasou nd-guided FNA. 3. Slight asymmetric fullness in the LEFT palatine tonsil and LEFT tongue base . Slight soft tissue thickening along the adjacent LEFT posterior lateral phary ngeal wall. Recommend further evaluation with direct visualization and ENT cons ultation to exclude neoplasm. 4. Normal glottis and subglottic airway. 5. Mild carotid bulb calcification. 6. Moderate spondylitic changes cervical spine with mild to moderate central c anal stenosis at C5-C6.
[2021-07-06 10:56] LABS: Blood Urea Nitrogen 14 mg/dL (8-23)
[2021-07-06] MEDS: iohexol 300 mg/mL 100 mL Btl IV (11:06)
== END 2021-07-06 10:11 | disposition home or self-care (01) ==
PROVIDERS: PCP Nurse Practitioner; Visit Provider Otolaryngology
DX: J37.0 Chronic laryngitis (principal); R13.12 Dysphagia, oropharyngeal phase; R49.0 Dysphonia; I65.23 Occlusion and stenosis of bilateral carotid arteries
CPT/HCPCS: 70491; 82565; 84520

== ENCOUNTER 2021-08-17 08:29 | Outpatient (CLI) | payer OTHER, SELFPAY ==
--- NOTE | 2021-08-17 08:46 | FL_ITS ---
WS: [id number] ESOPHAGRAM WITH FLUOROSCOPY HISTORY: Difficulty swallowing. History of stroke. COMPARISON: None available. FLUOROSCOPY TIME: .6 minutes. Limited evaluation of the esophagus as patient aspirated. Esophagus and swallowing function: As the patient swallowed initially there was silent aspiration. No coughing was elicited during this examination. There was poor clearing of the barium residual from t he pharynx. No focal strictures were identified. FL/FL barium swallow [id number] IMPRESSION: 1. Limited esophagram due to silent aspiration. 2. Poor clearing of the barium from the pharynx increases the risk for additio nal aspiration.
== END 2021-08-17 08:30 | disposition home or self-care (01) ==
PROVIDERS: PCP Nurse Practitioner; Visit Provider Specialist
DX: R13.10 Dysphagia, unspecified (principal); Z86.73 Personal history of transient ischemic attack (TIA), and cerebral infarction without residual deficits
CPT/HCPCS: 74220

== ENCOUNTER 2021-09-10 12:03 | Outpatient (CLI) | payer OTHER, SELFPAY ==
--- NOTE | 2021-09-10 12:37 | ECG_ITS ---
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 Measurements Intervals [place] Rate: 52 P: -3 AK: 248 QRS: -26 QRSD: 157 T: -21 QT: 484 QTc: 453 Interpretive Statements SINUS BRADYCARDIA WITH FIRST DEGREE AV BLOCK WITH OCCASIONAL VENTRICULAR PREMATURE COMPLEXES BORDERLINE LEFT AXIS DEVIATION [QRS AXIS < -20] RIGHT BUNDLE BRANCH BLOCK [120+ ms QRS DURATION, UPRIGHT V1, 40+ ms S IN I/aVL/V4/V5/V6] Compared to ECG 11/29/2020 19:00:48 Sinus rhythm no longer present Left anterior fascicular block no longer present Left ventricular hypertrophy no longer present ST (T wave) deviation no longer present Electronically Signed On 09-10-2021 18:18:58 CDT by Niharika Garcia M.D. [email or web address]
== END 2021-09-10 12:04 | disposition home or self-care (01) ==
LOC: RT 12:07
PROVIDERS: PCP Nurse Practitioner; Visit Provider Specialist
DX: J37.0 Chronic laryngitis (principal); R13.12 Dysphagia, oropharyngeal phase; R22.1 Localized swelling, mass and lump, neck; R49.0 Dysphonia
CPT/HCPCS: 93005

== ENCOUNTER → 2021-12-07 13:06 | Outpatient (BNVA) | payer OTHER, SELFPAY | PROVIDERS: PCP Nurse Practitioner; Visit Provider Internal Medicine | DX: I11.0 Hypertensive heart disease with heart failure (principal); I50.9 Heart failure, unspecified; E11.9 Type 2 diabetes mellitus without complications; E78.5 Hyperlipidemia, unspecified; I25.119 Atherosclerotic heart disease of native coronary artery with unspecified angina pectoris; Z86.73 Personal history of transient ischemic attack (TIA), and cerebral infarction without residual deficits; E66.9 Obesity, unspecified; Z68.26 Body mass index [BMI] 26.0-26.9, adult; Z87.891 Personal history of nicotine dependence; Z79.84 Long term (current) use of oral hypoglycemic drugs | CPT/HCPCS: 99213 ==

== ENCOUNTER 2022-02-21 06:11 | Day surgery (SDC) | payer OTHER, SELFPAY ==
[2022-02-18 09:27] VITALS: BMI 27.3
[2022-02-21 06:27] VITALS: BP 156/80; PULSE 51; RESP 18; TEMP 36.6; O2SAT 97
[2022-02-21] MEDS: sodium chloride 0.9% 1,000 ML 30 ML IV (06:36)
--- NOTE | 2022-02-21 06:55 | ANES.PREANE2 ---
Pre-Anesthetic Assessment Height/Weight: Height 1.91 m Weight 99.337 kg Temp Pulse Resp BP Pulse Ox O2 Del Method 97.9 F 51 L 18 156/80 97 02/21/22 06:27 02/21/22 06:27 02/21/22 06:27 02/21/22 06:27 02/21/22 06:27 02/21/22 06:27 Preop Diagnosis: History of polyps Operation Date: 02/21/22 07:30 Proposed Procedures p Colonoscopy 67481,Z86.010(Not Applicable) - Pascual Bernabe MD Familial anesthetic complications: none Was Beta Sneha taken within 24 hours: N/A Was Clonidine taken within 24 hours: N/A Last intake: Intake Last Liquid Date 02/20/22 Last Liquid Time 20:00 Last Solid Date 02/19/22 Last Solid Time 00:00 Last Intake: 20:00 Social No alcohol and No tobacco Airway Submandibular: within normal limits Cervical ROM: within normal limits Mallampati: Class III Dentition: false History/ROS No significant history except as noted Pulmonary None reported CV/HEM Coronary Artery Disease (2010) None reported Hepatic Cirrhosis GI None reported Metabolic None reported Neuropsych Cerebrovascular Accident (november 04, 2020. slowed speech, trouble drinking water but can drink tea just fine. ) Anesthetic Plan ASA status: 3 Anesthesia: Anesthesia Evaluation and MAC Risk of > 500 ml blood loss (7ml/kg in children): No Medications/Allergies Home Medications Medication Instructions Recorded Confirmed Last Taken Type acetaminophen 500 mg tablet 500 mg PO Q4H PRN PAIN 06/10/19 02/21/22 06/20/19 History aspirin 325 mg tablet 325 mg PO DAILY PRN Pain 06/10/19 02/21/22 11/28/20 History nitroglycerin 0.4 mg sublingual 0.4 mg sublingual Q5M PRN chest 08/05/19 02/21/22 Unknown Rx tablet pain #20 tabs gabapentin 100 mg capsule 100 mg PO DAILY 06/08/21 02/21/22 02/14/22 History Allergies Allergy/AdvReac Type Severity Reaction Status Date / Time Penicillins AdvReac ADR-Cramping Verified 02/18/22 09:26 of the Muscles Current Medications Generic Name Dose Route Start Last Admin Trade Name Freq PRN Reason Stop Dose Admin Sodium Chloride 1,000 mls @ 30 mls/hr 02/21/22 06:15 02/21/22 06:36 Sodium Chloride 0.9% IV 02/22/22 06:14 30 mls/hr .Q24H RUSLAN Administration PFSH Anesthesia Medical History Arrhythmia Benign prostatic hyperplasia with lower urinary tract symptoms CAD (coronary artery disease) Chest pain CHF (congestive heart failure) Chronic pain Dehydration Diabetes mellitus Elevated bilirubin Extremity ischemia GERD (gastroesophageal reflux disease) H/O adenomatous polyp of colon Hepatic encephalopathy Hyperbilirubinemia Hyperlipidemia Hypernatremia Hypertension Ischemic cardiomyopathy Liver cirrhosis Myocardial infarction Obesity Recent cerebrovascular accident (CVA) Status post replacement of knee joint Thrombocytopenia Surgical History Hx of appendectomy Hx of hernia repair Hx of knee surgery Post PTCA Family History Mother Cancer Denies family history of Diabetes CAD (coronary artery disease) Clotting disorder Dementia Hyperlipidemia Psychiatric illness Chronic kidney disease (CKD) Suicide Anesthesia complication Bleeding disorder Family history of premature coronary artery disease Lung disease Hypertension Stroke Social History Smoking and tobacco status: former smoker Alcohol intake: former Lives independently: Yes Household members: spouse Marital status: Current occupational status: retired Data Anesthesia Cardiac Studies: Echocardiogram Ultrasound 11/04/20 Sestamibi Stress Test (Cardiology) 10/29/19 Cardiac Event Monitor 12/04/20
--- NOTE | 2022-02-21 07:22 | W.PM.OPSFHP ---
Same Day Surgery H&P Indication for Procedure/HPI DATE OF PROCEDURE: February 21, 2022 CHIEF COMPLAINT/INDICATIONFOR SURGICAL PROCEDURE: History of polyps PREOP DIAGNOSIS: History of polyps PLANNED PROCEDURE: Operation Date: 02/21/22 07:30 Proposed Procedures p Colonoscopy 75410,Z86.010(Not Applicable) - Pascual Bernabe MD Medications/Allergies* Home Medications Medication Instructions Recorded Confirmed Type acetaminophen 500 mg tablet 500 mg PO Q4H PRN PAIN 06/10/19 02/21/22 History aspirin 325 mg tablet 325 mg PO DAILY PRN Pain 06/10/19 02/21/22 History gabapentin 100 mg capsule 100 mg PO DAILY 06/08/21 02/21/22 History Allergies/Adverse Reactions Allergy/AdvReac Type Severity Reaction Status Date / Time Penicillins AdvReac ADR-Cramping Verified 02/18/22 09:26 of the Muscles Current Medications: Generic Name Dose Route Start Last Admin Trade Name Freq PRN Reason Stop Dose Admin Sodium Chloride 1,000 mls @ 30 mls/hr 02/21/22 06:15 02/21/22 06:36 Sodium Chloride 0.9% IV 02/22/22 06:14 30 mls/hr .Q24H RUSLAN Administration Pertinent History/Comorbid Conditions* Medical History (Updated 06/08/21 @ 14:13 by ALVARO Nair) Arrhythmia Benign prostatic hyperplasia with lower urinary tract symptoms CAD (coronary artery disease) Chest pain CHF (congestive heart failure) Chronic pain Dehydration Diabetes mellitus Elevated bilirubin Extremity ischemia GERD (gastroesophageal reflux disease) H/O adenomatous polyp of colon Hepatic encephalopathy Hyperbilirubinemia Hyperlipidemia Hypernatremia Hypertension Ischemic cardiomyopathy Liver cirrhosis Myocardial infarction Obesity Recent cerebrovascular accident (CVA) Status post replacement of knee joint Thrombocytopenia Surgical History (Updated 12/04/20 @ 00:01 by ) Hx of appendectomy Hx of hernia repair Hx of knee surgery Post PTCA Family History (Updated 08/05/19 @ 15:11 by Miroslava Landeros RN) Cancer Mother Denies family history of Diabetes CAD (coronary artery disease) Clotting disorder Dementia Hyperlipidemia Psychiatric illness Chronic kidney disease (CKD) Suicide Anesthesia complication Bleeding disorder Family history of premature coronary artery disease Lung disease Hypertension Stroke Social History Smoking and tobacco status: former smoker Alcohol intake: former Lives independently: Yes Household members: spouse Marital status: Current occupational status: retired Pertinent Exam Findings alert, oriented x 3, clear to auscultation bilaterally, regular rate & rhythm, operative site marked and procedure specific exam findings Recommendations Surgery/Procedure today Coding Level of Care Code Acute 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
[2022-02-21 07:39] VITALS: BP 115/61; PULSE 54; RESP 18; TEMP 36.1; O2SAT 96
[2022-02-21 08:01] VITALS: BP 130/58; PULSE 49; RESP 18; O2SAT 96
--- NOTE | 2022-02-21 08:25 | ANE.PACU2 ---
Inpatient post-anesthesia follow up: Airway intact: Yes Vital signs: Temperature 97.0 F Pulse Rate 49 Respiratory Rate 18 Blood Pressure 130/58 Pulse Oximetry 96 Oxygen Delivery Me thod Room Air Oxygen Flow Rate Fraction of Inspir ed Oxygen Hydration adequate: Yes Nausea and vomiting: No Pain level: 1 Mental status: Baseline
== END 2022-02-21 08:09 | disposition home or self-care (01) ==
PROVIDERS: PCP Nurse Practitioner; Visit Provider Internal Medicine
PROC: 0DJD8ZZ Inspection of Lower Intestinal Tract, Via Natural or Artificial Opening Endoscopic (ICD-10-PCS; CPT 45378; principal; 2022-02-21 07:30)
DX: D12.3 Benign neoplasm of transverse colon (principal); K57.30 Diverticulosis of large intestine without perforation or abscess without bleeding; Z86.010 Personal history of colon polyps; Z79.82 Long term (current) use of aspirin; N40.0 Benign prostatic hyperplasia without lower urinary tract symptoms; I25.10 Atherosclerotic heart disease of native coronary artery without angina pectoris; E11.9 Type 2 diabetes mellitus without complications; I11.0 Hypertensive heart disease with heart failure; I50.9 Heart failure, unspecified; K21.9 Gastro-esophageal reflux disease without esophagitis; E78.5 Hyperlipidemia, unspecified; I25.2 Old myocardial infarction; E66.9 Obesity, unspecified; Z68.27 Body mass index [BMI] 27.0-27.9, adult; Z86.73 Personal history of transient ischemic attack (TIA), and cerebral infarction without residual deficits; Z87.891 Personal history of nicotine dependence; Z95.5 Presence of coronary angioplasty implant and graft
CPT/HCPCS: 45385; 88305; J2704; J7030

== ENCOUNTER → 2022-06-07 14:11 | Outpatient (BNVA) | payer OTHER, SELFPAY | PROVIDERS: PCP Nurse Practitioner; Visit Provider Internal Medicine | DX: I11.0 Hypertensive heart disease with heart failure (principal); I50.9 Heart failure, unspecified; E66.9 Obesity, unspecified; Z68.28 Body mass index [BMI] 28.0-28.9, adult; E11.9 Type 2 diabetes mellitus without complications; Z79.84 Long term (current) use of oral hypoglycemic drugs; E78.5 Hyperlipidemia, unspecified; I25.119 Atherosclerotic heart disease of native coronary artery with unspecified angina pectoris; I25.2 Old myocardial infarction; Z87.891 Personal history of nicotine dependence | CPT/HCPCS: 99214 ==

== ENCOUNTER 2022-08-18 07:36 | Outpatient (CLI) | payer OTHER, SELFPAY ==
--- NOTE | 2022-08-18 07:57 | USCV_ITS ---
Galen Macdonald Age: 72 Gender: M : 1950 Exam Date: 08/18/2022 08:16 Ordering Phys: Ines Dooley Technologist: MARCO [place]am Location[place] [facility] [place] Indication: AAA SCREENING HISTORY: Diameter (cm) AP x Transverse x Length Velocity (cm/s) Waveform Prox Aorta: 2.45 x 2.26 x 78.80 Triphasic Mid Aorta: 1.95 x 1.97 x 60.30 Triphasic Distal Aorta: 1.95 x 1.93 x 93.50 Triphasic Right Iliac Prox: 0.98 x 1.05 x 102.10 Triphasic Left Iliac Prox: 1.14 x 1.04 x 92.40 Triphasic Stent Prox Landing x x Aneurysmal Sac Max x x Lt Lat Sac Dim Rt Lat Sac Dim Stent Dist Landing x x Right Iliac Stent x x Left Iliac Stent x x Right Renal Art Left Renal Art FINDINGS: CONCLUSIONS No evidence of abdominal aortic or bilateral iliac aneurysm. Mild arteriovascular disease within the abdominal aorta. Tong Hardy MD (Electronically Signed) Final Date: 18 August 2022 11:03 S
== END 2022-08-18 07:37 | disposition home or self-care (01) ==
PROVIDERS: PCP Nurse Practitioner; Visit Provider Nurse Practitioner
DX: Z13.6 Encounter for screening for cardiovascular disorders (principal)
CPT/HCPCS: 76706

== ENCOUNTER 2023-07-04 04:05 | Emergency (ER) | payer OTHER, SELFPAY ==
[2023-07-04 04:11] VITALS: BP 147/103; PULSE 117; RESP 20; TEMP 36.7; O2SAT 97; BMI 27.5
--- NOTE | 2023-07-04 04:24 | ED_ITS ---
HPI - General Adult 2 General: Chief complaint: Urogenital-Male Stated complaint: cant void Time Seen by Provider: 07/04/23 04:08 History of Present Illness: Patient presents to the ER with the inability to void. Patient states he woke up about 2 AM this morning and had the urge to pee but was unable to urinate and waited around a little bit and decided to come to the ER. Patient does take a prostate medicine but has never had a problem with voiding before. Patient had no burning frequency urgency or any other urinary symptoms yesterday or last night. Patient denies any nausea vomiting fever. Review of Systems 2 General: Reports: 10 or more systems reviewed and unremarkable except in HPI and below PFSH ED 2 PFSH: Medical History Hypernatremia Hepatic encephalopathy Liver cirrhosis Recent cerebrovascular accident (CVA) CHF (congestive heart failure) Extremity ischemia Arrhythmia Elevated bilirubin Dehydration Thrombocytopenia Hyperbilirubinemia Chest pain Ischemic cardiomyopathy Myocardial infarction Obesity Chronic pain Benign prostatic hyperplasia with lower urinary tract symptoms Hyperlipidemia GERD (gastroesophageal reflux disease) Status post replacement of knee joint Diabetes mellitus Hypertension CAD (coronary artery disease) H/O adenomatous polyp of colon Surgical History Hx of hernia repair Hx of knee surgery Hx of appendectomy Post PTCA Family History Mother Cancer Denies family history of Diabetes CAD (coronary artery disease) Clotting disorder Dementia Hyperlipidemia Psychiatric illness Chronic kidney disease (CKD) Suicide Anesthesia complication Bleeding disorder Family history of premature coronary artery disease Lung disease Hypertension Stroke Social History Smoking and tobacco/nicotine status: former use of tobacco/nicotine Alcohol intake: former Substance/Drug Use: never Lives independently: Yes Household members: spouse Marital status: Current occupational status: retired Physical Exam 2 Const: COMMON NORMALS: average body habitus, patient oriented x3, no limitations, healthy appearing, alert and well nourished HENMT: COMMON NORMALS: normocephalic, atraumatic, hearing grossly normal bilaterally, external ears normal, Normal external nose present, moist oral mucous membranes and oropharynx normal HEAD & SCALP: normocephalic and atraumatic NOSE: Normal external nose present EXTERNAL EAR: Yes external ears normal Neck/C-Spine: COMMON NORMALS: no JVD Chest: COMMONS NORMALS: normal inspection of the chest and normal palpation of entire chest wall Resp: COMMON NORMALS: normal respiratory effort, No retractions, No use of accessory muscles and clear to auscultation bilaterally AUSCULTATION: clear to auscultation bilaterally Cardio: COMMON NORMALS: no JVD, regular rhythm, S1 normal heart sound present, S2 normal heart sound present, No gallops present (Cardio), No clicks present (Cardio), No murmurs present (Cardio) and No rub (Cardio); negative for regular rate (Tachycardic) RATE: abnormal rate (Tachycardic) RHYTHM: regular rhythm HEART SOUNDS: S1 normal heart sound present and S2 normal heart sound present GI: COMMON NORMALS: Normal to inspection, nondistended, normoactive bowel sounds present, Soft to palpation, No hepatosplenomegaly present and no masses; negative for non-tender (Tender with palpation over the bladder) PALPATION: Y es Soft to palpation and Yes No hepatosplenomegaly present Neuro: COMMON NORMALS: patient oriented x3 SENSORIUM/ORIENTATION: Yes alert Course 2 Vital Signs: Vital signs: Vital Signs Temperature 98.0 F 07/04/23 05:46 Pulse Rate 87 07/04/23 05:46 Respiratory Rate 20 H 07/04/23 05:46 Blood Pressure 138/81 07/04/23 05:46 Pulse Oximetry 94 07/04/23 05:46 Oxygen Delivery Me thod Room Air 07/04/23 04:39 [facility] - General Adult Medical Decision Making Presents to the ER with acute urinary retention. Bladder scan revealed approximately 700 cc of urine. Salamanca catheter was placed which made the patient feel immediately better. Lab work was obtained. Patient will be discharged home with Salamanca catheter and should follow-up with PCP for further evaluation and treatment and possible Salamanca removal. Differential Diagnosis Acute urinary retention Medical Records I reviewed the patient's medical records. Lab Data I reviewed the patient's lab results. 07/04/23 05:03 07/04/23 05:03 Laboratory Results WBC 3.96 10^3/uL (3.29-11.43) 07/04/23 05:03 RBC 4.15 10^6/uL (3.85-5.65) 07/04/23 05:03 Hgb 12.70 g/dL (11.27-16.99) 07/04/23 05:03 Hct 36.3 % (37-53) L 07/04/23 05:03 MCV 87.5 fl (82-101) 07/04/23 05:03 MCH 30.6 pg (27-33) 07/04/23 05:03 MCHC 35.0 g/dL (30-55) 07/04/23 05:03 RDW 13.4 % (12.1-15.1) 07/04/23 05:03 Plt Count 52 10^3/cmm (157-399) L 07/04/23 05:03 MPV 10.9 fL (7.4-10.4) H 07/04/23 05:03 Neut % (Auto) 75.9 % 07/04/23 05:03 Lymph % (Auto) 17.2 % 07/04/23 05:03 [place] % (Auto) 5.6 % 07/04/23 05:03 Eos % (Auto) 0.5 % 07/04/23 05:03 Baso % (Auto) 0.5 % 07/04/23 05:03 Neut # (Auto) 3.01 10^3/uL (1.8-7.7) 07/04/23 05:03 Lymph # (Auto) 0.7 10^3/uL (0.8-4.8) L 07/04/23 05:03 [place] # (Auto) 0.2 10^3/uL (0.2-0.9) 07/04/23 05:03 Eos # (Auto) 0.0 10^3/uL (0.0-0.8) 07/04/23 05:03 Baso # (Auto) 0.0 10^3/uL (0.0-0.1) 07/04/23 05:03 Nucleated RBC % (auto) 0 % 07/04/23 05:03 Nucleated RBCs # 0.0 /100WBC 07/04/23 05:03 Sodium 138 mmol/L (136-145) 07/04/23 05:03 Potassium 3.4 mmol/L (3.5-5.1) L 07/04/23 05:03 Chloride 103 mmol/L (98-107) 07/04/23 05:03 Carbon Dioxide 25 mmol/L (22-29) 07/04/23 05:03 Anion Gap 13.4 (5-19) 07/04/23 05:03 BUN 12 mg/dL (8-23) 07/04/23 05:03 Creatinine 1.3 mg/dL (0.7-1.2) H 07/04/23 05:03 GFR Calculation Not Reportable 07/04/23 05:03 Glucose 215 mg/dL (65-115) H 07/04/23 05:03 Calculated Osmolality 292 mOsm/kg (285-295) 07/04/23 05:03 Calcium 8.8 mg/dL (8.5-10.5) 07/04/23 05:03 Total Bilirubin 1.2 mg/dL (0.15-1.2) 07/04/23 05:03 AST 11 U/L (0-40) 07/04/23 05:03 ALT < 5 U/L (0-41) 07/04/23 05:03 Alkaline Phosphatase 78 U/L (40-130) 07/04/23 05:03 Total Protein 6.3 g/dL (6.6-8.7) L 07/04/23 05:03 Albumin 3.4 g/dL (3.5-5.2) L 07/04/23 05:03 Globulin 2.9 g/dL (1.3-4.6) 07/04/23 05:03 Urine Color Yellow (Yellow) 07/04/23 04:36 Urine Appearance Cloudy (CLEAR) A 07/04/23 04:36 Urine pH 6 (5-7) 07/04/23 04:36 Ur Specific [place] 1.015 (1.005-1.030) 07/04/23 04:36 Urine Protein 2+ (Negative) H 07/04/23 04:36 Urine Glucose (UA) Trace (Normal) H 07/04/23 04:36 Urine Ketones Negative (Negative) 07/04/23 04:36 Urine Blood 3+ (Negative) H 07/04/23 04:36 Urine Nitrate Negative (Negative) 07/04/23 04:36 Urine Bilirubin Neg (Negative) 07/04/23 04:36 Urine Urobilinogen Neg mg/dL (Negative) 07/04/23 04:36 Ur Leukocyte Esterase Negative (Negative) 07/04/23 04:36 Urine RBC 80-100 /hpf (0-2) H 07/04/23 04:36 Urine WBC None /hpf (0-5) 07/04/23 04:36 Ur Squamous Epith Cells None /hpf (0-5) 07/04/23 04:36 Amorphous Sediment Not Reportable 07/04/23 04:36 Urine Bacteria 2+ /hpf (NONE) H 07/04/23 04:36 All radiology interpretation(s) finalized by discharge Discharge Plan Discharge Patient Disposition: Home Clinical Impression: Acute retention of urine Condition: Stable Prescriptions: No Action nitroglycerin 0.4 mg tablet, sublingual 0.4 mg SUBLINGUAL Q5M PRN (Reason: chest pain) Qty: 20 3RF Rx Instructions: until response; do not exceed 3 doses per episode aspirin 325 mg tablet 325 mg PO DAILY PRN (Reason: Pain) acetaminophen 500 mg tablet 500 mg PO Q4H PRN (Reason: PAIN) gabapentin 100 mg capsule 100 mg PO DAILY tamsulosin [Flomax] 0.4 mg capsule 0.4 mg PO DAILY Discharge Orders: Discharge ED (Routine); Ordered 07/04/23 Ordered By: Nawaf Meredith Referrals: Ines Dooley FNP [Primary Care Provider] - 1 week Patient Instructions: Urinary Retention in Men (ED), Thrombocytopenia (ED) Activity Restrictions/Additional Instructions: Please follow-up with your family practice physician within the next 7 days for probable Salamanca catheter removal and further evaluation and treatment. Coding Level of Care Code ED Remote Medical Coder for Maicol Douglas
[2023-07-04 04:39] VITALS: BP 138/81; PULSE 87; O2SAT 94
[2023-07-04 04:48] LABS: Bilirubin Urine Neg (Negative); Blood Urine 3+ (Negative); Glucose Urine UA Trace (Normal); Ketones Urine Negative (Negative); Nitrate Urine Negative (Negative); Protein Urine 2+ (Negative); Specific Gravity, Urine 1.015 (1.005-1.030); Urine Appearance Cloudy (CLEAR); Urine Color Yellow (Yellow); Urobilinogen Urine Neg (Negative); pH Urine 6 (5-7)
[2023-07-04 04:49] LABS: Add Urine Culture? Yes; Add Urine Microscopic? YES; Bacteria Urine 2+ /hpf; Leukocyte Esterase Urine Negative (Negative); RBC Urine 80-100 /hpf (0-2)
[2023-07-04 05:08] LABS: Basophils % 0.5 %; Eosinophils % 0.5 %; Hematocrit 36.3 % (37-53); Lymphocytes # 0.7 10^3/uL (0.8-4.8); Lymphocytes % 17.2 %; Mean Corpuscular Hemoglobin 30.6 pg (27-33); Mean Corpuscular Volume 87.5 fl (82-101); Mean Platelet Volume 10.9 fL (7.4-10.4); Monocytes # 0.2 10^3/uL (0.2-0.9); Monocytes % 5.6 %; Neutrophils # 3.01 10^3/uL (1.8-7.7); Neutrophils % 75.9 %; Nucleated Red Blood Cells % 0 %; Platelet Count 52 10^3/cmm (157-399); Red Blood Count 4.15 10^6/uL (3.85-5.65); Red Cell Distribution Width 13.4 % (12.1-15.1); White Blood Count 3.96 10^3/uL (3.29-11.43)
[2023-07-04 05:29] LABS: Alanine Aminotransferase < 5 U/L (0-41); Albumin Level 3.4 g/dL (3.5-5.2); Alkaline Phosphatase 78 U/L (40-130); Anion Gap 13.4 (5-19); Aspartate Amino Transferase 11 U/L (0-40); Blood Urea Nitrogen 12 mg/dL (8-23); Calcium 8.8 mg/dL (8.5-10.5); Carbon Dioxide 25 mmol/L (22-29); Chloride 103 mmol/L (98-107); Globulin 2.9 g/dL (1.3-4.6); Glucose 215 mg/dL (65-115); Osmolality Calculated 292 mOsm/kg (285-295); Potassium 3.4 mmol/L (3.5-5.1); Sodium 138 mmol/L (136-145); Total Bilirubin 1.2 mg/dL (0.15-1.2); Total Protein 6.3 g/dL (6.6-8.7)
[2023-07-04 05:46] VITALS: BP 138/81; PULSE 87; RESP 20; TEMP 36.7; O2SAT 94
== END 2023-07-04 05:48 | disposition home or self-care (01) ==
PROVIDERS: Emergency Provider Emergency Medicine; PCP Nurse Practitioner
DX: R33.9 Retention of urine, unspecified (principal); Z79.82 Long term (current) use of aspirin; Z87.891 Personal history of nicotine dependence; I25.5 Ischemic cardiomyopathy; I11.0 Hypertensive heart disease with heart failure; I50.9 Heart failure, unspecified; I25.2 Old myocardial infarction; E78.5 Hyperlipidemia, unspecified; E11.9 Type 2 diabetes mellitus without complications; I25.10 Atherosclerotic heart disease of native coronary artery without angina pectoris
CPT/HCPCS: 36415; 51702; 51798; 80053; 81001; 85025; 87086; 99283

== ENCOUNTER → 2023-08-08 14:45 | Outpatient (BNVA) | payer OTHER, SELFPAY | PROVIDERS: PCP Nurse Practitioner; Visit Provider Internal Medicine | DX: I11.0 Hypertensive heart disease with heart failure (principal); I50.9 Heart failure, unspecified; E66.9 Obesity, unspecified; Z68.28 Body mass index [BMI] 28.0-28.9, adult; E11.9 Type 2 diabetes mellitus without complications; E78.5 Hyperlipidemia, unspecified; I25.119 Atherosclerotic heart disease of native coronary artery with unspecified angina pectoris; Z86.73 Personal history of transient ischemic attack (TIA), and cerebral infarction without residual deficits; Z87.891 Personal history of nicotine dependence | CPT/HCPCS: 99214 ==

== ENCOUNTER 2023-10-20 08:29 | Outpatient (CLI) | payer OTHER, SELFPAY ==
--- NOTE | 2023-10-20 08:34 | US_ITS ---
WS: [id number] RIGHT UPPER QUADRANT ULTRASOUND HISTORY: Cirrhosis COMPARISON: 02/27/2021, Liver: 16.6 cm in length. Difficult evaluation of the liver. The entire liver is not well visualized. Moderate coarse echotexture with cirrhotic appearance. No mass. Portal Vein: Normal hepatopetal flow with monophasic waveform. Gallbladder: Normally distended. Cholelithiasis without acute cholecystitis. No wall thickening. CBD: 0.4 cm Pancreas: Nonvisualized. Right kidney: 10.4 cm in length. Cortical cyst measures 2.5 x 2.7 x 2.3 cm. The location is not other henriquez documented. Aorta and IVC: Not visualized. No ascites. US/US abdomen limited [id number] IMPRESSION: 1. Technically difficult and limited evaluation of the RIGHT upper quadrant. 2. Cholelithiasis without acute cholecystitis. 3. Cirrhotic liver. 4. RIGHT renal cyst.
== END 2023-10-20 08:30 | disposition home or self-care (01) ==
LOC: RAD 08:29
PROVIDERS: PCP Nurse Practitioner; Visit Provider Internal Medicine Gastroenterology
DX: K74.60 Unspecified cirrhosis of liver (principal); K80.20 Calculus of gallbladder without cholecystitis without obstruction; N28.1 Cyst of kidney, acquired
CPT/HCPCS: 76705

== ENCOUNTER → 2024-02-05 14:00 | Outpatient (BNVA) | payer OTHER, SELFPAY | PROVIDERS: PCP Nurse Practitioner; Visit Provider Internal Medicine | DX: I11.0 Hypertensive heart disease with heart failure (principal); I50.9 Heart failure, unspecified; E66.9 Obesity, unspecified; E11.9 Type 2 diabetes mellitus without complications; E78.5 Hyperlipidemia, unspecified; I25.119 Atherosclerotic heart disease of native coronary artery with unspecified angina pectoris; Z86.73 Personal history of transient ischemic attack (TIA), and cerebral infarction without residual deficits; Z68.26 Body mass index [BMI] 26.0-26.9, adult | CPT/HCPCS: 99214 ==

== ENCOUNTER 2024-02-22 10:25 | Outpatient (CLI) | payer OTHER, SELFPAY ==
[2024-02-22 11:37] LABS: Anion Gap 12.9 (5-19); Blood Urea Nitrogen 18 mg/dL (8-23); Calcium 8.6 mg/dL (8.5-10.5); Carbon Dioxide 28 mmol/L (22-29); Chloride 103 mmol/L (98-107); Glucose 115 mg/dL (65-115); NT Pro B Type Natriuretic Pept 11784 pg/mL (0-450); Osmolality Calculated 293 mOsm/kg (285-295); Potassium 3.9 mmol/L (3.5-5.1); Sodium 140 mmol/L (136-145)
== END 2024-02-22 10:26 | disposition home or self-care (01) ==
LOC: LAB 10:26
PROVIDERS: PCP Nurse Practitioner; Visit Provider Internal Medicine
DX: I10 Essential (primary) hypertension (principal); I50.9 Heart failure, unspecified; I25.119 Atherosclerotic heart disease of native coronary artery with unspecified angina pectoris
CPT/HCPCS: 36415; 80048; 83880

== ENCOUNTER 2024-03-13 13:31 | Outpatient (CLI) | payer OTHER, SELFPAY ==
--- NOTE | 2024-03-13 14:15 | USCV_ITS ---
Galen Macdonald Age: 73 Gender: M : 1950 Exam Date: 03/13/2024 14:21 Ordering Phys: Tan Burns M.D ([email or web address]) Technologist: MARCO Exam Location: [facility] – [place] Indication: SWELLING BP: 131 / 57 HR: 59 Rhythm: Sinus Technical Quality: Adequate MEASUREMENTS (Male / Female) Normal Values 2D ECHO LV Diastolic Diameter PLAX 7.1 cm 4.2 - 5.9 / 3.9 - 5.3 cm IVS Diastolic Thickness 1.3 cm 0.6 - 1.0 / 0.6 - 0.9 cm IVS Systolic Thickness 2.2 cm LVPW Diastolic Thickness 2.1 cm 0.6 - 1.0 / 0.6 - 0.9 cm LVPW Systolic Thickness 3.0 cm LVOT Diameter 2.0 cm LV Ejection Fraction 2D Teich 62.0 % LV Ejection Fraction MOD 4C 54.8 % LV Ejection Fraction MOD 2C 57.6 % LV Ejection Fraction 2C AL 58.6 % LA Diameter 4.9 cm RA Systolic Volume 4C AL 40.9 ml RA Systolic Volume 4C MOD 40.7 ml LA Sys Volume AL 53.4 cm cubed LA Sys Volume Index AL 23.4 cm cubed/m squared Aorta at Sinotubular Diameter 2.2 cm IVC Diameter 2.1 cm M-MODE LA Ao Ratio MM 1.3 AV Cusp Separation MM 1.9 cm DOPPLER AV Peak Velocity 123.0 cm/s LVOT Peak Velocity 95.0 cm/s AV Area Cont Eq vti 2.5 cm squared AV Area Cont Eq pk 2.5 cm squared MV Peak Velocity 70.0 cm/s MV Area PHT 3.0 cm squared Mitral E to A Ratio 251.0 TR Peak Velocity 125.0 cm/s TR Peak Gradient 6.3 mmHg TR Mean Velocity 109.0 cm/s TR Mean Gradient 5.0 mmHg TR Velocity Time Integral 33.5 cm TV Peak E Velocity 41.0 cm/s Right Atrial Pressure 3.0 mmHg Pulmonary Artery Systolic Pressu 9.3 mmHg PV Peak Velocity 113.0 cm/s RV Ejection Time 0.4 s FINDINGS Left Ventricle Normal left ventricular size, systolic function and wall thickness, with no regional wall motion abnormalities. Left ventricular ejection fraction is estimated at 55 %. Grade I/IV diastolic dysfunction (abnormal relaxation filling pattern), normal to mildly elevated filling pressures. Right Ventricle The right ventricle is normal in size and function. Right Atrium The right atrium is normal in size. Left Atrium The left atrium is normal in size. Mitral Valve Thickened mitral valve. No mitral valve stenosis. Trace mitral valve regurgitation. Aortic Valve Structurally normal aortic valve without significant sclerosis or stenosis. There is no aortic regurgitation. Tricuspid Valve Structurally normal tricuspid valve without significant stenosis or regurgitation. Pulmonary artery systolic pressure is normal. Pulmonic Valve Structurally normal pulmonic valve without significant stenosis. There is no pulmonic regurgitation. Pericardium Normal pericardium without effusion. Aorta Normal ascending aorta dimension. IVC The inferior vena cava appears normal. CONCLUSIONS Normal left ventricular size, systolic function and wall thickness, with no regional wall motion abnormalities. Left ventricular ejection fraction is estimated at 55 %. Grade I/IV diastolic dysfunction (abnormal relaxation filling pattern), normal to mildly elevated filling pressures. No significant valve abnormalities. There is no pericardial effusion. Pulmonary artery systolic pressure is within normal limits. Right atrial pressure is around 5 mm of mercury. Simone Amador MD (Electronically Signed) Final Date: 15 March 2024 21:07 S
== END 2024-03-13 13:32 | disposition home or self-care (01) ==
LOC: RAD 13:32
PROVIDERS: PCP Nurse Practitioner; Visit Provider Internal Medicine
DX: I50.30 Unspecified diastolic (congestive) heart failure (principal); I34.81 Nonrheumatic mitral (valve) annulus calcification; R06.02 Shortness of breath; R07.9 Chest pain, unspecified
CPT/HCPCS: 93306

== ENCOUNTER 2024-03-18 10:17 | Outpatient (CLI) | payer OTHER, SELFPAY ==
[2024-03-18 11:07] LABS: Anion Gap 12.6 (5-19); Blood Urea Nitrogen 25 mg/dL (8-23); Calcium 8.5 mg/dL (8.5-10.5); Carbon Dioxide 28 mmol/L (22-29); Chloride 104 mmol/L (98-107); Glucose 110 mg/dL (65-115); NT Pro B Type Natriuretic Pept 7229 pg/mL (0-450); Osmolality Calculated 297 mOsm/kg (285-295); Potassium 3.6 mmol/L (3.5-5.1); Sodium 141 mmol/L (136-145)
== END 2024-03-18 10:18 | disposition home or self-care (01) ==
PROVIDERS: PCP Nurse Practitioner; Visit Provider Internal Medicine
DX: I10 Essential (primary) hypertension (principal); I25.119 Atherosclerotic heart disease of native coronary artery with unspecified angina pectoris; I50.9 Heart failure, unspecified
CPT/HCPCS: 36415; 80048; 83880

== ENCOUNTER 2024-04-18 09:11 | Outpatient (CLI) | payer OTHER, SELFPAY ==
[2024-04-18 10:09] LABS: Anion Gap 8.1 (5-19); Blood Urea Nitrogen 14 mg/dL (8-23); Calcium 8.8 mg/dL (8.5-10.5); Carbon Dioxide 30 mmol/L (22-29); Chloride 109 mmol/L (98-107); Glucose 102 mg/dL (65-115); Osmolality Calculated 297 mOsm/kg (285-295); Potassium 4.1 mmol/L (3.5-5.1); Sodium 143 mmol/L (136-145)
== END 2024-04-18 09:12 | disposition home or self-care (01) ==
LOC: LAB 09:12
PROVIDERS: PCP Nurse Practitioner; Visit Provider Internal Medicine Cardiovascular Disease
DX: I10 Essential (primary) hypertension (principal); I25.119 Atherosclerotic heart disease of native coronary artery with unspecified angina pectoris
CPT/HCPCS: 36415; 80048

== ENCOUNTER → 2024-05-07 14:53 | Outpatient (BNVA) | payer OTHER, SELFPAY | PROVIDERS: PCP Nurse Practitioner; Visit Provider Internal Medicine | DX: I11.0 Hypertensive heart disease with heart failure (principal); I50.9 Heart failure, unspecified; I25.119 Atherosclerotic heart disease of native coronary artery with unspecified angina pectoris; E66.9 Obesity, unspecified; E11.9 Type 2 diabetes mellitus without complications; E78.5 Hyperlipidemia, unspecified; Z87.891 Personal history of nicotine dependence; Z86.73 Personal history of transient ischemic attack (TIA), and cerebral infarction without residual deficits; Z68.26 Body mass index [BMI] 26.0-26.9, adult | CPT/HCPCS: 36415; 80048; 83880; 99214 ==

== ENCOUNTER 2024-05-20 10:48 | Inpatient (IN) | payer OTHER, MEDICARE, SELFPAY ==
[2024-05-20] VITALS (8 sets, daily range): BP systolic 133–149; BP diastolic 70–82; PULSE 59–102; RESP 13–18; TEMP 36.6–36.7; O2SAT 96–99; BMI 26.4
--- NOTE | 2024-05-20 12:47 | XRR_ITS ---
PROCEDURE INFORMATION: Exam: XR Chest Exam date and time: 05/20/2024 1:08 PM Age: 74 years old Clinical indication: Cough and dyspnea; Additional info: Dyspnea/cough TECHNIQUE: Imaging protocol: Radiologic exam of the chest. Views: 1 view. COMPARISON: CR (CHEST, ) 11/29/2020 5:20 PM FINDINGS: Lungs: Questionable left basilar airspace opacity. Pleural spaces: Questionable left pleural effusion. No distinct pneumothorax. Heart/Mediastinum: Cardiomediastinal silhouette is midline and normal in size. Vasculature: Mild calcific disease of the aortic knob. Bones/joints: No distinct acute osseous findings. XR/XR chest 1V portable [id number] IMPRESSION: 1. Questionable left basilar airspace opacity. This may be artifactual or may represent atelectasis or infiltrate. 2. Questionable left pleural effusion.
--- NOTE | 2024-05-20 12:47 | ED_ITS ---
HPI - Extremity Problem 2 General: Chief complaint: Extremity Problem,Nontraumatic Stated complaint[place] [facility] possible [place]/c & holding Fluid Time Seen by Provider: 05/20/24 12:40 History of Present Illness: 74-year-old male presents to the emergen cy room with complaints of swelling in his lower extremities and pain in his left great toe. No fever sweats or chills does have some exertional dyspnea but no orthopnea. Associated symptoms: Deny chest pain, fever(s) or rash Related Data Home Medications Medication Instructions Recorded Confirmed acetaminophen 500 mg tablet 500 mg PO Q4H PRN PAIN 06/10/19 05/20/24 tamsulosin 0.4 mg capsule (Flomax) 0.4 mg PO 08/08/23 05/21/24 cholecalciferol (vitamin D3) 50 50 mcg PO DAILY 05/20/24 05/20/24 mcg (2,000 unit) capsule (Vitamin D3) folic acid 1 mg tablet 1 mg PO DAILY 05/20/24 05/20/24 lisinopril 10 mg tablet 10 mg PO DAILY 05/20/24 05/20/24 omeprazole 20 mg tablet,delayed 20 mg PO BID 05/20/24 05/20/24 release potassium chloride 20 mEq 10 meq PO DAILY 05/20/24 05/20/24 tablet,extended release Previous Rx's Medication Instructions Recorded nitroglycerin 0.4 mg sublingual 0.4 mg sublingual Q5M PRN chest 08/05/19 tablet pain #20 tabs Allergies Allergy/AdvReac Type Severity Reaction Status Date / Time Penicillins AdvReac ADR-Cramping Verified 05/07/24 16:03 of the Muscles Review of Systems 2 Const: Denies: fever(s) or chills Card: Reports: swelling of feet/ankles and dyspnea on exertion; Denies: chest pain Resp: Denies: dyspnea GI: Denies: abdominal pain : Denies: dysuria, urinary frequency or urinary urgency Musc: Reports: joint pain (Left great toe); Denies: neck pain or back pain Skin/Breast: Denies: rash PFSH ED 2 PFSH: Medical History Hypernatremia Hepatic encephalopathy Liver cirrhosis Recent cerebrovascular accident (CVA) CHF (congestive heart failure) Extremity ischemia Arrhythmia Elevated bilirubin Dehydration Thrombocytopenia Hyperbilirubinemia Chest pain Ischemic cardiomyopathy Myocardial infarction Obesity Chronic pain Benign prostatic hyperplasia with lower urinary tract symptoms Hyperlipidemia GERD (gastroesophageal reflux disease) Status post replacement of knee joint Diabetes mellitus Hypertension CAD (coronary artery disease) H/O adenomatous polyp of colon Surgical History Hx of hernia repair Hx of knee surgery Hx of appendectomy Post PTCA Family History Mother Cancer Denies family history of Diabetes CAD (coronary artery disease) Clotting disorder Dementia Hyperlipidemia Psychiatric illness Chronic kidney disease (CKD) Suicide Anesthesia complication Bleeding disorder Family history of premature coronary artery disease Lung disease Hypertension Stroke Social History Smoking and tobacco/nicotine status: former use of tobacco/nicotine Alcohol intake: former Substance/Drug Use: never Lives independently: Yes Household members: spouse Marital status: Current occupational status: retired Physical Exam 2 Const: COMMON NORMALS: no acute distress GENERAL APPEARANCE: cooperative and comfortable ORIENTATION/CONSCIOUSNESS: Yes awake, Yes oriented to person, Yes oriented to place and Yes oriented to time HENMT: COMMON NORMALS: normocephalic, atraumatic and hearing grossly normal bilaterally HEAD & SCALP: normocephalic and atraumatic Resp: COMMON NORMALS: normal respiratory effort, No retractions, No use of accessory muscles and clear to auscultation bilaterally AUSCULTATION: clear to auscultation bilaterally Cardio: COMMON NORMALS: regular rate, regular rhythm and No murmurs present (Cardio) RATE: regular rate RHYTHM: regular rhythm GI: COMMON NORMALS: Soft to palpation and No hepatosplenomegaly present A USCULTATION: Yes normoactive bowel sounds PALPATION: Yes Soft to palpation, No Tenderness to palpation present (GI), No Guarding due to palpation present (GI) and Yes No hepatosplenomegaly present Extremity: OTHER: Exquisite tenderness with palpation of the left great toe there is some mild cellulitis around the cuticle. No evidence of paronychia. No active drainage. Examination lower extremities the edema extends to the lateral of the malleolus. No pitting edema more proximal no evidence of DVT based on exam Neuro: SENSORIUM/ORIENTATION: Yes oriented to person, Yes oriented to place and Yes oriented to time Skin: COMMON NORMALS: no rashes or lesions noted GENERAL SKIN EXAM: no rashes or lesions noted Course 2 Vital Signs: Vital signs: Vital Signs Temperature 98.9 F 05/24/24 04:00 Pulse Rate 47 L 05/24/24 06:00 Respiratory Rate 13 05/24/24 04:00 Blood Pressure 130/64 05/24/24 04:00 Pulse Oximetry 90 05/24/24 04:00 Oxygen Delivery Me thod Room Air 05/24/24 04:00 MDM - Extremity (Nontraumatic) Medical Decision Making Mild acute kidney injury with cellulitis and decompensated CHF will place in observation with hospitalist. . Patient will need further evaluation and adjustment of meds regarding his congestive heart failure. Lab Data 05/24/24 05:35 05/24/24 05:35 Radiology Impressions Chest X-Ray 05/20/24 12:47 IMPRESSION: 1. Questionable left basilar airspace opacity. This may be artifactual or may represent atelectasis or infiltrate. 2. Questionable left pleural effusion. Foot X-Ray 05/20/24 13:00 IMPRESSION: 1. Mild soft tissue swelling about the forefoot. 2. No acute fracture or dislocation. Foot CT 05/21/24 00:01 IMPRESSION: 1. Marked soft tissue swelling along the dorsal aspect of the forefoot and circumferential about the ankle. 2. No acute fracture. 3. No cortical irregularity or medullary lucency to suggest osteomyelitis. Laboratory Results WBC 2.34 10^3/uL (3.29-11.43) L 05/21/24 03:50 RBC 3.94 10^6/uL (3.85-5.65) 05/21/24 03:50 Hgb 12.30 g/dL (11.27-16.99) 05/21/24 03:50 Hct 36.6 % (37-53) L 05/21/24 03:50 MCV 92.9 fl (82-101) 05/21/24 03:50 MCH 31.2 pg (27-33) 05/21/24 03:50 MCHC 33.6 g/dL (30-55) 05/21/24 03:50 RDW 13.4 % (12.1-15.1) 05/21/24 03:50 Plt Count 52 10^3/cmm (157-399) L 05/21/24 03:50 MPV 11.3 fL (7.4-10.4) H 05/21/24 03:50 Neut % (Auto) 77.8 % 05/21/24 03:50 Lymph % (Auto) 19.7 % 05/21/24 03:50 [place] % (Auto) 1.7 % 05/21/24 03:50 Eos % (Auto) 0.4 % 05/21/24 03:50 Baso % (Auto) 0.0 % 05/21/24 03:50 Neut # (Auto) 1.82 10^3/uL (1.8-7.7) 05/21/24 03:50 Lymph # (Auto) 0.5 10^3/uL (0.8-4.8) L 05/21/24 03:50 [place] # (Auto) 0.0 10^3/uL (0.2-0.9) L 05/21/24 03:50 Eos # (Auto) 0.0 10^3/uL (0.0-0.8) 05/21/24 03:50 Baso # (Auto) 0.0 10^3/uL (0.0-0.1) 05/21/24 03:50 Nucleated RBC % (auto) 0 % 05/21/24 03:50 Nucleated RBCs # 0.0 /100WBC 05/21/24 03:50 ESR < 1 mm/hr (0-10) 05/20/24 22:33 PT 16.30 SECONDS (12.1-14.9) H 05/20/24 13:42 INR 1.27 (0.8-1.2) H 05/20/24 13:42 APTT 32.6 SECONDS (23.9-36.7) 05/20/24 13:42 D-Dimer 1.27 ug/mLFEU (0-0.59) H 05/20/24 13:42 Sodium 139 mmol/L (136-145) 05/21/24 03:50 Potassium 4.0 mmol/L (3.5-5.1) 05/21/24 03:50 Chloride 101 mmol/L (98-107) 05/21/24 03:50 Carbon Dioxide 25 mmol/L (22-29) 05/21/24 03:50 Anion Gap 17.0 (5-19) 05/21/24 03:50 BUN 17 mg/dL (8-23) 05/21/24 03:50 Creatinine 1.3 mg/dL (0.7-1.2) H 05/21/24 03:50 GFR Calculation Not Reportable 05/21/24 03:50 Glucose 173 mg/dL (65-115) H 05/21/24 03:50 Estimat Average Glucose 97 05/21/24 03:50 Hemoglobin A1c 5.0 % (4.0-6.0) 05/21/24 03:50 Calculated Osmolality 294 mOsm/kg (285-295) 05/21/24 03:50 Calcium 8.9 mg/dL (8.5-10.5) 05/21/24 03:50 Phosphorus 3.1 mg/dL (2.5-4.5) 05/21/24 03:50 Magnesium 1.8 mg/dL (1.7-2.3) 05/21/24 03:50 Iron 58 ug/dL (59-158) L 05/20/24 13:42 TIBC 187 mcg/dl 05/20/24 13:42 % Saturation 31.0 % (20-50) 05/20/24 13:42 Unsat Iron Binding 129 ug/dL (112-347) 05/20/24 13:42 Total Bilirubin 1.6 mg/dL (0.15-1.2) H 05/21/24 03:50 AST 11 U/L (0-40) 05/21/24 03:50 ALT < 5 U/L (0-41) 05/21/24 03:50 Alkaline Phosphatase 79 U/L (40-130) 05/21/24 03:50 Ammonia 26 umol/L (16-60) 05/20/24 13:42 Creatine Kinase 46 U/L (39-308) 05/20/24 13:00 C-Reactive Protein 3.7 mg/L (0.0-4.9) 05/20/24 22:33 NT-Pro-B Natriuret Pep 99340 pg/mL (0-450) H 05/20/24 13:00 Total Protein 6.8 g/dL (6.6-8.7) 05/21/24 03:50 Albumin 3.5 g/dL (3.5-5.2) 05/21/24 03:50 Globulin 3.3 g/dL (1.3-4.6) 05/21/24 03:50 Triglycerides 67 mg/dL (0-150) 05/21/24 03:50 Cholesterol 155 mg/dL (0-200) 05/21/24 03:50 LDL Cholesterol, Calc 98 mg/dL (50-129) 05/21/24 03:50 HDL Cholesterol 44 mg/dL (60-100) L 05/21/24 03:50 LDL/HDL Ratio 2.23 RATIO (0.00-3.22) 05/21/24 03:50 Cholesterol/HDL Ratio 3.52 mg/dL (1.0-5.00) 05/21/24 03:50 Vitamin B12 357 pg/mL (232-1245) 05/20/24 13:42 Folate 5.1 ng/mL (4.5-32.2) 05/21/24 03:50 Procalcitonin 0.09 ng/mL (0-0.5) 05/21/24 03:50 TSH 0.73 uIU/mL (0.27-4.20) 05/20/24 13:42 Urine Color Yellow (Yellow) 05/20/24 13:52 Urine Appearance Clear (CLEAR) 05/20/24 13:52 Urine pH 6.5 (5-7) 05/20/24 13:52 Ur Specific [place] 1.016 (1.005-1.030) 05/20/24 13:52 Urine Protein 1+ (Negative) A 05/20/24 13:52 Urine Glucose (UA) Negative (Normal) 05/20/24 13:52 Urine Ketones Negative (Negative) 05/20/24 13:52 Urine Blood 1+ (Negative) A 05/20/24 13:52 Urine Nitrate Negative (Negative) 05/20/24 13:52 Urine Bilirubin Negative (Negative) 05/20/24 13:52 Urine Urobilinogen 2.0 mg/dL (Negative) H 05/20/24 13:52 Ur Leukocyte Esterase Negative (Negative) 05/20/24 13:52 Urine RBC 6-10 /hpf (0-2) 05/20/24 13:52 Urine WBC 0-5 /hpf (0-5) 05/20/24 13:52 Ur Squamous Epith Cells 0-5 /hpf (0-5) 05/20/24 13:52 Amorphous Sediment Not Reportable 05/20/24 13:52 Urine Bacteria None seen /hpf (NONE) 05/20/24 13:52 Hyaline Casts 0.81 /lpf 05/20/24 13:52 Nasal MRSA (PCR) Not detected (Negative) 05/20/24 18:40 Adenovirus (PCR) Not detected (NOT DETECT) 05/20/24 18:32 C. pneumoniae DNA (PCR) Not detected (NOT DETECT) 05/20/24 18:32 Coronavirus 229E (PCR) Detected (NOT DETECT) A 05/20/24 18:32 Human Metapneumovir PCR Not detected (NOT DETECT) 05/20/24 18:32 Influenza A (H1) PCR Not detected (NOT DETECT) 05/20/24 18:32 Influ A (H1/09) PCR Not detected (NOT DETECT) 05/20/24 18:32 Influenza A (H3) PCR Not detected (NOT DETECT) 05/20/24 18:32 Influenza Type A (PCR) Not detected (NOT DETECT) 05/20/24 18:32 Influenza Type B (PCR) Not detected (NOT DETECT) 05/20/24 18:32 M. pneumoniae (PCR) Not detected (NOT DETECT) 05/20/24 18:32 Parainfluenza 1 (PCR) Not detected (NOT DETECT) 05/20/24 18:32 Parainfluenza 2 (PCR) Not detected (NOT DETECT) 05/20/24 18:32 Parainfluenza 3 (PCR) Not detected (NOT DETECT) 05/20/24 18:32 Parainfluenza 4 (PCR) Not detected (NOT DETECT) 05/20/24 18:32 RSV Type A (PCR) Not detected (NOT DETECT) 05/20/24 18:32 RSV Type B (PCR) Not detected (NOT DETECT) 05/20/24 18:32 Entero/Rhino (PCR) Not detected (NOT DETECT) 05/20/24 18:32 SARS-CoV-2 (PCR) Not detected (NOT DETECT) 05/20/24 18:32 All radiology interpretation(s) finalized by discharge Discharge Plan Discharge Patient Disposition: Admitted As Inpatient Admit Provider: Ruby Perez Clinical Impression: CHF (congestive heart failure), Thrombocytopenia, CAD (coronary artery disease), Cellulitis, Liver cirrhosis Condition: Stable Coding Level of Care Code ED Dental Cream Maker for Maicol Douglas
--- NOTE | 2024-05-20 13:00 | XRR_ITS ---
PROCEDURE INFORMATION: Exam: XR Left Foot Exam date and time: 05/20/2024 1:09 PM Age: 74 years old Clinical indication: Pain; Foot; Left; Additional info: Swelling pain left great toe TECHNIQUE: Imaging protocol: Radiologic exam of the left foot. Views: 3 or more views. COMPARISON: CT angio abd aorta runof [id number] 11/29/2020 7:09 PM FINDINGS: Bones/joints: No acute fracture or dislocation. Minimal plantar and posterior calcaneal spurring. Soft tissues: Mild soft tissue swelling about the forefoot. Vasculature: Vascular calcific disease. XR/XR foot LT min 3V* [id number] IMPRESSION: 1. Mild soft tissue swelling about the forefoot. 2. No acute fracture or dislocation.
--- NOTE | 2024-05-20 13:17 | ECG_ITS ---
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 [email or web address]
[2024-05-20 13:20] LABS: Eosinophils % 1.6 %; Hematocrit 36.7 % (37-53); Lymphocytes # 0.7 10^3/uL (0.8-4.8); Lymphocytes % 27.4 %; Mean Corpuscular HGB Conc 33.2 g/dL (30-55); Mean Corpuscular Hemoglobin 30.9 pg (27-33); Mean Corpuscular Volume 92.9 fl (82-101); Mean Platelet Volume 11.8 fL (7.4-10.4); Monocytes # 0.1 10^3/uL (0.2-0.9); Monocytes % 5.2 %; Neutrophils # 1.65 10^3/uL (1.8-7.7); Neutrophils % 65.4 %; Nucleated Red Blood Cells % 0 %; Platelet Count 54 10^3/cmm (157-399); Red Blood Count 3.95 10^6/uL (3.85-5.65); Red Cell Distribution Width 13.5 % (12.1-15.1); White Blood Count 2.52 10^3/uL (3.29-11.43)
[2024-05-20 13:47] LABS: Alanine Aminotransferase < 5 U/L (0-41); Albumin Level 3.5 g/dL (3.5-5.2); Alkaline Phosphatase 81 U/L (40-130); Anion Gap 10.6 (5-19); Aspartate Amino Transferase 11 U/L (0-40); Blood Urea Nitrogen 14 mg/dL (8-23); Calcium 8.6 mg/dL (8.5-10.5); Carbon Dioxide 29 mmol/L (22-29); Chloride 102 mmol/L (98-107); Creatine Phosphokinase 46 U/L (39-308); Globulin 3.2 g/dL (1.3-4.6); Glucose 137 mg/dL (65-115); NT Pro B Type Natriuretic Pept 11449 pg/mL (0-450); Osmolality Calculated 289 mOsm/kg (285-295); Potassium 3.6 mmol/L (3.5-5.1); Sodium 138 mmol/L (136-145); Total Bilirubin 1.4 mg/dL (0.15-1.2); Total Protein 6.7 g/dL (6.6-8.7)
[2024-05-20 13:51] LABS: Creatinine Clr Calc Pharmacy 60.9674
[2024-05-20 14:05] LABS: Bilirubin Urine Negative (Negative); Blood Urine 1+ (Negative); Glucose Urine UA Negative (Normal); Ketones Urine Negative (Negative); Leukocyte Esterase Urine Negative (Negative); Nitrate Urine Negative (Negative); Protein Urine 1+ (Negative); Specific Gravity, Urine 1.016 (1.005-1.030); Urine Appearance Clear (CLEAR); Urine Color Yellow (Yellow); pH Urine 6.5 (5-7)
[2024-05-20 14:07] LABS: Add Urine Microscopic? YES; Bacteria Urine None Seen /hpf; Hyaline Casts Urine 0.81 /lpf; Squamous Epithelial Cell Urine 0-5 /hpf (0-5); WBC Urine 0-5 /hpf (0-5)
[2024-05-20 14:13] LABS: Ammonia 26 umol/L (16-60); INR 1.27 (0.8-1.2)
[2024-05-20 14:16] LABS: Partial Thromboplastin Time 32.6 SECONDS (23.9-36.7)
[2024-05-20] MEDS: FUROsemide 10 mg/mL SDV 10mL 60 MG IVP (15:22)
--- NOTE | 2024-05-20 17:41 | USCV_ITS ---
Galen Macdonald Age: 74 Gender: M : 1950 Exam Date: 05/20/2024 20:45 Ordering Phys: Billy Lyles MD Technologist: ZOE Exam Location: [facility] [place] Indication: atrial fibrillation, bilateral lower extremity edema BP: 143 / 70 HR: 93 Rhythm: Atrial fibrillation Technical Quality: Adequate MEASUREMENTS (Male / Female) Normal Values 2D ECHO LV Diastolic Diameter PLAX 5.7 cm 4.2 - 5.9 / 3.9 - 5.3 cm IVS Diastolic Thickness 1.7 cm 0.6 - 1.0 / 0.6 - 0.9 cm IVS Systolic Thickness 2.3 cm LVPW Diastolic Thickness 1.6 cm 0.6 - 1.0 / 0.6 - 0.9 cm LVPW Systolic Thickness 1.7 cm LVOT Diameter 3.0 cm LV Ejection Fraction 2D Teich 26.0 % LV Ejection Fraction MOD 4C 28.6 % LV Ejection Fraction MOD 2C 32.5 % LV Ejection Fraction 2C AL 35.0 % LA Diameter 6.1 cm Aorta at Sinotubular Diameter 3.9 cm IVC Diameter 2.1 cm M-MODE LA Ao Ratio MM 1.5 AV Cusp Separation MM 2.4 cm DOPPLER AV Peak Velocity 135.0 cm/s LVOT Peak Velocity 60.0 cm/s AV Area Cont Eq vti 3.8 cm squared AV Area Cont Eq pk 3.1 cm squared MV Peak Velocity 137.0 cm/s MV Area PHT 10.0 cm squared Mitral E to A Ratio 0.0 TV Peak E Velocity 82.0 cm/s PV Peak Velocity 79.0 cm/s FINDINGS Left Ventricle Severe diffuse hypokinesia of the left ventricular end with an ejection fraction of 28%. Mild concentric left ventricular hypertrophy. Mildly dilated LV cavity.Grade I/IV diastolic dysfunction (abnormal relaxation filling pattern), normal to mildly elevated filling pressures. Right Ventricle The right ventricle is normal in size and function. Right Atrium The right atrium is normal in size. Left Atrium Moderately increased left atrial size. Mitral Valve Thickened mitral valve. Mild mitral valve regurgitation. Aortic Valve Thickened aortic valve. Mild aortic valve calcification. Tricuspid Valve Trace to mild tricuspid valve regurgitation. Pulmonic Valve Pulmonic valve not well visualized. Pericardium No pericardial effusion. Aorta Normal ascending aorta dimension. IVC Normal inferior vena cava. CONCLUSIONS Severe diffuse hypokinesia of the left ventricular end with an ejection fraction of 28%. Mild concentric left ventricular hypertrophy. Mildly dilated LV cavity.Grade I/IV diastolic dysfunction (abnormal relaxation filling pattern), normal to mildly elevated filling pressures. Moderately increased left atrial size. Thickened mitral valve. Mild mitral valve regurgitation. Thickened aortic valve. Mild aortic valve calcification. Trace to mild tricuspid valve regurgitation. The PA pressure could not be calculated because of the poor Doppler signals There is no pericardial effusion. There are no intracardiac masses. Compared to the study from 03/13/2024 there is a significant drop in the LV ejection fraction from 55 to 28% Dr Niharika Garcia MD [facility] (Electronically Signed) Final Date: 21 May 2024 09:22 S
--- NOTE | 2024-05-20 17:44 | USCV_ITS ---
Galen Macdonald Age: 74 Gender: M : 1950 Exam Date: 05/20/2024 20:22 Ordering Phys: Billy Lyles MD Technologist: ZOE Exam Location: [facility] [place] Indication: bilateral lower extremity edema HISTORY: bilateral lower extremity edema PROCEDURES: Venous duplex imaging was performed in bilateral lower extremities. The following venous structures were evaluated: common femoral vein, profunda vein, proximal portion of the greater saphenous vein, superficial femoral vein, and the popliteal vein. In addition, the posterior tibial veins were evaluated. Serial compression, augmentation maneuvers, and spectral Doppler flow evaluation were performed, which were normal. Bilaterally, the common femoral, superficial femoral, profunda femoral, popliteal, posterior tibial, and greater saphenous veins were identified and interrogated in the standard fashion. These veins were found to be easily compressible with spontaneous blood flow. No evidence of thrombus noted. CONCLUSIONS No evidence of right lower extremity DVT. No evidence of left lower extremity DVT. Tong Hardy MD (Electronically Signed) Final Date: 21 May 2024 12:56 S
--- NOTE | 2024-05-20 17:44 | P.HP_ITS ---
Providers/Chief Complaint 2 Admitting Physician: Ruby Perez MD Primary Care Provider: ALVARO Hurst [facility] [facility] & holding Fluid History of Present Illness History taken through over the phone. Patient able to collaborate but not able to give much history. Galen Macdonald is a 74 year old male with past medical history of stroke, CAD post PCI with 4 stents, hypertension loss brought into the ER today because of pain in his left great toe ongoing for last 1 week. Patient is not able to stand or wear socks because of tenderness. Pain has been getting worse. He is also been experiencing swelling which has been worsening in both of his legs. As per his usually when he is walking with his walker he tends to hit his toes with a walker. Patient himself denies any nausea vomiting, headache, chest pain, dizziness. Denies any sick contacts. Review of Systems 2 General: Reports: 10 or more systems reviewed and unremarkable except in HPI and below Const: Denies: fever(s), chills, body aches, change in appetite, change in weight, malaise, night sweats, diaphoresis, change in sleep pattern, daytime sleepiness or snoring Eyes: Denies: change in vision, blurry vision, photophobia, eye discomfort or eye discharge ENMT: Denies: throat pain, enlarged tonsils, hoarseness, mouth pain, oral sores, dry mouth, tinnitus, nasal congestion or post nasal drip Card: Denies: chest pain, palpitations, irregular heart rhythm, edema, swelling of feet/ankles, lightheadedness, syncope, pre-syncope, dyspnea on exertion, orthopnea, leg pain with exertion or acrocyanosis Resp: Denies: dyspnea, productive cough, non-productive cough, wheezing, stridor, pain on inspiration, change in phlegm color, hemoptysis or chest congestion GI: Denies: abdominal pain, nausea, vomiting, hematemesis, coffee ground emesis, dysphagia, heartburn, diarrhea, constipation, bloating, GI cramping, change in bowel habits, pain on defecation, hematochezia or melena : Denies: flank pain, difficulty urinating, dysuria, urinary frequency, urinary urgency, urinary hesitancy, urinary dribbling, difficulty starting urination, change in urine stream, nocturia or hematuria Musc: Denies: neck pain, back pain, extremity pain, joint pain, joint swelling, joint redness, joint stiffness or limited range of motion Neuro: Denies: headache(s), numbness in extremities, weakness in extremities, sensory changes, lack of coordination, difficulty walking, frequent falls, dizziness, vertigo, confusion, Slurred speech present, difficulty communicating thoughts or seizure-like activity Psych: Denies: anxiety, depression, mood swings, panic attacks, hopelessness or irritability Endo: Denies: polyuria, polydipsia, tired all the time, cold intolerance, excessive sweating, flushing or heat intolerance Mao/Lymph: Denies: easy bruising or easy bleeding All/Imm: Denies: tongue swelling, facial swelling or acute wheezing Medications/Allergies Home Medications Medication Instructions Recorded Confirmed Last Taken Type acetaminophen 500 mg tablet 500 mg PO Q4H PRN PAIN 06/10/19 05/20/24 06/20/19 History nitroglycerin 0.4 mg sublingual 0.4 mg sublingual Q5M PRN chest 08/05/19 05/20/24 Unknown Rx tablet pain #20 tabs tamsulosin 0.4 mg capsule (Flomax) 0.8 mg PO DAILY 08/08/23 05/20/24 Unknown History cholecalciferol (vitamin D3) 50 50 mcg PO DAILY 05/20/24 05/20/24 Unknown History mcg (2,000 unit) capsule (Vitamin D3) folic acid 1 mg tablet 1 mg PO DAILY 05/20/24 05/20/24 Unknown History lisinopril 10 mg tablet 10 mg PO DAILY 05/20/24 05/20/24 Unknown History omeprazole 20 mg tablet,delayed 20 mg PO BID 05/20/24 05/20/24 Unknown History release potassium chloride 20 mEq 10 meq PO DAILY 05/20/24 05/20/24 Unknown History tablet,extended release Allergies Allergy/AdvReac Type Severity Reaction Status Date / Time Penicillins AdvReac ADR-Cramping Verified 05/07/24 16:03 of the Muscles PFSH Acute 2 PFSH: Medical History (Updated 05/20/24 @ 18:14 by Billy Lyles MD) Hypernatremia Hepatic encephalopathy Liver cirrhosis Recent cerebrovascular accident (CVA) CHF (congestive heart failure) Extremity ischemia Arrhythmia Elevated bilirubin Dehydration Thrombocytopenia Hyperbilirubinemia Chest pain Ischemic cardiomyopathy Myocardial infarction Obesity Chronic pain Benign prostatic hyperplasia with lower urinary tract symptoms Hyperlipidemia GERD (gastroesophageal reflux disease) Status post replacement of knee joint Diabetes mellitus Hypertension CAD (coronary artery disease) H/O adenomatous polyp of colon Surgical History Hx of hernia repair Hx of knee surgery Hx of appendectomy Post PTCA Family History Mother Cancer Denies family history of Diabetes CAD (coronary artery disease) Clotting disorder Dementia Hyperlipidemia Psychiatric illness Chronic kidney disease (CKD) Suicide Anesthesia complication Bleeding disorder Family history of premature coronary artery disease Lung disease Hypertension Stroke Social History Smoking and tobacco/nicotine status: former use of tobacco/nicotine Alcohol intake: former Substance/Drug Use: never Lives independently: Yes Household members: spouse Marital status: Current occupational status: retired Vitals/I&O/Wt Last Vital Signs Temp 97.8 F 05/20/24 11:50 Pulse 62 05/20/24 17:04 Resp 18 05/20/24 11:50 BP 142/80 05/20/24 17:04 Pulse Ox 98 05/20/24 17:04 O2 Del Method Room Air 05/20/24 11:50 Weight last 48 hrs Weight 96.162 kg Physical Exam 2 Narrative: General: No acute distress, AO x3, slurred speech HEENT: PERRLA, pupils bilaterally equal and reactive Chest: Bilateral bronchial breath sounds all lung veloz with occasional rhonchi fine crackles CVS: S1-S2 regular, no murmurs, no tachycardia, no gallops, no rubs Abdomen: Soft, nontender, no organomegaly, bowel sounds present Neuro: No focal deficits, no facial deformity, AO x3, power 5/5 in all limbs Data 05/20/24 12:12 05/20/24 13:00 A&P Assessment and plan (1) Cellulitis: Of left great toe. History of injury while walking with a walker. Check ESR, CRP. No fracture on foot x-ray. CT foot. Check blood culture, MRSA swab. For now start patient on IV vancomycin and meropenem. Patient is allergic to penicillin. If MRSA swab is negative will discontinue vancomycin. (2) Swelling of lower extremity: Could be in setting of mild congestive heart failure. Last echocardiogram from February 2024 showed an EF of 55% with grade 1 diastolic dysfunction. Received 60 mg IV Lasix in the ER. Hold off on any further Lasix for now. Monitor urine output. Lower limb Doppler to rule out DVT. (3) Liver cirrhosis: Chronic. LFTs normal limits. Mild bilirubinemia. (4) Thrombocytopenia: Likely in setting of liver cirrhosis (5) Leukopenia: Chronically on the lower side. Currently worsened with mild neutropenia. No need for neutropenic precautions. Check respiratory viral panel. (6) Bigeminy: Past history. Asymptomatic. Potassium within normal limits. Check magnesium level. Potassium around 4, magnesium around 2. Will replace accordingly. Telemetry. (7) Acute kidney injury: Baseline creatinine around 1.1-1.2. Currently 1.3. Medical reconciliation done for nephrotoxic drugs. Hold off on home dose of lisinopril. Strict input charting, daily weights. (8) CAD (coronary artery disease): No active chest pain. Check A1c, lipid panel. Baby aspirin 81 mg daily. Start statin depending on liver functions. Qualifiers: Coronary Disease-Associated Artery/Lesion type: [place] artery [place] vs. transplanted heart: [place] heart Associated angina: with unspecified form of angina Qualified Code(s): I25.119 - Atherosclerotic heart disease of [place] coronary artery with unspecified angina pectoris (9) Hypertension: Goal blood pressure less than 140/90 mmHg. Hold off on lisinopril given MARU. Will start on antihypertensive most likely with amlodipine as for goal blood pressures. Qualifiers: Hypertension type: primary hypertension Qualified Code(s): I10 - Essential (primary) hypertension Plan Full code Cardiac diet Protonix OPD prophylaxis Heparin 5000 Q8 hourly for DVT prophylaxis Attestations 2 Medical Necessity Statement*: Admit under observation for management of left great toe cellulitis in setting of trauma, lower limb swelling, mild MARU Diagnoses Cellulitis L03.90 Swelling of lower extremity M79.89 Liver cirrhosis K74.60 Thrombocytopenia D69.6 Leukopenia D72.819 Bigeminy I49.8 Acute kidney injury N17.9 Coronary artery disease involving [place] coronary artery of [place] heart with angina pectoris I25.119 Coronary Disease-Associated Artery/Lesion type: [place] artery [place] vs. transplanted heart: [place] heart Associated angina: with unspecified form of angina Primary hypertension I10 Hypertension type: primary hypertension
[2024-05-20 18:14] LABS: D Dimer 1.27 ug/mLFEU (0-0.59)
[2024-05-20] MEDS: heparin 5,000 unit/mL INJ 1 mL 5000 UNIT SUBCUT (18:25)
[2024-05-20 18:40] LABS: Procalcitonin 0.08 ng/mL (0-0.5); Thyroid Stimulating Hormone 0.73 uIU/mL (0.27-4.20); Vitamin B12 357 pg/mL (232-1245)
[2024-05-20] MEDS: meropenem 1,000 mg SDV 1000 MG IVP (18:42)
[2024-05-20 18:51] LABS: Iron 58 ug/dL (59-158); Magnesium 1.8 mg/dL (1.7-2.3); Total Iron Binding Capacity 187 mcg/dl; Unsaturated Iron Binding 129 ug/dL (112-347)
[2024-05-20] MEDS: vancomycin 1,500 MG/300 ML PIGGYBACK 200 MG IV (19:05)
[2024-05-20 20:29] LABS: MRSA PCR OZH (swab) NOT DETECTED (Negative)
[2024-05-20 20:43] LABS: Adenovirus Not Detected (NOT DETECT); Chlamydia Pneumoniae Not Detected (NOT DETECT); Human Metapneumovirus Not Detected (NOT DETECT); Human Rhinovirus/Enterovirus Not Detected (NOT DETECT); Influenza A Not Detected (NOT DETECT); Influenza A H1 Not Detected (NOT DETECT); Influenza A H1-2009 Not Detected (NOT DETECT); Influenza A H3 Not Detected (NOT DETECT); Influenza B Not Detected (NOT DETECT); Mycoplasma Pneumoniae Not Detected (NOT DETECT); Parainfluenza Virus Type 1 Not Detected (NOT DETECT); Parainfluenza Virus Type 2 Not Detected (NOT DETECT); Parainfluenza Virus Type 3 Not Detected (NOT DETECT); Parainfluenza Virus Type 4 Not Detected (NOT DETECT); Respiratory Syncytial Virus A Not Detected (NOT DETECT); Respiratory Syncytial Virus B Not Detected (NOT DETECT); SARS-COV-2 Not Detected (NOT DETECT)
[2024-05-20 20:50] LABS: Coronavirus 229E,HKU1,NL63,OC4 Detected (NOT DETECT)
[2024-05-20] MEDS: dexamethasone 10 mg/mL INJ 6 MG IVP (23:20)
[2024-05-20 23:23] LABS: Erythrocyte Sedimentation Rate < 1 mm/hr (0-10)
[2024-05-20 23:27] LABS: C Reactive Protein 3.7 mg/L (0.0-4.9)
[2024-05-21] VITALS (59 sets, daily range): BP systolic 114–156; BP diastolic 53–92; PULSE 63–107; RESP 12–21; TEMP 36.5–37.2; O2SAT 90–100
--- NOTE | 2024-05-21 00:01 | CTR_ITS ---
PROCEDURE INFORMATION: Exam: CT Left Lower Extremity, Foot Exam date and time: 05/21/2024 12:16 AM Age: 74 years old Clinical indication: Swelling, leg or foot; Additional info: Cellulitis of great toe TECHNIQUE: Imaging protocol: CT of the left lower extremity without contrast was performed. Exam focused on the foot. Radiation optimization: All CT scans at this facility use at least one of these dose optimization techniques: automated exposure control; mA and/or kV adjustment per patient size (includes targeted exams where dose is matched to clinical indication); or iterative reconstruction. COMPARISON: CT angio abd aorta runof [id number] 11/29/2020 7:09 PM RADIATION DOSE METRICS: Total DLP (mGy-cm): 130.15 FINDINGS: Bones/joints: No acute fracture. No cortical irregularity or medullary lucency to suggest osteomyelitis. There is a well corticated bony fragment just inferior to the lateral malleolus which may represent sequela of prior injury. Soft tissues: Marked soft tissue swelling along the dorsal aspect of the forefoot and circumferential about the ankle. CT/CT foot LT wo con* [id number] IMPRESSION: 1. Marked soft tissue swelling along the dorsal aspect of the forefoot and circumferential about the ankle. 2. No acute fracture. 3. No cortical irregularity or medullary lucency to suggest osteomyelitis.
[2024-05-21] MEDS: meropenem 1,000 mg SDV 1000 MG IVP ×3 (02:07→18:08)
[2024-05-21] MEDS: heparin 5,000 unit/mL INJ 1 mL 5000 UNIT SUBCUT ×3 (02:07→18:08)
[2024-05-21 04:54] LABS: Eosinophils % 0.4 %; Hematocrit 36.6 % (37-53); Lymphocytes # 0.5 10^3/uL (0.8-4.8); Lymphocytes % 19.7 %; Mean Corpuscular HGB Conc 33.6 g/dL (30-55); Mean Corpuscular Hemoglobin 31.2 pg (27-33); Mean Corpuscular Volume 92.9 fl (82-101); Mean Platelet Volume 11.3 fL (7.4-10.4); Monocytes % 1.7 %; Neutrophils # 1.82 10^3/uL (1.8-7.7); Neutrophils % 77.8 %; Nucleated Red Blood Cells % 0 %; Platelet Count 52 10^3/cmm (157-399); Red Blood Count 3.94 10^6/uL (3.85-5.65); Red Cell Distribution Width 13.4 % (12.1-15.1); White Blood Count 2.34 10^3/uL (3.29-11.43)
[2024-05-21 05:21] LABS: Chol HDL Ratio 3.52 mg/dL (1.0-5.00); Cholesterol 155 mg/dL (0-200); HDL Cholesterol 44 mg/dL (60-100); LDL Cholesterol Calculated 98 mg/dL (50-129); LDL HDL Ratio 2.23 RATIO (0.00-3.22); Triglycerides 67 mg/dL (0-150)
[2024-05-21 05:22] LABS: Alanine Aminotransferase < 5 U/L (0-41); Albumin Level 3.5 g/dL (3.5-5.2); Alkaline Phosphatase 79 U/L (40-130); Aspartate Amino Transferase 11 U/L (0-40); Blood Urea Nitrogen 17 mg/dL (8-23); Calcium 8.9 mg/dL (8.5-10.5); Carbon Dioxide 25 mmol/L (22-29); Chloride 101 mmol/L (98-107); Creatinine Clr Calc Pharmacy 60.9674; Globulin 3.3 g/dL (1.3-4.6); Glucose 173 mg/dL (65-115); Magnesium 1.8 mg/dL (1.7-2.3); Osmolality Calculated 294 mOsm/kg (285-295); Phosphorus 3.1 mg/dL (2.5-4.5); Sodium 139 mmol/L (136-145); Total Bilirubin 1.6 mg/dL (0.15-1.2); Total Protein 6.8 g/dL (6.6-8.7)
[2024-05-21 05:25] LABS: Procalcitonin 0.09 ng/mL (0-0.5)
[2024-05-21 05:31] LABS: Folate Level 5.1 ng/mL (4.5-32.2)
[2024-05-21 05:37] LABS: Estmated Average Glucose 97
[2024-05-21] MEDS: vancomycin 1,250 MG/250 ML PIGGYBACK 166.67 MG IV (06:24)
--- NOTE | 2024-05-21 06:51 | PHA.VACGOAL ---
Vancomycin Goal - Goal Vancomycin Goal:: 10-15 mg/L Vancomycin Indication:: SSTI - Therapy Current therapy:: Meropenem Day of therpy:: Day []of [] . Actual body weight (kg): 96.162 kg - Data Labs: WBC 2.34 10^3/uL (3.29-11.43) L 05/21/24 03:50 RBC 3.94 10^6/uL (3.85-5.65) 05/21/24 03:50 Hgb 12.30 g/dL (11.27-16.99) 05/21/24 03:50 Hct 36.6 % (37-53) L 05/21/24 03:50 MCV 92.9 fl (82-101) 05/21/24 03:50 MCH 31.2 pg (27-33) 05/21/24 03:50 MCHC 33.6 g/dL (30-55) 05/21/24 03:50 RDW 13.4 % (12.1-15.1) 05/21/24 03:50 Sodium 139 mmol/L (136-145) 05/21/24 03:50 Potassium 4.0 mmol/L (3.5-5.1) 05/21/24 03:50 Chloride 101 mmol/L (98-107) 05/21/24 03:50 Carbon Dioxide 25 mmol/L (22-29) 05/21/24 03:50 Anion Gap 17.0 (5-19) 05/21/24 03:50 BUN 17 mg/dL (8-23) 05/21/24 03:50 Creatinine 1.3 mg/dL (0.7-1.2) H 05/21/24 03:50 GFR Calculation Not Reportable 05/21/24 03:50 Treatment plan:: new consult Regimen:: New start vancomycin for cellulitis. Started on dose of 1250 mg q12h. Patient is afebrile. Renal function stable, Scr 1.3 mg/dL. Continue current dose.
[2024-05-21] MEDS: pantoprazole DR 40 mg Tablet PO (08:34)
--- NOTE | 2024-05-21 10:12 | PC.CHAP ---
Pastoral Care Encounter/Spiritual Assessment Type of Contact [] Declined cap sizer visit [] Patient/Family/Request visit [] Outpatient visit [] Follow-up visit [] Physician referral [] Code/Alert [] Routine visit [] Staff referral [] Actively dying [] Patient sleeping [] Family support [] [] Out of room [] Palliative care [] [] Receiving care in room [] Pre-surgical visit [] Trauma [] Long length of stay [] ICU visit [x] Other:Contact precautions. No visit. Relational/Emotional Strength [] Patient feels connected with others/family/visitors/staff [] Distress [] Loneliness/isolation [] Abandonment Spirituality of Patient [] Person of Adrianne [] Attends Sabianism of their Adrianne [] Believes in Prayer [] Reads Bible or Mosque materials [] There are Spiritual issues to be addressed Missing Persons Investigator Interventions [] Prayer [] Active listening [] Non-anxious presence [] Spiritual/emotional support [] Crisis/trauma care [] Spiritual counseling [] Bereavement support [] Provided bereavement packet [] Provided Bible/devotional materials [] Provided toy/stuffed animal, coloring book to patient or family member [] Provided Communion [] Anointing/[place] [] Salvation [] Completed spiritual assessment [] Other: Impact on Illness or Injury [] Angry [] Fearful [] Anxious [] Often cries [] Exhaustion [] Unable to work [] Unable to attend religion [] Unable to walk/stand [] Unable to read [] Unable to drive [] Unable to eat/drink [] Unable to sleep [] Unable to be with family [] Patient intubated [] Other: Summary Time spent with patient
[2024-05-21] MEDS: metoprolol tartrate 25 mg Tablet 12.5 MG PO ×2 (10:32→20:50)
--- NOTE | 2024-05-21 12:32 | P.PN_ITS ---
Subjective 2 Subjective: No acute vents overnight. Seen with at bedside. Patient states he is feeling slightly better. Continues to remain on room air. As per he is feeling better because he is able to wear socks today without any pain in his legs. Vitals/I&O/Wt Last Vital Signs Temp 97.7 F 05/21/24 11:13 Pulse 80 05/21/24 11:13 Resp 16 05/21/24 11:13 BP 125/53 05/21/24 11:13 Pulse Ox 97 05/21/24 11:13 O2 Del Method Room Air 05/21/24 11:13 05/20/24 05/21/24 05/21/24 22:59 06:59 14:59 Intake Total 420 / 420 250 / 250 Output Total 200 / 200 1090 / 1290 Balance 220 / 220 -1090 / -870 250 / 250 Weight last 48 hrs Weight 94.982 kg Weight 96.162 kg Weight 96.162 kg Physical Exam 2 Narrative: General: No acute distress, AO x3, slurred speech HEENT: PERRLA, pupils bilaterally equal and reactive Chest: Bilateral bronchial breath sounds all lung veloz with occasional rhonchi fine crackles CVS: S1-S2 regular, soft pansystolic murmur at apex, frequent missed beats, no tachycardia, no gallops, no rubs Abdomen: Soft, nontender, no organomegaly, bowel sounds present Neuro: No focal deficits, no facial deformity, AO x3, power 5/5 in all limbs Data 05/21/24 03:50 05/21/24 03:50 A&P Assessment and plan (1) CHF (congestive heart failure): New echocardiogram today shows a global LV hypokinesia with an EF of 28%, LVH, mild LV cavity dilatation, grade 1 diastolic dysfunction. Decrease in EF from March 13 from 55 to 28%. Start on metoprolol 12.5 mg twice daily. Holding off on lisinopril for now given mild MARU. Patient most likely will need a cardiac angiogram for ACS workup. Will uptitrate GDMT going forward. Patient having high VPC burden. Metoprolol as above would help with the same. Patient will most likely need a LifeVest at discharge. Will confirm with cardiology. (2) Ischemic cardiomyopathy: Patient history of CAD with multiple PCI in the past. As per family members he has had in-stent restenosis in the past. New low EF. Will consult cardiology for further workup and possible cardiac angiogram. Family is agreeable. No active chest pain. (3) CAD (coronary artery disease): No active chest pain. Appreciate A1c, lipid panel. Continue with aspirin 81 mg daily. Holding off on starting given history of liver cirrhosis and optimal lipid panel. Qualifiers: Coronary Disease-Associated Artery/Lesion type: [place] artery [place] vs. transplanted heart: [place] heart Associated angina: with unspecified form of angina Qualified Code(s): I25.119 - Atherosclerotic heart disease of [place] coronary artery with unspecified angina pectoris (4) Cellulitis: Appreciate ESR, CRP, CT foot. Mild concern for cellulitis. Cannot rule out gout. Check uric acid. Follow-up blood culture. MRSA swab negative. For now continue with IV meropenem. Will most likely transition to oral antibiotics for overall 5-day course on discharge. Continue with dexamethasone which will also help with coronavirus infection. (5) Swelling of lower extremity: Most likely in setting of congestive heart failure. Treatment as above. Hold off on diuretics for now. Patient seems euvolemic. Lower limb Dopplers awaited. (6) Liver cirrhosis: Chronic. LFTs normal limits. Mild bilirubinemia. (7) Thrombocytopenia: Likely in setting of liver cirrhosis (8) Leukopenia: Chronically on the lower side. Currently worsened with mild neutropenia. No need for neutropenic precautions. Check respiratory viral panel. (9) Bigeminy: Past history. Asymptomatic. Potassium within normal limits. Check magnesium level. Potassium around 4, magnesium around 2. Will replace accordingly. Telemetry. (10) Acute kidney injury: Most likely slight concern for CKD. Baseline creatinine 1.1-1.2. Stable at 1.3. Medical reconciliation done for nephrotoxic drugs. Hold off on home dose of lisinopril. Strict input charting, daily weights. (11) Hypertension: Goal blood pressure less than 140/90 mmHg. Hold off on lisinopril given MARU. Metoprolol as above. Restart lisinopril most likely after cardiac angiogram. Qualifiers: Hypertension type: primary hypertension Qualified Code(s): I10 - Essential (primary) hypertension (12) Other coronavirus as the cause of diseases classified elsewhere: Plan Full code Cardiac diet Protonix OPD prophylaxis Heparin 5000 Q8 hourly for DVT prophylaxis Attestations 2 Medical Necessity Statement*: Galen Macdonald is being changed to inpatient status as stay will now exceed 2 midnights. Ongoing hospital care is necessary for management of new onset congestive heart failure with concerns for ischemic cardiomyopathy while further ACS workup was done, guideline directed medical therapy is uptitrated, possible arrangement of LifeVest Diagnoses CHF (congestive heart failure) I50.9 Ischemic cardiomyopathy I25.5 Coronary artery disease involving [place] coronary artery of [place] heart with angina pectoris I25.119 Coronary Disease-Associated Artery/Lesion type: [place] artery [place] vs. transplanted heart: [place] heart Associated angina: with unspecified form of angina Cellulitis L03.90 Swelling of lower extremity M79.89 Liver cirrhosis K74.60 Thrombocytopenia D69.6 Leukopenia D72.819 Bigeminy I49.8 Acute kidney injury N17.9 Primary hypertension I10 Hypertension type: primary hypertension Other coronavirus as the cause of diseases classified elsewhere B97.29
[2024-05-21] MEDS: tamsulosin 0.4 mg Capsule 0.8 MG PO (20:50)
[2024-05-21] MEDS: dexamethasone 10 mg/mL INJ 6 MG IVP (20:52)
[2024-05-22] VITALS (7 sets, daily range): BP systolic 123–145; BP diastolic 65–81; PULSE 52–77; RESP 14–28; TEMP 36.6–36.8; O2SAT 93–99
[2024-05-22] MEDS: meropenem 1,000 mg SDV 1000 MG IVP ×3 (01:32→17:13)
[2024-05-22] MEDS: heparin 5,000 unit/mL INJ 1 mL 5000 UNIT SUBCUT ×3 (01:32→17:13)
[2024-05-22 06:13] LABS: Basophils % 0.2 %; Hematocrit 33.1 % (37-53); Lymphocytes # 0.5 10^3/uL (0.8-4.8); Lymphocytes % 13.3 %; Mean Corpuscular HGB Conc 33.5 g/dL (30-55); Mean Corpuscular Hemoglobin 30.7 pg (27-33); Mean Corpuscular Volume 91.7 fl (82-101); Mean Platelet Volume 11.3 fL (7.4-10.4); Monocytes # 0.1 10^3/uL (0.2-0.9); Nucleated Red Blood Cells % 0 %; Platelet Count 53 10^3/cmm (157-399); Red Blood Count 3.61 10^6/uL (3.85-5.65); Red Cell Distribution Width 13.4 % (12.1-15.1); White Blood Count 4.05 10^3/uL (3.29-11.43)
[2024-05-22 06:31] LABS: Magnesium 1.7 mg/dL (1.7-2.3)
[2024-05-22 06:33] LABS: Alanine Aminotransferase < 5 U/L (0-41); Alkaline Phosphatase 62 U/L (40-130); Anion Gap 14.3 (5-19); Aspartate Amino Transferase 9 U/L (0-40); Blood Urea Nitrogen 30 mg/dL (8-23); Calcium 8.6 mg/dL (8.5-10.5); Carbon Dioxide 26 mmol/L (22-29); Chloride 101 mmol/L (98-107); Creatinine Clr Calc Pharmacy 61.1162; Globulin 2.7 g/dL (1.3-4.6); Glucose 189 mg/dL (65-115); Osmolality Calculated 295 mOsm/kg (285-295); Potassium 4.3 mmol/L (3.5-5.1); Sodium 137 mmol/L (136-145); Total Protein 5.7 g/dL (6.6-8.7)
[2024-05-22] MEDS: folic acid 1 mg Tablet PO (07:39)
[2024-05-22] MEDS: metoprolol tartrate 25 mg Tablet 12.5 MG PO ×2 (07:39→21:32)
[2024-05-22] MEDS: pantoprazole DR 40 mg Tablet PO (07:39)
--- NOTE | 2024-05-22 08:43 | P.CONIM_ITS ---
Providers/Reason For Consult 2 Consulting Physician/Specialty*: Tan Burns MD/ Cardiology Reason for Consult*: LV dysfunction Requesting Physician: Dr Lyles Attending Physician: Billy Lyles MD Primary Care Provider: ALVARO Hurst History of Present Illness History of Present Illness Galen Macdonald is a 74 year old male with past medical history of hypertension, coronary artery disease with multiple stents who was admitted to hospital with foot pain. Has been having lower extremity edema and shortness of breath. No chest pain. Echo was performed that shows LV systolic function is severely decreased compared to before and EF is 28%. EKG not showing ischemic changes Review of Systems 2 Const: Denies: fever(s) or chills Card: Denies: chest pain Resp: Reports: dyspnea GI: Denies: abdominal pain : Denies: dysuria, urinary frequency or urinary urgency Musc: Denies: neck pain or back pain Skin/Breast: Denies: rash Medications/Allergies Home Medications Medication Instructions Recorded Confirmed Last Taken Type acetaminophen 500 mg tablet 500 mg PO Q4H PRN PAIN 06/10/19 05/20/24 06/20/19 History nitroglycerin 0.4 mg sublingual 0.4 mg sublingual Q5M PRN chest 08/05/19 05/20/24 Unknown Rx tablet pain #20 tabs tamsulosin 0.4 mg capsule (Flomax) 0.4 mg PO ,21 08/08/23 05/21/24 Unknown History cholecalciferol (vitamin D3) 50 50 mcg PO DAILY 05/20/24 05/20/24 Unknown History mcg (2,000 unit) capsule (Vitamin D3) folic acid 1 mg tablet 1 mg PO DAILY 05/20/24 05/20/24 Unknown History lisinopril 10 mg tablet 10 mg PO DAILY 05/20/24 05/20/24 Unknown History omeprazole 20 mg tablet,delayed 20 mg PO BID 05/20/24 05/20/24 Unknown History release potassium chloride 20 mEq 10 meq PO DAILY 05/20/24 05/20/24 Unknown History tablet,extended release Allergies Allergy/AdvReac Type Severity Reaction Status Date / Time Penicillins AdvReac ADR-Cramping Verified 05/07/24 16:03 of the Muscles Current Medications Generic Name Dose Route Start Last Admin Trade Name Freq PRN Reason Stop Dose Admin Dexamethasone 6 mg 12/23/24 22:00 05/21/24 20:52 Dexamethasone 10 Mg/Ml Inj IVP 6 mg Q24H RUSLAN Administration Folic Acid 1 mg 05/22/24 09:00 05/22/24 07:39 Folic Acid 1 Mg Tablet PO 1 mg DAILY RUSLAN Administration Heparin Sodium (Porcine) 5,000 unit 05/20/24 17:45 05/22/24 07:38 Heparin 5,000 Unit/Ml Inj 1 Ml SUBCUT 5,000 unit Q8H RUSLAN Administration Meropenem 1,000 mg 05/20/24 18:15 05/22/24 01:32 Meropenem 1,000 Mg Sdv IVP 1,000 mg Q8H RUSLAN Administration Protocol Metoprolol Tartrate 12.5 mg 05/21/24 09:55 05/22/24 07:39 Metoprolol Tartrate 25 Mg Tablet PO 12.5 mg BID@0900,2100 RUSLAN Administration Pantoprazole Sodium 40 mg 05/21/24 09:00 05/22/24 07:[address] 40 Mg Tablet PO 40 mg DAILY RUSLAN Administration Tamsulosin HCl 0.8 mg 05/21/24 21:00 05/21/24 20:50 Tamsulosin 0.4 Mg Capsule PO 0.8 mg BEDTIME RUSLAN Administration PFSH Acute 2 PFSH: Medical History Hypernatremia Hepatic encephalopathy Liver cirrhosis Recent cerebrovascular accident (CVA) CHF (congestive heart failure) Extremity ischemia Arrhythmia Elevated bilirubin Dehydration Thrombocytopenia Hyperbilirubinemia Chest pain Ischemic cardiomyopathy Myocardial infarction Obesity Chronic pain Benign prostatic hyperplasia with lower urinary tract symptoms Hyperlipidemia GERD (gastroesophageal reflux disease) Status post replacement of knee joint Diabetes mellitus Hypertension CAD (coronary artery disease) H/O adenomatous polyp of colon Surgical History Hx of hernia repair Hx of knee surgery Hx of appendectomy Post PTCA Family History Mother Cancer Denies family history of Diabetes CAD (coronary artery disease) Clotting disorder Dementia Hyperlipidemia Psychiatric illness Chronic kidney disease (CKD) Suicide Anesthesia complication Bleeding disorder Family history of premature coronary artery disease Lung disease Hypertension Stroke Social History Smoking and tobacco/nicotine status: former use of tobacco/nicotine Alcohol intake: former Substance/Drug Use: never Lives independently: Yes Household members: spouse Marital status: Current occupational status: retired Vitals/I&O/Wt Last Vital Signs Temp 98.2 F 05/22/24 07:27 Pulse 60 05/22/24 07:27 Resp 18 05/22/24 07:27 BP 139/78 05/22/24 07:27 Pulse Ox 93 05/22/24 07:27 O2 Del Method Room Air 05/22/24 07:27 05/21/24 05/22/24 05/22/24 22:59 06:59 14:59 Intake Total 480 / 1210 Output Total 250 / 250 100 / 100 Balance 230 / 960 -100 / -100 Weight last 48 hrs Weight 213 lb 3.2 oz Weight 209 lb 6.4 oz Weight 212 lb Weight 212 lb Physical Exam 2 Narrative: GENERAL: Patient is alert, awake and oriented x3. [] NECK: No jugular vein distension. [] HEENT: No cyanosis. No icterus. No pallor. [] HEART: Regular S1 and S2. No murmur, rub or gallop. [] LUNGS: Diminished air entry bilaterally. CENTRAL NERVOUS SYSTEM: Grossly nonfocal. [] EXTREMITIES: Lower extremities with 1+ edema bilaterally Data 05/23/24 03:39 05/23/24 03:39 A&P Assessment and plan (1) CHF (congestive heart failure): (2) Ischemic cardiomyopathy: (3) CAD (coronary artery disease): Qualifiers: Coronary Disease-Associated Artery/Lesion type: [place] artery [place] vs. transplanted heart: [place] heart Associated angina: with unspecified form of angina Qualified Code(s): I25.119 - Atherosclerotic heart disease of [place] coronary artery with unspecified angina pectoris (4) Cellulitis: (5) Swelling of lower extremity: (6) Liver cirrhosis: (7) Thrombocytopenia: (8) Leukopenia: (9) Bigeminy: (10) Acute kidney injury: (11) Hypertension: Qualifiers: Hypertension type: primary hypertension Qualified Code(s): I10 - Essential (primary) hypertension (12) Other coronavirus as the cause of diseases classified elsewhere: Plan Patient has decrease in cardiac function. He has been having shortness of breath and lower extremity edema recently. We will proceed with coronary angiogram to assess for CAD as a reason for LV dysfunction. We will start aspirin for now. Patient has thrombocytopenia likely secondary to liver disease NPO past midnight Thank you for involving us with care of this patient. We will continue to follow. Please call with questions. Consult Attestations 2 Medical Necessity Statement: Care expected to cross 2 midnights. Coding Level of Care Code Acute Code for Chg Fwd Diagnoses CHF (congestive heart failure) I50.9 Ischemic cardiomyopathy I25.5 Coronary artery disease involving [place] coronary artery of [place] heart with angina pectoris I25.119 Coronary Disease-Associated Artery/Lesion type: [place] artery [place] vs. transplanted heart: [place] heart Associated angina: with unspecified form of angina Cellulitis L03.90 Swelling of lower extremity M79.89 Liver cirrhosis K74.60 Thrombocytopenia D69.6 Leukopenia D72.819 Bigeminy I49.8 Acute kidney injury N17.9 Primary hypertension I10 Hypertension type: primary hypertension Other coronavirus as the cause of diseases classified elsewhere B97.29
--- NOTE | 2024-05-22 09:26 | PC.CHAP ---
Pastoral Care Encounter/Spiritual Assessment Type of Contact [] Declined residential case manager visit [] Patient/Family/Request visit [] Outpatient visit [] Follow-up visit [] Physician referral [] Code/Alert [] Routine visit [] Staff referral [] Actively dying [] Patient sleeping [] Family support [] [] Out of room [] Palliative care [] [] Receiving care in room [] Pre-surgical visit [] Trauma [] Long length of stay [] ICU visit [x] Other:Contact precautions. No visit. Relational/Emotional Strength [] Patient feels connected with others/family/visitors/staff [] Distress [] Loneliness/isolation [] Abandonment Spirituality of Patient [] Person of Adrianne [] Attends Faith of their Adrianne [] Believes in Prayer [] Reads Bible or Mormonism materials [] There are Spiritual issues to be addressed Certified Court/Medical Interpreter Interventions [] Prayer [] Active listening [] Non-anxious presence [] Spiritual/emotional support [] Crisis/trauma care [] Spiritual counseling [] Bereavement support [] Provided bereavement packet [] Provided Bible/devotional materials [] Provided toy/stuffed animal, coloring book to patient or family member [] Provided Communion [] Anointing/[place] [] Salvation [] Completed spiritual assessment [] Other: Impact on Illness or Injury [] Angry [] Fearful [] Anxious [] Often cries [] Exhaustion [] Unable to work [] Unable to attend spiritism [] Unable to walk/stand [] Unable to read [] Unable to drive [] Unable to eat/drink [] Unable to sleep [] Unable to be with family [] Patient intubated [] Other: Summary Time spent with patient
--- NOTE | 2024-05-22 11:21 | P.PN_ITS ---
Subjective 2 Subjective: No acute events overnight. Patient has remained hemodynamically stable and afebrile. Denies any nausea, vomiting, headache. Less ectopy on clinical research monitor now. Seen with spouse at bedside. States his toe pain is almost completely resolved. Vitals/I&O/Wt Last Vital Signs Temp 98.2 F 05/22/24 07:27 Pulse 60 05/22/24 07:27 Resp 18 05/22/24 07:27 BP 139/78 05/22/24 07:27 Pulse Ox 93 05/22/24 07:27 O2 Del Method Room Air 05/22/24 07:27 05/21/24 05/22/24 05/22/24 22:59 06:59 14:59 Intake Total 480 / 1210 360 / 360 Output Total 250 / 250 100 / 100 Balance 230 / 960 260 / 260 Weight last 48 hrs Weight 96.706 kg Weight 94.982 kg Weight 96.162 kg Weight 96.162 kg Physical Exam 2 Narrative: General: No acute distress, AO x3, slurred speech HEENT: PERRLA, pupils bilaterally equal and reactive Chest: Bilateral bronchial breath sounds all lung veloz with occasional rhonchi fine crackles CVS: S1-S2 regular, soft pansystolic murmur at apex, frequent missed beats, no tachycardia, no gallops, no rubs Abdomen: Soft, nontender, no organomegaly, bowel sounds present Neuro: No focal deficits, no facial deformity, AO x3, power 5/5 in all limbs Data 05/22/24 05:34 05/22/24 05:34 A&P Assessment and plan (1) CHF (congestive heart failure): New echocardiogram today shows a global LV hypokinesia with an EF of 28%, LVH, mild LV cavity dilatation, grade 1 diastolic dysfunction. Decrease in EF from March 13 from 55 to 28%. Start on metoprolol 12.5 mg twice daily. Holding off on lisinopril for now given mild MARU. Patient most likely will need a cardiac angiogram for ACS workup. Will uptitrate GDMT going forward. Patient having high VPC burden. Metoprolol as above would help with the same. Patient will most likely need a LifeVest at discharge. Will confirm with cardiology. (2) Ischemic cardiomyopathy: Patient history of CAD with multiple PCI in the past. As per family members he has had in-stent restenosis in the past. New low EF. Will consult cardiology for further workup and possible cardiac angiogram. Family is agreeable. No active chest pain. (3) CAD (coronary artery disease): No active chest pain. Appreciate A1c, lipid panel. Continue with aspirin 81 mg daily. Holding off on starting given history of liver cirrhosis and optimal lipid panel. Qualifiers: Associated angina: with unspecified form of angina Coronary Disease- Associated Artery/Lesion type: circle artery [place] vs. transplanted heart: n ative heart Qualified Code(s): I25.119 - Atherosclerotic heart disease of circle coronary artery with unspecified angina pectoris (4) Cellulitis: Appreciate ESR, CRP, CT foot. Mild concern for cellulitis. Cannot rule out gout. Check uric acid. Follow-up blood culture. MRSA swab negative. For now continue with IV meropenem. Will most likely transition to oral antibiotics for overall 5-day course on discharge. Continue with dexamethasone which will also help with coronavirus infection. (5) Swelling of lower extremity: Most likely in setting of congestive heart failure. Treatment as above. Hold off on diuretics for now. Patient seems euvolemic. Lower limb Dopplers awaited. (6) Liver cirrhosis: Chronic. LFTs normal limits. Mild bilirubinemia. (7) Thrombocytopenia: Likely in setting of liver cirrhosis (8) Leukopenia: Chronically on the lower side. Currently worsened with mild neutropenia. No need for neutropenic precautions. Check respiratory viral panel. (9) Bigeminy: Past history. Asymptomatic. Potassium within normal limits. Check magnesium level. Potassium around 4, magnesium around 2. Will replace accordingly. Telemetry. (10) Acute kidney injury: Most likely slight concern for CKD. Baseline creatinine 1.1-1.2. Stable at 1.3. Medical reconciliation done for nephrotoxic drugs. Hold off on home dose of lisinopril. Strict input charting, daily weights. (11) Hypertension: Goal blood pressure less than 140/90 mmHg. Hold off on lisinopril given MARU. Metoprolol as above. Restart lisinopril most likely after cardiac angiogram. Qualifiers: Hypertension type: primary hypertension Qualified Code(s): I10 - Essential (primary) hypertension (12) Other coronavirus as the cause of diseases classified elsewhere: Plan Full code Cardiac diet Protonix OPD prophylaxis Heparin 5000 Q8 hourly for DVT prophylaxis Plan for the day: Patient agreeable for further cardiology ACS workup. Will consult cardiology for possible cardiac angiogram. Renal functions have remained stable. Patient is euvolemic. Hold off on any further diuretics. Continue with metoprolol 12.5 mg twice daily. Goal blood pressures less than 140/90 mmHg. Blood pressure is at goal. Hold off on lisinopril for now as patient most likely will go for cardiac angiogram in next 24 hours. Possible n.p.o. after midnight. Continue with current IV antibiotics for now. Most likely will transition to oral antibiotics on discharge for possible mild cellulitis of the great toe. Check uric acid levels for possible gout. Continue with Decadron which has been held both with possible gout and supportive treatment for coronavirus not COVID- 19 infection. Attestations 2 Medical Necessity Statement*: Requires further hospitalization for management of ischemic cardiomyopathy with new EF of 25% as patient is awaiting further ACS workup, uptitration of GDMT for congestive heart failure medications. Diagnoses CHF (congestive heart failure) I50.9 Ischemic cardiomyopathy I25.5 Coronary artery disease involving circle coronary artery of circle heart with angina pectoris I25.119 Associated angina: with unspecified form of angina Coronary Disease-Associated Artery/Lesion type: circle artery [place] vs. transplanted heart: circle heart Cellulitis L03.90 Swelling of lower extremity M79.89 Liver cirrhosis K74.60 Thrombocytopenia D69.6 Leukopenia D72.819 Bigeminy I49.8 Acute kidney injury N17.9 Primary hypertension I10 Hypertension type: primary hypertension Other coronavirus as the cause of diseases classified elsewhere B97.29
[2024-05-22 14:34] LABS: Uric Acid 8.5 mg/dL (3.4-7.0)
[2024-05-22] MEDS: tamsulosin 0.4 mg Capsule 0.8 MG PO (21:33)
[2024-05-22] MEDS: dexamethasone 10 mg/mL INJ 6 MG IVP (21:33)
[2024-05-23] VITALS (59 sets, daily range): BP systolic 126–153; BP diastolic 58–89; PULSE 32–71; RESP 3–20; TEMP 36.4–37.1; O2SAT 92–99
[2024-05-23] MEDS: heparin 5,000 unit/mL INJ 1 mL 5000 UNIT SUBCUT (02:55)
[2024-05-23] MEDS: meropenem 1,000 mg SDV 1000 MG IVP ×3 (02:55→19:29)
[2024-05-23 04:54] LABS: Hematocrit 33.8 % (37-53); Lymphocytes # 0.4 10^3/uL (0.8-4.8); Lymphocytes % 14.3 %; Mean Corpuscular HGB Conc 32.8 g/dL (30-55); Mean Corpuscular Volume 94.4 fl (82-101); Mean Platelet Volume 11.1 fL (7.4-10.4); Monocytes # 0.1 10^3/uL (0.2-0.9); Monocytes % 2.5 %; Neutrophils # 2.31 10^3/uL (1.8-7.7); Neutrophils % 82.8 %; Nucleated Red Blood Cells % 0 %; Platelet Count 47 10^3/cmm (157-399); Red Blood Count 3.58 10^6/uL (3.85-5.65); Red Cell Distribution Width 13.6 % (12.1-15.1); White Blood Count 2.79 10^3/uL (3.29-11.43)
[2024-05-23 05:20] LABS: Alanine Aminotransferase < 5 U/L (0-41); Albumin Level 3.1 g/dL (3.5-5.2); Alkaline Phosphatase 63 U/L (40-130); Anion Gap 13.2 (5-19); Aspartate Amino Transferase 11 U/L (0-40); Blood Urea Nitrogen 37 mg/dL (8-23); Calcium 8.6 mg/dL (8.5-10.5); Carbon Dioxide 25 mmol/L (22-29); Chloride 103 mmol/L (98-107); Globulin 2.8 g/dL (1.3-4.6); Glucose 193 mg/dL (65-115); Osmolality Calculated 298 mOsm/kg (285-295); Potassium 4.2 mmol/L (3.5-5.1); Sodium 137 mmol/L (136-145); Total Bilirubin 0.9 mg/dL (0.15-1.2); Total Protein 5.9 g/dL (6.6-8.7)
[2024-05-23 05:21] LABS: Magnesium 1.9 mg/dL (1.7-2.3)
[2024-05-23] MEDS: aspirin 325 mg Tablet PO (06:43)
[2024-05-23] MEDS: sodium chloride 0.9% 1,000 ML 50 ML IV (06:43)
[2024-05-23] MEDS: diphenhydrAMINE 50 mg Capsule PO (06:43)
--- NOTE | 2024-05-23 06:43 | XACV_ITS ---
Exam Room: [facility] Ht: 191 cm Wt: 98 kg BSA: 2.29 m2 Gender: Male : 1950 Any Known Allergies: Penicillins Exam Priority: Routine Procedure(s): Procedure Description: Diagnostic procedure Procedure Description: Left Heart Catheterization Procedure Description: Left ventriculography Procedure Description: Coronary Angiography Diagnostic Cath Status: Elective Diagnostic Findings * Left Main has no luminal irregularities. * Circumflex has mild luminal irregularities. * Mid Left Anterior Descending: severe 70-80% stenosis, BHAVIN: 3 flow. * Proximal Right Coronary Artery: chronic total occlusion, BHAVIN: 0 flow. * Distal Left Anterior Descending: obstructive 70% stenosis, BHAVIN: 3 flow. Apical LAD has diffuse disease. * Coronary angiography shows right dominance. PCI Status: Elective Interventional Findings * Procedure detail: We had to switch to femoral artery access as radial artery had a significant stenosis. IV heparin was administered to maintain anticoagulation. XB 4.0 guide catheter was used to engage left main artery. Engagement of the vessel stayed suboptimal throughout the procedure. Run-through wire was used to cross the stenosis and was put in distal vessel. We used 2.5 x 12 mm semicompliant balloon to dilate distal LAD stenosis. We then predilated mid LAD stenosis. This was followed by placement of 2.5 x 18 mm resolute [place] drug-eluting stent in the mid LAD. This was postdilated with 2.75 x 12 m NC balloon at high pressure. At this time final angiogram was performed that showed excellent stent expansion, BHAVIN-3 flow and no significant stenosis. Guidewire and guide catheter were removed. Patient left the Piano Accompanist in a stable condition. * Mid Left Anterior Descendin% stenosis treated with a AB TREK 2.50X12 RX BALLOON, NASRA Stringer SANTANA 2.5X18 ENRIKE, and NASRA SANTIAGO EUPHORA RX [id number] BALLOON. 0% residual stenosis, BHAVIN: 3 flow. Conclusions 1. Severe mid LAD stenosis s/p successful revascularization with 1 stent. Severe distal LAD stenosis s/p balloon angioplasty. 2. Mid Left Anterior Descending was treated with a Balloon, Drug Eluting Stent, and Balloon. Recommendations * Dual antiplatelet therapy. * Statin therapy. * Guideline directed heart failure therapy. * Outpatient cardiology follow up in 2 weeks. Interventional RX Recommendation: PCI w/o planned CABG Diagnostic RX Recommendation: PCI w/o planned CABG Anticoagulation: Heparin Pressures Phase:Rest AO : / ( 0 ) @ 8:13:00 AM / ( 0 ) @ 8:25:00 AM 141 / 64 ( 93 ) @ 8:53:00 AM 146 / 64 ( 93 ) @ 8:53:00 AM 71 / 41 ( 53 ) @ 9:23:00 AM LV : 146 / 10 / 22 @ 8:53:00 AM 148 / 11 / 25 @ 8:53:00 AM Valves Phase:DefaultPhase AV : 5.0 @ 9:39:03 AM AV Mean Gradient: 11.0 @ 9:39:03 AM Clinical Evaluation EBL: 5mL-10mL Procedural Details Procedure Consent Obtained. Current Diagnosis : Chest Pain. Pre-Procedure Time Out. Identified patient by full name and date of as verbalized by the patient/guarantor. Does the consent match the physician's order: Yes. Accurate & Complete Informed Consent: Yes. Inpatient/Outpatient History & Physical on Chart: Yes. If H&P is completed, is and addenduem needed: No; If yes, is the addendum complete: N/A. Visualize and Verify Site with Patient/Guarantor: N/A. Relevant Radiology Images available: N/A. The risks, benefits, and alternatives of sedation and/or procedure were discussed by physician. The patient agrees to continue. Procedure started. [facility] Clinical Fraility Score: 5: Mildly Frail. Piano Accompanist Indications: LV Dysfunction. Chest Pain Symptom Assessment: Atypical Angina. Cardiovascular Instability: No. Correct patient, site and procedure confirmed by cath team. Current diagnosis: Chest Pain; LV Dysfunction. PERRLA. Strong, equal hand head knitting machine fixer bilaterally. Lungs clear x 5 lobes. IV Site on Arrival: 20 gauge in the right forearm. IV Fluids: 0.9% NaCl at KVO. 0 mL infused prior to laborer salvage. Pre Procedural Pulses: bilateral posterior tibial was Doppled. Pre Procedural Pulses: bilateral dorsalis pedis was Doppled. Pre Procedural Pulses: bilateral radial was 3+. Oxygen started at 3liters/min via nasal canula. right groin was prepped with chloroprep then draped in the usual sterile fashion. right radial was prepped with chloroprep then draped in the usual sterile fashion. Physician notified. Baseline sample Acquired. HR: 55 BPM. Physician arrived. Physician scrubbed in. Family updated by MD prior to the start of the procedure. Immediate Pre-Procedure Time Out. Correct Patient: Yes; Correct Procedure: Yes; Correct Site: Yes; Correct Patient Position: Yes; Correct Supplies: Yes; Dried Flammable Prep: Yes; Blood Products Available: N/A;. IV is patent but complaining when pushing medication through it. Has no s/s of infection and flushes easily. Decided to start secondary IV. A 20 gauge IV was started in the left anticubital using aseptic technique. Baseline sample Acquired. HR: 62 BPM. Lidocaine 1% infiltrated to the right radial. Arterial access obtained. A 5 haitian TIG catheter in over wire. Unable to advance past the right brachial. Wire out. Hand injection of the right brachial artery. Catheter removed over the wire. MD aborting radial. Attempting to gain access in the right femoral artery. A TR Band was successful obtaining hemostatsis at the Right Radial artery insertion site. TR band placed. Hemostasis obtained. Lidocaine 1% infiltrated to the right groin. Arterial access obtained. A 5 haitian JL4 catheter in over wire. Multiple views taken of left coronary artery. Catheter removed over the exchange wire. A 5 haitian JR4 catheter in over wire. Multiple views taken of right coronary artery. EDP Sample taken: LV 146/10,22; HR: 52 BPM; SpO2: 98%. Pullback taken: LV 148/11,25; AO 141/64(93); Mean: 11mmHg, Peak to Peak: 5mmHg, SEP: 14sec/min; HR: 53 BPM; SpO2: 98%. Catheter dropped into the ventricle over the wire. Catheter removed over the exchange wire. 6 haitian XB 3.5 guide catheter was inserted over the wire. Unable to seat the Guide in the LCS. Guide out over the wire. 6 haitian XB 4 guide catheter was inserted over the wire. Guide seated in the LCS. Multiple views of the LCS taken. Runthrough guidewire was advanced through the guide catheter to lesion in the mid LAD. Guidewire advanced across lesion. Inflation number : 1 A AB TREK 2.50X12 RX BALLOON was prepped and advanced across the Mid LAD , then inflated to 6 MADHU for 0:08 seconds. Inflation number: 2 The AB TREK 2.50X12 RX BALLOON was reinflated across the Mid LAD, to 6 MADHU for 0:10 seconds. Inflation number: 3 The AB TREK 2.50X12 RX BALLOON was reinflated across the Mid LAD, to 6 MADHU for 0:06 seconds. Inflation number: 4 The AB TREK 2.50X12 RX BALLOON was reinflated across the Mid LAD, to 10 MADHU for 0:14 seconds. Inflation number: 5 The AB TREK 2.50X12 RX BALLOON was reinflated across the Mid LAD, to 8 MADHU for 0:09 seconds. Balloon out. Results checked. ENRIKE insterted. No cross. Removed intact. Guideliner inserted. Inflation Number : 6 A MDT R SANTANA 2.5X18 ENRIKE -Lot Number# [id number] was prepped and advanced across the Mid LAD. The stent was deployed at 14 MADHU for 0:18 seconds. EXP 09/14/2025. Stent balloon out over the wire. Results checked. Results checked. Inflation number : 7 A MDT NC EUPHORA RX [id number] BALLOON was prepped and advanced across the Mid LAD , then inflated to 20 MADHU for 0:22 seconds. Results checked. Inflation number: 8 The MDT NC EUPHORA RX [id number] BALLOON was reinflated across the Mid LAD, to 18 MADHU for 0:10 seconds. Balloon out. Results checked. ACT drawn. Results OUT OF RANGE HI seconds. Therapeutic limits - pre-heparin administration 90-150 seconds and monitoring heparin during a vascular procedure >250 seconds. Wire out. Results checked. ACT drawn. Results Out of range HI seconds. Therapeutic limits - pre-heparin administration 90-150 seconds and monitoring heparin during a vascular procedure >250 seconds. Physician review of films. Guide catheter out over the wire. Physician scrubbed out. A Right femoral angiogram was performed to determine safe placement of closure device. Contrast type used: Visipaque 320 mgI/mL, 500 mL bottle. [id number]. Medication waste: Lidocaine-10 ml Nitro- 49.6 mg Versed- 1 mg Fentanyl- 50 mcg. Post-op diagnosis: Severe Mid LAD stensos; S/P PCI X1 ENRIKE. Complications: None. A Suture was successful obtaining hemostatsis at the Right Femoral artery insertion site. Sheath(s) sutured into position with 2-0 silk and sterile 4x4's and Op-site applied over the site. No oozing or signs and symptoms of hematoma noted. Arterial sheath flushed and connected to tranducer and pressure bag with heparinized saline. Post Procedure: Pulses reassessed and unchanged. PERRLA. Strong, equal hand head knitting machine fixer bilaterally. No VTE prophylaxis required. Total IV fluids: 100 mL. Fluoro: 15:00. Estimated blood loss: 5mL-10mL. Responsiveness - Normal response to verbal stimuli; alert and oriented, PERRLA. Airway - Unaffected, no intervention required; spontaneous ventilation. Circulation: W/N/L, pulses unchanged. Nausea/Vomiting: No. Procedure completed. Patient transferred by bed to 1st floor. Vital chart was stopped. Access Site Site: Right Radial artery Sheath Size: 6 Fr Hemostasis Method: TR Band Hemostasis Success: Successful Site: Right Femoral artery Sheath Size: 6 Fr Hemostasis Method: Suture Hemostasis Success: Successful Procedure Medications Start: 8:28 AM Stop: 8:28 AM Medication: Versed 1 mg and Fentanyl 25 mcg Amount: 1 Route: I.V. Start: 8:34 AM Stop: 8:34 AM Medication: Nitrogylcerin Amount: 200 mcg Route: I.A. Start: 9:05 AM Stop: 9:05 AM Medication: Heparin Amount: 8000 units Route: I.V. Start: 9:13 AM Stop: 9:13 AM Medication: Heparin Amount: 1000 units Route: I.V. Start: 9:20 AM Stop: 9:20 AM Medication: Nitrogylcerin Amount: 200 mcg Route: I.A. Start: 9:22 AM Stop: 9:22 AM Medication: Fentanyl Amount: 25 mcg Route: I.V. Start: 9:26 AM Stop: 9:26 AM Medication: Plavix Amount: 600 mg Route: P.O. I, the attending physician, have reviewed and verified all procedure medications. Yes, all medications given per verbal order History/Risk Factors Hypertension: Yes Dyslipidemia: Yes Peripheral Arterial Disease (PAD): No Myocardial Infarction (MN): Yes Obesity: No Renal Disease: No Prior Interventions PCI: Yes CABG: No Valve Surgery: No Report Signatures Finalized by Tan Burns MD on 05/26/2024 11:56 AM
[2024-05-23] MEDS: metoprolol tartrate 25 mg Tablet 12.5 MG PO (07:38)
[2024-05-23] MEDS: folic acid 1 mg Tablet PO (07:38)
[2024-05-23] MEDS: pantoprazole DR 40 mg Tablet PO (07:38)
--- NOTE | 2024-05-23 08:06 | W.PM.OPSUD ---
Surgery/Procedure H&P Update DATE OF PROCEDURE: May 23, 2024 DATE H&P PERFORMED: 05/22/24 H&P UPDATE INFORMATION: I have reviewed H&P completed within last 30 days, I have examined patient prior to procedure and No changes to prior documentation PREOP DIAGNOSIS: LV dysfunction PRIMARY INDICATION FOR PROCEDURE: LV dysfunction PLANNED PROCEDURE: Left heart cath with possible percutaneous coronary intervention PATIENT REASSESSED PRIOR TO SEDATION, WITH NO CHANGE NOTED: Yes PHYSICAL EXAM: alert, oriented x 3, clear to auscultation bilaterally and regular rate & rhythm AIRWAY EVAL/ANESTHESIA PLAN: normal airway, ASA III, Local Anesthesia, Risks, benefits & alternatives of sedation and/or procedure discussed and Patient agrees to continue as planned ADDITIONAL INFORMATION: Moderate sedation
--- NOTE | 2024-05-23 10:06 | PC.NURSE ---
Patient received from prosthetics lab technician s/p [facility] with right radial attempted access and TR band and right femoral access with sheath/pressure bag in place. No s/s of bleeding or hematoma formation to either site. Instructed patient and spouse on site care and restrictions. Both verbalized complete understanding. Fluids running at 50ml/hr per Dr Lyles for kidney function. Will continue to monitor.
--- NOTE | 2024-05-23 10:09 | P.PCN_ITS ---
Procedure Note: Date of procedure: 05/23/24 Pre-procedure diagnosis: LV dysfunction Post-procedure diagnosis: other (Severe multivessel coronary artery disease) Procedure: Left heart cath: Severe 70-80% stenosis in the mid LAD. Distal LAD has RCA is ASSEMBLER WATCH TRAIN. Left circumflex artery is patent, has mild to moderate luminal irregularities. S/p successful revascularization of mid LAD with 1 stent. Balloon angioplasty of distal LAD performed Dual antiplatelet therapy with aspirin and plavix Guideline directed heart failure therapy. Performing Provider: Tan Burns Estimated blood loss (mL): 10 Complications: None Condition: stable Disposition: floor Coding Level of Care Code Acute Code for Chg Fwd
--- NOTE | 2024-05-23 11:57 | P.PN_ITS ---
Subjective 2 Subjective: Patient having successful revascularization of mid LAD with 1 stent. Distal LAD was treated with balloon angioplasty. He is chest pain-free. Vitals/I&O/Wt Last Vital Signs Temp 97.6 F 05/23/24 11:04 Pulse 48 L 05/23/24 11:04 Resp 17 05/23/24 11:04 BP 130/70 05/23/24 11:04 Pulse Ox 96 05/23/24 11:04 O2 Del Method Room Air 05/23/24 11:04 05/22/24 05/23/24 05/23/24 22:59 06:59 14:59 Intake Total 600 / 1080 240 / 1320 Output Total 100 / 200 400 / 600 Balance 500 / 880 -160 / 720 Weight last 48 hrs Weight 217 lb 1.6 oz Weight 213 lb 3.2 oz Physical Exam 2 Narrative: GENERAL: Patient is alert, awake and oriented x3. [] NECK: No jugular vein distension. [] HEENT: No cyanosis. No icterus. No pallor. [] HEART: Regular S1 and S2. No murmur, rub or gallop. [] LUNGS: Diminished air entry bilaterally. CENTRAL NERVOUS SYSTEM: Grossly nonfocal. [] EXTREMITIES: Lower extremities with 1+ edema bilaterally Data 05/24/24 05:35 05/24/24 05:35 A&P Assessment and plan (1) CHF (congestive heart failure): (2) Ischemic cardiomyopathy: (3) CAD (coronary artery disease): Qualifiers: Coronary Disease-Associated Artery/Lesion type: [place] artery [place] vs. transplanted heart: [place] heart Associated angina: with unspecified form of angina Qualified Code(s): I25.119 - Atherosclerotic heart disease of [place] coronary artery with unspecified angina pectoris (4) Cellulitis: (5) Swelling of lower extremity: (6) Liver cirrhosis: (7) Thrombocytopenia: (8) Leukopenia: (9) Bigeminy: (10) Acute kidney injury: (11) Hypertension: Qualifiers: Hypertension type: primary hypertension Qualified Code(s): I10 - Essential (primary) hypertension (12) Other coronavirus as the cause of diseases classified elsewhere: Plan Patient was found to have severe mid LAD stenosis and severe distal LAD. Mid LAD was treated with 1 stent. Distal LAD was treated with balloon angioplasty. Good angiographic result. Will continue with aspirin and Plavix. Will order LifeVest. Continue IV fluids at this time. Monitor renal function. At time of discharge, will go home with low dose of Lasix. Thank you for involving us with care of this patient. We will continue to follow. Please call with questions. Attestations 2 Medical Necessity Statement*: Care expected to cross 2 midnights. Coding Level of Care Code Acute Code for g Fwd Diagnoses CHF (congestive heart failure) I50.9 Ischemic cardiomyopathy I25.5 Coronary artery disease involving [place] coronary artery of [place] heart with angina pectoris I25.119 Coronary Disease-Associated Artery/Lesion type: [place] artery [place] vs. transplanted heart: [place] heart Associated angina: with unspecified form of angina Cellulitis L03.90 Swelling of lower extremity M79.89 Liver cirrhosis K74.60 Thrombocytopenia D69.6 Leukopenia D72.819 Bigeminy I49.8 Acute kidney injury N17.9 Primary hypertension I10 Hypertension type: primary hypertension Other coronavirus as the cause of diseases classified elsewhere B97.29
--- NOTE | 2024-05-23 12:33 | PC.NURSE ---
Addendum entered by Rufina Suggs RN 05/23/24 12:52: Spoke with Dr Lyles and received order to give Atropine 0.5mg Original Note: Patient has heart rate dropping to the 20-30s. Patient remains symptomatic. MD requested EKG at this time.
[2024-05-23 12:51] LABS: Partial Thromboplastin Time 178.9 SECONDS (23.9-36.7)
--- NOTE | 2024-05-23 13:00 | ECG_ITS ---
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 Measurements Intervals [place] Rate: 51 P: 21 MI: 256 QRS: 16 QRSD: 163 T: 233 QT: 503 QTc: 464 Interpretive Statements SINUS BRADYCARDIA WITH FIRST DEGREE AV BLOCK WITH OCCASIONAL VENTRICULAR PREMATURE COMPLEXES RIGHT BUNDLE BRANCH BLOCK [120+ ms QRS DURATION, UPRIGHT V1, 40+ ms S IN I/aVL/V4/V5/V6] MODERATE T-WAVE ABNORMALITY, CONSIDER LATERAL ISCHEMIA [-0.1+ mV T-WAVE IN I/aVL/V5/V6] Compared to ECG 05/20/2024 13:17:05 Ventricular premature complex(es) now present First degree AV block now present Possible ischemia now present Supraventricular rhythm no longer present Myocardial infarct finding no longer present Electronically Signed On 05-24-2024 18:33:36 BUNDLES HANGER by Tan Burns M.D. [email or web address]
[2024-05-23] MEDS: atropine 0.1 mg/mL Syr 10 mL 0.5 MG IVP (13:07)
--- NOTE | 2024-05-23 13:23 | PC.NURSE ---
Dr Burns in to see patient. Informed him of Dr Lyles's order for Atropine 0.5mg IVP andn that he has received this. Dr Burns expressed thanks. Patient remains asymptomatic at this time. Daughter at bedside.
[2024-05-23] MEDS: ondansetron 2 mg/ML SDV 2 mL 4 MG IVP (13:58)
[2024-05-23 15:40] LABS: Partial Thromboplastin Time 38.5 SECONDS (23.9-36.7)
--- NOTE | 2024-05-23 16:42 | P.PN_ITS ---
Subjective 2 Subjective: No acute events overnight. Patient underwent angiogram and PCI early in the morning today. Has been having episodes of bradycardia since the angiogram with heart rate dropping down to mid 30s. Otherwise patient is asymptomatic. Denies any nausea, intake, headache. States he is feeling a lot better. Vitals/I&O/Wt Last Vital Signs Temp 98.0 F 05/23/24 16:00 Pulse 49 L 05/23/24 16:09 Resp 15 05/23/24 16:00 BP 129/61 05/23/24 16:00 Pulse Ox 97 05/23/24 16:00 O2 Del Method Room Air 05/23/24 16:00 05/23/24 05/23/24 05/23/24 06:59 14:59 22:59 Intake Total 240 / 1320 Output Total 400 / 600 Balance -160 / 720 Weight last 48 hrs Weight 98.475 kg Weight 96.706 kg Physical Exam 2 Narrative: General: No acute distress, AO x3, slurred speech HEENT: PERRLA, pupils bilaterally equal and reactive Chest: Bilateral bronchial breath sounds all lung veloz with occasional rhonchi fine crackles CVS: S1-S2 regular, soft pansystolic murmur at apex, frequent missed beats, no tachycardia, no gallops, no rubs Abdomen: Soft, nontender, no organomegaly, bowel sounds present Neuro: No focal deficits, no facial deformity, AO x3, power 5/5 in all limbs Data 05/23/24 03:39 05/23/24 03:39 A&P Assessment and plan (1) CHF (congestive heart failure): New echocardiogram today shows a global LV hypokinesia with an EF of 28%, LVH, mild LV cavity dilatation, grade 1 diastolic dysfunction. Decrease in EF from March 13 from 55 to 28%. Start on metoprolol 12.5 mg twice daily. Holding off on lisinopril for now given mild MARU. Patient most likely will need a cardiac angiogram for ACS workup. Will uptitrate GDMT going forward. Patient having high VPC burden. Metoprolol as above would help with the same. Patient will most likely need a LifeVest at discharge. Will confirm with cardiology. (2) Ischemic cardiomyopathy: Patient history of CAD with multiple PCI in the past. As per family members he has had in-stent restenosis in the past. New low EF. Will consult cardiology for further workup and possible cardiac angiogram. Family is agreeable. No active chest pain. (3) CAD (coronary artery disease): No active chest pain. Appreciate A1c, lipid panel. Continue with aspirin 81 mg daily. Holding off on starting given history of liver cirrhosis and optimal lipid panel. Qualifiers: Coronary Disease-Associated Artery/Lesion type: [place] artery [place] vs. transplanted heart: [place] heart Associated angina: with unspecified form of angina Qualified Code(s): I25.119 - Atherosclerotic heart disease of [place] coronary artery with unspecified angina pectoris (4) Cellulitis: Appreciate ESR, CRP, CT foot. Mild concern for cellulitis. Cannot rule out gout. Check uric acid. Follow-up blood culture. MRSA swab negative. For now continue with IV meropenem. Will most likely transition to oral antibiotics for overall 5-day course on discharge. Continue with dexamethasone which will also help with coronavirus infection. (5) Swelling of lower extremity: Most likely in setting of congestive heart failure. Treatment as above. Hold off on diuretics for now. Patient seems euvolemic. Lower limb Dopplers awaited. (6) Liver cirrhosis: Chronic. LFTs normal limits. Mild bilirubinemia. (7) Thrombocytopenia: Likely in setting of liver cirrhosis (8) Leukopenia: Chronically on the lower side. Currently worsened with mild neutropenia. No need for neutropenic precautions. Check respiratory viral panel. (9) Bigeminy: Past history. Asymptomatic. Potassium within normal limits. Check magnesium level. Potassium around 4, magnesium around 2. Will replace accordingly. Telemetry. (10) Acute kidney injury: Most likely slight concern for CKD. Baseline creatinine 1.1-1.2. Stable at 1.3. Medical reconciliation done for nephrotoxic drugs. Hold off on home dose of lisinopril. Strict input charting, daily weights. (11) Hypertension: Goal blood pressure less than 140/90 mmHg. Hold off on lisinopril given MARU. Metoprolol as above. Restart lisinopril most likely after cardiac angiogram. Qualifiers: Hypertension type: primary hypertension Qualified Code(s): I10 - Essential (primary) hypertension (12) Other coronavirus as the cause of diseases classified elsewhere: (13) Bradycardia: Plan Full code Cardiac diet Protonix for PUD prophylaxis Heparin 5000 Q8 hourly for DVT prophylaxis Plan for the day: Underwent cardiac angiogram and was found to have severe 70 to 80% stenosis of mid LAD, distal LAD, FITTER MACHINIST of RCA. He underwent successful PCI to mid LAD with ENRIKE x 1. Continue aspirin, Plavix. Start on atorvastatin 20 mg nightly. Having significant bradycardia. Hold off on beta-loc for now. Atropine 0.51 times for heart rate of below 35 as needed. Check EKG. Monitor renal functions in evening. Currently on 50 cc/h of normal saline for 1 bag. Monitor for fluid overload. Will need to arrange LifeVest before discharge. Transition to prednisone 40 mg oral daily. Continue with meropenem to finish a 5-day course overall. If getting discharged before that we will transition to cefdinir for overall 5-day course. Attestations 2 Medical Necessity Statement*: Requires further hospitalization for management of ischemic cardiomyopathy with new EF of 25%, post PCI to mid LAD, bradycardia while congestive heart failure medications are adjusted, gout Diagnoses CHF (congestive heart failure) I50.9 Ischemic cardiomyopathy I25.5 Coronary artery disease involving [place] coronary artery of [place] heart with angina pectoris I25.119 Coronary Disease-Associated Artery/Lesion type: [place] artery [place] vs. transplanted heart: [place] heart Associated angina: with unspecified form of angina Cellulitis L03.90 Swelling of lower extremity M79.89 Liver cirrhosis K74.60 Thrombocytopenia D69.6 Leukopenia D72.819 Bigeminy I49.8 Acute kidney injury N17.9 Primary hypertension I10 Hypertension type: primary hypertension Other coronavirus as the cause of diseases classified elsewhere B97.29 Bradycardia R00.1
--- NOTE | 2024-05-23 16:58 | PC.NURSE ---
Initiated sheath removal at 1619 using aseptic technique. Homeostasis achieved immediately. Pressure maintained for 20min. No s/s of bleeding or hematoma formation observed. Covered with folded 2x2s and bio-occlusive dressing. TR band removed at this time. No s/s of bleeding or hematoma formation at this site as well. Instructed patient on site care and restrictions. Patient verbalized complete understanding.
[2024-05-23 19:14] LABS: Blood Urea Nitrogen 38 mg/dL (8-23); Calcium 8.7 mg/dL (8.5-10.5); Carbon Dioxide 28 mmol/L (22-29); Chloride 102 mmol/L (98-107); Creatinine Clr Calc Pharmacy 66.7333; Glucose 155 mg/dL (65-115); Osmolality Calculated 296 mOsm/kg (285-295); Sodium 137 mmol/L (136-145)
[2024-05-23] MEDS: predniSONE 20 mg Tablet 40 MG PO (19:28)
[2024-05-23] MEDS: atorvastatin 40 mg Tablet 20 MG PO (19:28)
[2024-05-23] MEDS: tamsulosin 0.4 mg Capsule 0.8 MG PO (19:29)
[2024-05-24] MEDS: heparin 5,000 unit/mL INJ 1 mL 5000 UNIT SUBCUT ×2 (02:12→08:43)
[2024-05-24 04:00] VITALS: BP 130/64; PULSE 57; RESP 13; TEMP 37.2; O2SAT 90
[2024-05-24] MEDS: meropenem 1,000 mg SDV 1000 MG IVP (04:59)
[2024-05-24 06:00] VITALS: PULSE 47
[2024-05-24 06:10] LABS: Eosinophils % 0.5 %; Hematocrit 32.3 % (37-53); Lymphocytes # 0.3 10^3/uL (0.8-4.8); Lymphocytes % 13.8 %; Mean Corpuscular HGB Conc 32.5 g/dL (30-55); Mean Corpuscular Hemoglobin 30.9 pg (27-33); Mean Platelet Volume 11.1 fL (7.4-10.4); Monocytes # 0.1 10^3/uL (0.2-0.9); Monocytes % 3.6 %; Neutrophils % 81.6 %; Nucleated Red Blood Cells % 0 %; Platelet Count 42 10^3/cmm (157-399); Red Cell Distribution Width 13.7 % (12.1-15.1); White Blood Count 1.96 10^3/uL (3.29-11.43)
[2024-05-24 06:33] LABS: Alanine Aminotransferase < 5 U/L (0-41); Albumin Level 2.7 g/dL (3.5-5.2); Alkaline Phosphatase 55 U/L (40-130); Anion Gap 12.2 (5-19); Aspartate Amino Transferase 10 U/L (0-40); Blood Urea Nitrogen 38 mg/dL (8-23); Calcium 8.4 mg/dL (8.5-10.5); Carbon Dioxide 23 mmol/L (22-29); Chloride 104 mmol/L (98-107); Creatinine Clr Calc Pharmacy 66.7603; Globulin 2.5 g/dL (1.3-4.6); Glucose 175 mg/dL (65-115); Osmolality Calculated 293 mOsm/kg (285-295); Potassium 4.2 mmol/L (3.5-5.1); Sodium 135 mmol/L (136-145); Total Bilirubin 0.8 mg/dL (0.15-1.2); Total Protein 5.2 g/dL (6.6-8.7)
--- NOTE | 2024-05-24 07:05 | PM.PN ---
Vitals/I&O/Wt Last Vital Signs Temp 98.9 F 05/24/24 04:00 Pulse 57 L 05/24/24 04:00 Resp 13 05/24/24 04:00 BP 130/64 05/24/24 04:00 Pulse Ox 90 05/24/24 04:00 O2 Del Method Room Air 05/24/24 04:00 05/23/24 05/24/24 05/24/24 22:59 06:59 14:59 Intake Total 360 / 360 1000 / 1360 Output Total 300 / 300 100 / 400 Balance 60 / 60 900 / 960 Weight last 48 hrs Weight 217 lb 4.8 oz Weight 217 lb 1.6 oz Data 05/24/24 05:35 05/24/24 05:35 Coding Level of Care Code Acute Code for Chg Misael
[2024-05-24 07:44] VITALS: BP 137/84; PULSE 54; RESP 15; TEMP 36.6; O2SAT 97
[2024-05-24] MEDS: aspirin 81 mg EC Tablet PO (08:43)
[2024-05-24] MEDS: pantoprazole DR 40 mg Tablet PO (08:43)
[2024-05-24] MEDS: folic acid 1 mg Tablet PO (08:43)
[2024-05-24] MEDS: clopidogrel 75 mg Tablet PO (08:43)
[2024-05-24] MEDS: predniSONE 20 mg Tablet 40 MG PO (09:24)
--- NOTE | 2024-05-24 10:17 | PM.DCS ---
Discharge Providers Date of Admission: 05/21/24 12:37 Date of Discharge: May 24, 2024 Attending Provider at Admission: Ruby Perez MD Attending Provider at Discharge: Billy Lyles MD Consults: Cardiology: Dr. Burns Primary Care Provider: ALVARO Hurst Diagnoses at Discharge Discharge Diagnosis (1) CHF (congestive heart failure): Status: Acute (2) Ischemic cardiomyopathy: Status: Acute (3) CAD (coronary artery disease): Status: Acute Qualifiers: Associated angina: with unspecified form of angina Coronary Disease-Associated Artery/Lesion type: [place] artery [place] vs. transplanted heart: [place] heart Qualified Code(s): I25.119 - Atherosclerotic heart disease of [place] coronary artery with unspecified angina pectoris (4) Cellulitis: Status: Acute (5) Swelling of lower extremity: Status: Acute (6) Liver cirrhosis: Status: Acute (7) Thrombocytopenia: Status: Acute (8) Leukopenia: Status: Acute (9) [place]: Status: Acute (10) Acute kidney injury: Status: Acute (11) Hypertension: Status: Acute Qualifiers: Hypertension type: primary hypertension Qualified Code(s): I10 - Essential (primary) hypertension (12) Other coronavirus as the cause of diseases classified elsewhere: Status: Acute Reason for Visit Reason for Visit: [place], possible b/c & holding Fluid Brief History: History taken through over the phone. Patient able to collaborate but not able to give much history. Galen Macdonald is a 74 year old male with past medical history of stroke, CAD post PCI with 4 stents, hypertension loss brought into the ER today because of pain in his left great toe ongoing for last 1 week. Patient is not able to stand or wear socks because of tenderness. Pain has been getting worse. He is also been experiencing swelling which has been worsening in both of his legs. As per his usually when he is walking with his walker he tends to hit his toes with a walker. Patient himself denies any nausea vomiting, headache, chest pain, dizziness. Denies any sick contacts. Hospital Course Hospital Course Patient was roomed to the hospital further evaluation and management of right great toe pain with concerns for possible gout versus cellulitis. He was started on broad-spectrum antibiotics. Given concerns for generalized weakness, mild leukopenia more than usual respiratory viral panel was checked and was found to be positive for coronavirus not COVID-19. He was started on IV steroids and supportive treatment. He was found to have bilateral lower limb edema. With concerns for possible congestive heart failure echocardiogram was done which showed a new EF of 25% with mild dilated LV cavity, grade 1 diastolic dysfunction, moderately increased LA size. His great toe pain is most likely in setting of gout. It is improving constantly with oral steroids. Given concerns for new congestive heart failure with sudden decrease in EF from 55 to 28% within 2 months cardiology was consulted and he underwent cardiac angiogram on 05/23. 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 Patent left circumflex artery with mild to moderate luminal irregularities. He underwent successful vascularization of mid LAD with a 1 ENRIKE along with balloon angioplasty of distal LAD. He did have mild bradycardia with metoprolol and hence has been discontinued. He has been discharged in medically stable condition on aspirin, Plavix, statin, home dose of lisinopril along with Lasix 20 mg oral daily. Lifestyle modification with congestive heart failure were discussed in detail with the patient and all the questions were answered. He is to follow-up with his PCP within next 1 week and with nurse practitioner in cardiology office within next 10 days. [facility] has been arranged. Physical Exam Narrative: General: No acute distress, AO x3, slurred speech HEENT: PERRLA, pupils bilaterally equal and reactive Chest: Bilateral bronchial breath sounds all lung veloz with occasional rhonchi fine crackles CVS: S1-S2 regular, soft pansystolic murmur at apex, frequent missed beats, no tachycardia, no gallops, no rubs Abdomen: Soft, nontender, no organomegaly, bowel sounds present Neuro: No focal deficits, no facial deformity, AO x3, power 5/5 in all limbs Discharge Data Studies Completed and Pending Completed Studies During Hospitalization Category Date Time Status CT foot LT wo con* [id number] Routine Cat Scan 05/21/24 00:01 Completed XR chest 1V portable [id number] Stat Exams 05/20/24 12:47 Completed XR foot LT min 3V* [id number] Stat Exams 05/20/24 13:00 [place] [id number] Routine Ultrasound 05/20/24 17:44 Completed CV. echo complete* [id number] Routine Ultrasound 05/20/24 17:41 Completed Pending at discharge Category Date Time Status [employer] request for service Routine Exams 05/23/24 06:43 Taken Radiology Impressions Chest X-Ray 05/20/24 12:47 IMPRESSION: 1. Questionable left basilar airspace opacity. This may be artifactual or may represent atelectasis or infiltrate. 2. Questionable left pleural effusion. Foot X-Ray 05/20/24 13:00 IMPRESSION: 1. Mild soft tissue swelling about the forefoot. 2. No acute fracture or dislocation. Foot CT 05/21/24 00:01 IMPRESSION: 1. Marked soft tissue swelling along the dorsal aspect of the forefoot and circumferential about the ankle. 2. No acute fracture. 3. No cortical irregularity or medullary lucency to suggest osteomyelitis. Echocardiogram: CONCLUSIONS Severe diffuse hypokinesia of the left ventricular end with an ejection fraction of 28%. Mild concentric left ventricular hypertrophy. Mildly dilated LV cavity.Grade I/IV diastolic dysfunction (abnormal relaxation filling pattern), normal to mildly elevated filling pressures. Moderately increased left atrial size. Thickened mitral valve. Mild mitral valve regurgitation. Thickened aortic valve. Mild aortic valve calcification. Trace to mild tricuspid valve regurgitation. The PA pressure could not be calculated because of the poor Doppler signals There is no pericardial effusion. There are no intracardiac masses. Compared to the study from 03/13/2024 there is a significant drop in the LV ejection fraction from 55 to 28% Dr Niharika Garcia MD [facility] (Electronically Signed) Final Date: 21 May 2024 Laboratory Results WBC 1.96 10^3/uL (3.29-11.43) L 05/24/24 05:35 RBC 3.40 10^6/uL (3.85-5.65) L 05/24/24 05:35 Hgb 10.50 g/dL (11.27-16.99) L 05/24/24 05:35 Hct 32.3 % (37-53) L 05/24/24 05:35 MCV 95.0 fl (82-101) 05/24/24 05:35 MCH 30.9 pg (27-33) 05/24/24 05:35 MCHC 32.5 g/dL (30-55) 05/24/24 05:35 RDW 13.7 % (12.1-15.1) 05/24/24 05:35 Plt Count 42 10^3/cmm (157-399) L 05/24/24 05:35 MPV 11.1 fL (7.4-10.4) H 05/24/24 05:35 Neut % (Auto) 81.6 % 05/24/24 05:35 Lymph % (Auto) 13.8 % 05/24/24 05:35 [place] % (Auto) 3.6 % 05/24/24 05:35 Eos % (Auto) 0.5 % 05/24/24 05:35 Baso % (Auto) 0.0 % 05/24/24 05:35 Neut # (Auto) 1.60 10^3/uL (1.8-7.7) L 05/24/24 05:35 Lymph # (Auto) 0.3 10^3/uL (0.8-4.8) L 05/24/24 05:35 [place] # (Auto) 0.1 10^3/uL (0.2-0.9) L 05/24/24 05:35 Eos # (Auto) 0.0 10^3/uL (0.0-0.8) 05/24/24 05:35 Baso # (Auto) 0.0 10^3/uL (0.0-0.1) 05/24/24 05:35 Nucleated RBC % (auto) 0 % 05/24/24 05:35 Nucleated RBCs # 0.0 /100WBC 05/24/24 05:35 ESR < 1 mm/hr (0-10) 05/20/24 22:33 PT 16.30 SECONDS (12.1-14.9) H 05/20/24 13:42 INR 1.27 (0.8-1.2) H 05/20/24 13:42 APTT 38.5 SECONDS (23.9-36.7) H D 05/23/24 15:20 D-Dimer 1.27 ug/mLFEU (0-0.59) H 05/20/24 13:42 Sodium 135 mmol/L (136-145) L 05/24/24 05:35 Potassium 4.2 mmol/L (3.5-5.1) 05/24/24 05:35 Chloride 104 mmol/L (98-107) 05/24/24 05:35 Carbon Dioxide 23 mmol/L (22-29) 05/24/24 05:35 Anion Gap 12.2 (5-19) 05/24/24 05:35 BUN 38 mg/dL (8-23) H 05/24/24 05:35 Creatinine 1.2 mg/dL (0.7-1.2) 05/24/24 05:35 GFR Calculation Not Reportable 05/24/24 05:35 Glucose 175 mg/dL (65-115) H 05/24/24 05:35 Estimat Average Glucose 97 05/21/24 03:50 Hemoglobin A1c 5.0 % (4.0-6.0) 05/21/24 03:50 Calculated Osmolality 293 mOsm/kg (285-295) 05/24/24 05:35 Uric Acid 8.5 mg/dL (3.4-7.0) H 05/22/24 05:34 Calcium 8.4 mg/dL (8.5-10.5) L 05/24/24 05:35 Phosphorus 3.1 mg/dL (2.5-4.5) 05/21/24 03:50 Magnesium 2.0 mg/dL (1.7-2.3) 05/24/24 05:35 Iron 58 ug/dL (59-158) L 05/20/24 13:42 TIBC 187 mcg/dl 05/20/24 13:42 % Saturation 31.0 % (20-50) 05/20/24 13:42 Unsat Iron Binding 129 ug/dL (112-347) 05/20/24 13:42 Total Bilirubin 0.8 mg/dL (0.15-1.2) 05/24/24 05:35 AST 10 U/L (0-40) 05/24/24 05:35 ALT < 5 U/L (0-41) 05/24/24 05:35 Alkaline Phosphatase 55 U/L (40-130) 05/24/24 05:35 Ammonia 26 umol/L (16-60) 05/20/24 13:42 Creatine Kinase 46 U/L (39-308) 05/20/24 13:00 C-Reactive Protein 3.7 mg/L (0.0-4.9) 05/20/24 22:33 NT-Pro-B Natriuret Pep 44345 pg/mL (0-450) H 05/20/24 13:00 Total Protein 5.2 g/dL (6.6-8.7) L 05/24/24 05:35 Albumin 2.7 g/dL (3.5-5.2) L 05/24/24 05:35 Globulin 2.5 g/dL (1.3-4.6) 05/24/24 05:35 Triglycerides 67 mg/dL (0-150) 05/21/24 03:50 Cholesterol 155 mg/dL (0-200) 05/21/24 03:50 LDL Cholesterol, Calc 98 mg/dL (50-129) 05/21/24 03:50 HDL Cholesterol 44 mg/dL (60-100) L 05/21/24 03:50 LDL/HDL Ratio 2.23 RATIO (0.00-3.22) 05/21/24 03:50 Cholesterol/HDL Ratio 3.52 mg/dL (1.0-5.00) 05/21/24 03:50 Vitamin B12 357 pg/mL (232-1245) 05/20/24 13:42 Folate 5.1 ng/mL (4.5-32.2) 05/21/24 03:50 Procalcitonin 0.09 ng/mL (0-0.5) 05/21/24 03:50 TSH 0.73 uIU/mL (0.27-4.20) 05/20/24 13:42 Urine Color Yellow (Yellow) 05/20/24 13:52 Urine Appearance Clear (CLEAR) 05/20/24 13:52 Urine pH 6.5 (5-7) 05/20/24 13:52 Ur Specific [place] 1.016 (1.005-1.030) 05/20/24 13:52 Urine Protein 1+ (Negative) A 05/20/24 13:52 Urine Glucose (UA) Negative (Normal) 05/20/24 13:52 Urine Ketones Negative (Negative) 05/20/24 13:52 Urine Blood 1+ (Negative) A 05/20/24 13:52 Urine Nitrate Negative (Negative) 05/20/24 13:52 Urine Bilirubin Negative (Negative) 05/20/24 13:52 Urine Urobilinogen 2.0 mg/dL (Negative) H 05/20/24 13:52 Ur Leukocyte Esterase Negative (Negative) 05/20/24 13:52 Urine RBC 6-10 /hpf (0-2) 05/20/24 13:52 Urine WBC 0-5 /hpf (0-5) 05/20/24 13:52 Ur Squamous Epith Cells 0-5 /hpf (0-5) 05/20/24 13:52 Amorphous Sediment Not Reportable 05/20/24 13:52 Urine Bacteria None seen /hpf (NONE) 05/20/24 13:52 Hyaline Casts 0.81 /lpf 05/20/24 13:52 Nasal MRSA (PCR) Not detected (Negative) 05/20/24 18:40 Adenovirus (PCR) Not detected (NOT DETECT) 05/20/24 18:32 C. pneumoniae DNA (PCR) Not detected (NOT DETECT) 05/20/24 18:32 Coronavirus 229E (PCR) Detected (NOT DETECT) A 05/20/24 18:32 Human Metapneumovir PCR Not detected (NOT DETECT) 05/20/24 18:32 Influenza A (H1) PCR Not detected (NOT DETECT) 05/20/24 18:32 Influ A (H1/09) PCR Not detected (NOT DETECT) 05/20/24 18:32 Influenza A (H3) PCR Not detected (NOT DETECT) 05/20/24 18:32 Influenza Type A (PCR) Not detected (NOT DETECT) 05/20/24 18:32 Influenza Type B (PCR) Not detected (NOT DETECT) 05/20/24 18:32 M. pneumoniae (PCR) Not detected (NOT DETECT) 05/20/24 18:32 Parainfluenza 1 (PCR) Not detected (NOT DETECT) 05/20/24 18:32 Parainfluenza 2 (PCR) Not detected (NOT DETECT) 05/20/24 18:32 Parainfluenza 3 (PCR) Not detected (NOT DETECT) 05/20/24 18:32 Parainfluenza 4 (PCR) Not detected (NOT DETECT) 05/20/24 18:32 RSV Type A (PCR) Not detected (NOT DETECT) 05/20/24 18:32 RSV Type B (PCR) Not detected (NOT DETECT) 05/20/24 18:32 Entero/Rhino (PCR) Not detected (NOT DETECT) 05/20/24 18:32 SARS-CoV-2 (PCR) Not detected (NOT DETECT) 05/20/24 18:32 Vitals Last Vital Signs Temp 97.8 F 05/24/24 07:44 Pulse 54 L 05/24/24 07:44 Resp 15 05/24/24 07:44 BP 137/84 05/24/24 07:44 Pulse Ox 97 05/24/24 07:44 O2 Del Method Room Air 05/24/24 07:44 Discharge Plan Discharge Patient Disposition: Home Condition: Stable Prescriptions: New aspirin 81 mg Tablet,Delayed Release (Dr/Ec) 81 mg PO DAILY Qty: 30 0RF clopidogrel 75 mg Tablet 75 mg PO DAILY Qty: 30 0RF atorvastatin 40 mg Tablet 20 mg PO BEDTIME Qty: 30 0RF prednisone 20 mg Tablet 40 mg PO QAM 3 Days Qty: 6 0RF furosemide [Lasix] 20 mg tablet 20 mg PO QAM Qty: 30 0RF Continued nitroglycerin 0.4 mg tablet, sublingual 0.4 mg SUBLINGUAL Q5M PRN (Reason: chest pain) Qty: 20 3RF Rx Instructions: until response; do not exceed 3 doses per episode acetaminophen 500 mg tablet 500 mg PO Q4H PRN (Reason: PAIN) tamsulosin [Flomax] 0.4 mg capsule 0.4 mg PO 09, lisinopril 10 mg Tablet 10 mg PO DAILY folic acid 1 mg Tablet 1 mg PO DAILY omeprazole 20 mg Tablet,Delayed Release (Dr/Ec) 20 mg PO BID cholecalciferol (vitamin D3) [Vitamin D3] 50 mcg (2,000 unit) Capsule 50 mcg PO DAILY potassium chloride 20 mEq Tablet Extended Release 10 meq PO DAILY Rx Instructions: take 1/2 tablet by mouth daily Discharge Orders: Discharge Order (Routine); Ordered 05/24/24 Ordered By: Billy Lyles Referrals: Vee Butler NP [Nurse Practitioner] - 7-10 days Tan Burns M.D [Physician] - 3 weeks Ines Dooley FNP [Primary Care Provider] - 05/31/24 9:30 am Discharge Diet: Cardiac Discharge Activity: Resume usual activity and Increase activity as tolerated Patient Instructions: Bradycardia, Heart Failure (DC), Coronary Angioplasty (DC), Opioid Safety Activity Restrictions/Additional Instructions: Restrict fluid intake to less than 1500 cc, salt intake to less than 2 g daily. Advised to check his weight daily at home. Is advised that weight today would be the dry weight and if body weight increases by around 5 pounds, patient is to take an extra dose of Lasix daily till body weight comes down to weight today. If not able to come down to dry body weight in 1 week, then is to call cardiology office for further recommendations. Patient was counseled in detail to take medications regularly as prescribed. Follow-up with a primary care provider within next 1 week. Follow-up with nurse practitioner from cardiology office within next 10 days and with in next 3 weeks. Check your blood pressure daily at home maintain a blood pressure diary and follow-up with the primary care provider within next 2 weeks for further adjustment of antihypertensive as needed. Discharge Attestations Time Spent in Discharge Care*: greater than 30 min Specific Discharge Activities: educating patient, educating and/or supporting family/caregiver, discussing with pcp/other providers, discussing with window caser/social workers/dc planners, documenting/other paperwork and evaluating patient/reviewing data Status at Discharge: Cognitive status at discharge: cognitively intact, Behavioral status at discharge: cooperative, Functional status at discharge: uses cane/walker, Overall status at discharge: patient is back to baseline Quality Metrics Clinical Quality Measures [ No reported AMI, CVA or VTE this stay] Coding Level of Care Code 91136 Total time (in minutes) for Discharge: 60 Diagnoses CHF (congestive heart failure) I50.9 Ischemic cardiomyopathy I25.5 Coronary artery disease involving [place] coronary artery of [place] heart with angina pectoris I25.119 Associated angina: with unspecified form of angina Coronary Disease-Associated Artery/Lesion type: [place] artery [place] vs. transplanted heart: [place] heart Cellulitis L03.90 Swelling of lower extremity M79.89 Liver cirrhosis K74.60 Thrombocytopenia D69.6 Leukopenia D72.819 [place] I49.8 Acute kidney injury N17.9 Primary hypertension I10 Hypertension type: primary hypertension Other coronavirus as the cause of diseases classified elsewhere B97.29
--- NOTE | 2024-05-24 11:04 | PC.SOCIAL ---
IMM Updated Updated pt & on IMM. No questions voiced. Provided pt a copy. Initialed, dated, & timed a copy & placed in chart.
[2024-05-24 11:42] VITALS: BP 136/73; PULSE 67; RESP 16; TEMP 36.6
[2024-05-24 13:13] VITALS: BP 136/73; PULSE 67; RESP 16; TEMP 36.6; O2SAT 96
== END 2024-05-24 13:38 | disposition home or self-care (01) | DRG 322 ==
LOC: ER 12:48 → CSU 16:17
PROVIDERS: Internal Medicine; Admitting Provider Student in an Organized Health Care Education/Training Program; Emergency Provider Family Medicine; PCP Nurse Practitioner; Visit Provider Student in an Organized Health Care Education/Training Program
PROC: 027034Z Dilation of Coronary Artery, One Artery with Drug-eluting Intraluminal Device, Percutaneous Approach (ICD-10-PCS; principal; 2024-05-23 07:45)
PROC: 027034Z Dilation of Coronary Artery, One Artery with Drug-eluting Intraluminal Device, Percutaneous Approach (ICD-10-PCS; 2024-05-23 07:45)
DX: I25.119 Atherosclerotic heart disease of native coronary artery with unspecified angina pectoris (principal); N17.9 Acute kidney failure, unspecified; I11.0 Hypertensive heart disease with heart failure; I50.9 Heart failure, unspecified; L03.032 Cellulitis of left toe; K74.60 Unspecified cirrhosis of liver; D69.6 Thrombocytopenia, unspecified; D72.819 Decreased white blood cell count, unspecified; B34.2 Coronavirus infection, unspecified; M10.9 Gout, unspecified; N40.0 Benign prostatic hyperplasia without lower urinary tract symptoms; K21.9 Gastro-esophageal reflux disease without esophagitis; R00.1 Bradycardia, unspecified; Z86.73 Personal history of transient ischemic attack (TIA), and cerebral infarction without residual deficits; Z95.5 Presence of coronary angioplasty implant and graft; Z87.891 Personal history of nicotine dependence
CPT/HCPCS: 36415; 71045; 73630; 73700; 80048; 80053; 80061; 81001; 82140; 82550; 82607; 82746; 83036; 83540; 83550; 83735; 83880; 84100; 84145; 84443; 84550; 85025; 85347; 85378; 85610; 85651; 85730; 86140; 87486; 87581; 87633; 93005; 93306; 93458; 93970; 94664; 96372; 96374; 96376; 99152; 99153; C1725; C1769; C1874; C1887; C1894; C9600; G0378; J0461; J1100; J1644; J1940; J2185; J2250; J2405; J3010; J3370; J3490; J7030; J7512; Q0163; Q9967

== ENCOUNTER 2024-05-31 10:43 | Emergency (ER) | payer OTHER, SELFPAY ==
[2024-05-31 11:15] VITALS: BP 149/76; PULSE 63; RESP 18; TEMP 36.5; O2SAT 100; BMI 24.7
--- NOTE | 2024-05-31 11:45 | XRR_ITS ---
PROCEDURE INFORMATION: Exam: XR Chest Exam date and time: 05/31/2024 12:59 PM Age: 74 years old Clinical indication: Other: Weakness TECHNIQUE: Imaging protocol: Radiologic exam of the chest. Views: 1 view. COMPARISON: CR XR chest 1V portable [id number] 05/20/2024 1:08 PM FINDINGS: Lungs: Unremarkable. No consolidation. Pleural spaces: Unremarkable. No pleural effusion. No pneumothorax. Heart/Mediastinum: Unremarkable. No cardiomegaly. Bones/joints: Unremarkable. XR/XR chest 1V portable [id number] IMPRESSION: No acute findings.
[2024-05-31 12:23] LABS: Basophils % 0.2 %; Eosinophils # 0.1 10^3/uL (0.0-0.8); Hematocrit 35.8 % (37-53); Lymphocytes # 0.8 10^3/uL (0.8-4.8); Lymphocytes % 14.5 %; Mean Corpuscular HGB Conc 33.5 g/dL (30-55); Mean Corpuscular Hemoglobin 31.5 pg (27-33); Mean Platelet Volume 12.5 fL (7.4-10.4); Monocytes # 0.3 10^3/uL (0.2-0.9); Monocytes % 5.2 %; Neutrophils # 4.04 10^3/uL (1.8-7.7); Neutrophils % 78.3 %; Nucleated Red Blood Cells % 0 %; Platelet Count 42 10^3/cmm (157-399); Red Blood Count 3.81 10^6/uL (3.85-5.65); Red Cell Distribution Width 13.7 % (12.1-15.1); White Blood Count 5.16 10^3/uL (3.29-11.43)
[2024-05-31 12:42] LABS: Alanine Aminotransferase 8 U/L (0-41); Albumin Level 3.1 g/dL (3.5-5.2); Alkaline Phosphatase 82 U/L (40-130); Anion Gap 13.2 (5-19); Aspartate Amino Transferase 14 U/L (0-40); Blood Urea Nitrogen 20 mg/dL (8-23); C Reactive Protein 57.5 mg/L (0.0-4.9); Carbon Dioxide 28 mmol/L (22-29); Chloride 102 mmol/L (98-107); Creatinine Clr Calc Pharmacy 69.9995; Globulin 3.1 g/dL (1.3-4.6); Glucose 129 mg/dL (65-115); Osmolality Calculated 294 mOsm/kg (285-295); Potassium 3.2 mmol/L (3.5-5.1); Sodium 140 mmol/L (136-145); Total Bilirubin 3.8 mg/dL (0.15-1.2); Total Protein 6.2 g/dL (6.6-8.7)
[2024-05-31 12:43] LABS: Lactic Sepsis W/Reflex 3.2 mmol/L (0.5-2.2)
[2024-05-31 13:36] LABS: Bilirubin Urine Negative (Negative); Blood Urine 2+ (Negative); Glucose Urine UA Negative (Normal); Ketones Urine Negative (Negative); Leukocyte Esterase Urine Trace (Negative); Nitrate Urine Negative (Negative); Protein Urine 1+ (Negative); Specific Gravity, Urine 1.015 (1.005-1.030); Urine Appearance Clear (CLEAR); Urine Color Yellow (Yellow); pH Urine 5.5 (5-7)
[2024-05-31 13:40] LABS: Bacteria Urine None Seen /hpf; Hyaline Casts Urine 5.77 /lpf; Squamous Epithelial Cell Urine 0-5 /hpf (0-5); WBC Urine 0-5 /hpf (0-5)
[2024-05-31 13:48] LABS: Add Urine Culture? No
--- NOTE | 2024-05-31 14:00 | ED_ITS ---
HPI - General Adult 2 General: Chief complaint: Upper Respiratory Infection Stated complaint: SOB Time Seen by Provider: 05/31/24 11:44 Source: patient and family Mode of arrival: wheelchair Limitations: no limitations History of Present Illness: Patient is a 74-year-old male presents to ED today along with family for concerns of body aches, subjective fevers, sore throat, not feeling well x 2 days. He is not having any specific pains-just achy all over. Patient was released from the hospital approximately a week ago. Several comorbidities addressed during his hospitalization. Documentation of this hospitalization was reviewed. [facility] sound junk[facility] . They were concerned for pneumonia thus sent patient to the emergency department. Patient has not had a cough. He arrives in no acute distress with completely stable vital signs. He has no complaints of chest pain or difficulty breathing. While in the hospital he did test positive for coronavirus, not COVID-19. Onset (ago): day(s) Relieving factors: none Exacerbating factors: none Associated symptoms: Reports no associated symptoms; Deny chest pain, dyspnea, headache(s), nausea, rash or vomiting Treatments prior to arrival: none Related Data Home Medications Medication Instructions Recorded Confirmed acetaminophen 500 mg tablet 500 mg PO Q4H PRN PAIN 06/10/19 05/20/24 tamsulosin 0.4 mg capsule (Flomax) 0.4 mg PO 08/08/23 05/21/24 cholecalciferol (vitamin D3) 50 50 mcg PO DAILY 05/20/24 05/20/24 mcg (2,000 unit) capsule (Vitamin D3) folic acid 1 mg tablet 1 mg PO DAILY 05/20/24 05/20/24 lisinopril 10 mg tablet 10 mg PO DAILY 05/20/24 05/20/24 omeprazole 20 mg tablet,delayed 20 mg PO BID 05/20/24 05/20/24 release potassium chloride 20 mEq 10 meq PO DAILY 05/20/24 05/20/24 tablet,extended release Previous Rx's Medication Instructions Recorded nitroglycerin 0.4 mg sublingual 0.4 mg sublingual Q5M PRN chest 08/05/19 tablet pain #20 tabs aspirin 81 mg tablet,delayed 81 mg PO DAILY #30 tabs 05/24/24 release atorvastatin 40 mg tablet 20 mg (1/2 x 40 mg) PO BEDTIME #30 05/24/24 tabs clopidogrel 75 mg tablet 75 mg PO DAILY #30 tabs 05/24/24 furosemide 20 mg tablet (Lasix) 20 mg PO QAM #30 tabs 05/24/24 Allergies Allergy/AdvReac Type Severity Reaction Status Date / Time Penicillins AdvReac ADR-Cramping Verified 05/07/24 16:03 of the Muscles Review of Systems 2 Const: Reports: fever(s) (subjective) and body aches Eyes: Denies: change in vision, blurry vision or photophobia ENMT: Reports: throat pain and odynophagia; Denies: ear or mastoid pain, nasal discharge, nasal congestion or sinus pain Card: Denies: chest pain Resp: Denies: dyspnea, productive cough, non-productive cough, wheezing, pain on inspiration, hemoptysis or chest congestion GI: Denies: abdominal pain, nausea, vomiting or diarrhea Skin/Breast: Denies: rash Neuro: Denies: headache(s) or dizziness PFSH ED 2 PFSH: Medical History Hypernatremia Hepatic encephalopathy Liver cirrhosis Recent cerebrovascular accident (CVA) CHF (congestive heart failure) Extremity ischemia Arrhythmia Elevated bilirubin Dehydration Thrombocytopenia Hyperbilirubinemia Chest pain Ischemic cardiomyopathy Myocardial infarction Obesity Chronic pain Benign prostatic hyperplasia with lower urinary tract symptoms Hyperlipidemia GERD (gastroesophageal reflux disease) Status post replacement of knee joint Diabetes mellitus Hypertension CAD (coronary artery disease) H/O adenomatous polyp of colon Surgical History Hx of hernia repair Hx of knee surgery Hx of appendectomy Post PTCA Family History Mother Cancer Denies family history of Diabetes CAD (coronary artery disease) Clotting disorder Dementia Hyperlipidemia Psychiatric illness Chronic kidney disease (CKD) Suicide Anesthesia complication Bleeding disorder Family history of premature coronary artery disease Lung disease Hypertension Stroke Social History Smoking and tobacco/nicotine status: former use of tobacco/nicotine Alcohol intake: former Substance/Drug Use: never Lives independently: Yes Household members: spouse Marital status: Current occupational status: retired Physical Exam 2 Const: COMMON NORMALS: no acute distress, average body habitus, patient oriented x3, no limitations, healthy appearing, alert and well nourished G ENERAL APPEARANCE: cooperative ORIENTATION/CONSCIOUSNESS: Yes awake, Yes oriented to person, Yes oriented to place and Yes oriented to time HENMT: COMMON NORMALS: normocephalic and atraumatic HEAD & SCALP: normal to inspection, normocephalic and atraumatic FACE & SINUS: normal facial exam MOUTH: Normal oral and palatal mucosa present and lip normal THROAT: p osterior oropharynx normal and tonsils normal Eye: COMMON NORMALS: no scleral icterus GENERAL EYE: appearance normal, both eyes and all related structures Neck/C-Spine: COMMON NORMALS: no lymphadenopathy GENERAL: Yes normal visual inspection, No anterior neck swelling and No submandibular swelling Resp: COMMON NORMALS: normal respiratory effort and clear to auscultation bilaterally AUSCULTATION: clear to auscultation bilaterally Cardio: COMMON NORMALS: regular rate and regular rhythm RATE: regular rate RHYTHM: regular rhythm GI: COMMON NORMALS: Normal to inspection, nondistended, normoactive bowel sounds present, Soft to palpation, non-tender, No hepatosplenomegaly present and no masses PALPATION: Yes Soft to palpation and Yes No hepatosplenomegaly present : COMMON NORMALS: Yes no CVA tenderness BLADDER/KIDNEY EXAM: Yes no CVA tenderness Back/Pelvis: COMMON NORMALS: no CVA tenderness Extremity: GENERAL: Yes normal exam except as noted Neuro: COMMON NORMALS: patient oriented x3, moves all extremities, no focal motor deficits and no sensory deficits noted SENSORIUM/ORIENTATION: Yes alert, Yes oriented to person, Yes oriented to place and Yes oriented to time Course 2 Vital Signs: Vital signs: Vital Signs Temperature 97.7 F 05/31/24 11:15 Pulse Rate 66 05/31/24 14:35 Respiratory Rate 18 05/31/24 11:15 Blood Pressure 149/76 05/31/24 11:15 Pulse Oximetry 99 05/31/24 14:35 Oxygen Delivery Me thod Room Air 05/31/24 11:15 [facility] - General Adult Medical Decision Making Patient arrives in no acute distress with completely stable vital signs. Previous documentation from recent hospitalization reviewed. He is here with complaints of subjective fevers, body aches, sore throat. He did test positive for coronavirus while in the hospital. [facility] His CXR is unremarkable. On his blood work, he has a normal white count. Chronic thrombocytopenia. His platelet count today is the same as at time of discharge. Family states they do see a air brakes inspector in [place] for this. Chemistry showing mild hypokalemia and mild hypocalcemia. His lactic is mildly elevated. Isolated hyperbilirubinemia at 3.8. This has been intermittently elevated for years. Remainder of LFTs are unremarkable. He has no complaints of abdominal pain today and his abdomen is soft and nontender. His UA is unremarkable. Respiratory panel collected and pending. At this time I do not see any indication for repeat hospitalization. Recommend he follow-up with his primary care provider. Will contact for any positive results regarding his respiratory panel. Medical Records I reviewed the patient's medical records. Lab Data I reviewed the patient's lab results. 05/31/24 12:04 05/31/24 12:04 Radiology Impressions Chest X-Ray 05/31/24 11:45 IMPRESSION: No acute findings. Laboratory Results WBC 5.16 10^3/uL (3.29-11.43) 05/31/24 12:04 RBC 3.81 10^6/uL (3.85-5.65) L 05/31/24 12:04 Hgb 12.00 g/dL (11.27-16.99) 05/31/24 12:04 Hct 35.8 % (37-53) L 05/31/24 12:04 MCV 94.0 fl (82-101) 05/31/24 12:04 MCH 31.5 pg (27-33) 05/31/24 12:04 MCHC 33.5 g/dL (30-55) 05/31/24 12:04 RDW 13.7 % (12.1-15.1) 05/31/24 12:04 Plt Count 42 10^3/cmm (157-399) L 05/31/24 12:04 MPV 12.5 fL (7.4-10.4) H 05/31/24 12:04 Neut % (Auto) 78.3 % 05/31/24 12:04 Lymph % (Auto) 14.5 % 05/31/24 12:04 [place] % (Auto) 5.2 % 05/31/24 12:04 Eos % (Auto) 1.0 % 05/31/24 12:04 Baso % (Auto) 0.2 % 05/31/24 12:04 Neut # (Auto) 4.04 10^3/uL (1.8-7.7) 05/31/24 12:04 Lymph # (Auto) 0.8 10^3/uL (0.8-4.8) 05/31/24 12:04 [place] # (Auto) 0.3 10^3/uL (0.2-0.9) 05/31/24 12:04 Eos # (Auto) 0.1 10^3/uL (0.0-0.8) 05/31/24 12:04 Baso # (Auto) 0.0 10^3/uL (0.0-0.1) 05/31/24 12:04 Nucleated RBC % (auto) 0 % 05/31/24 12:04 Nucleated RBCs # 0.0 /100WBC 05/31/24 12:04 Sodium 140 mmol/L (136-145) 05/31/24 12:04 Potassium 3.2 mmol/L (3.5-5.1) L 05/31/24 12:04 Chloride 102 mmol/L (98-107) 05/31/24 12:04 Carbon Dioxide 28 mmol/L (22-29) 05/31/24 12:04 Anion Gap 13.2 (5-19) 05/31/24 12:04 BUN 20 mg/dL (8-23) 05/31/24 12:04 Creatinine 1.1 mg/dL (0.7-1.2) 05/31/24 12:04 GFR Calculation Not Reportable 05/31/24 12:04 Glucose 129 mg/dL (65-115) H 05/31/24 12:04 Calculated Osmolality 294 mOsm/kg (285-295) 05/31/24 12:04 Lactic Acid 3.2 mmol/L (0.5-2.2) H 05/31/24 12:04 Calcium 8.0 mg/dL (8.5-10.5) L 05/31/24 12:04 Total Bilirubin 3.8 mg/dL (0.15-1.2) H 05/31/24 12:04 AST 14 U/L (0-40) 05/31/24 12:04 ALT 8 U/L (0-41) 05/31/24 12:04 Alkaline Phosphatase 82 U/L (40-130) 05/31/24 12:04 C-Reactive Protein 57.5 mg/L (0.0-4.9) H 05/31/24 12:04 Total Protein 6.2 g/dL (6.6-8.7) L 05/31/24 12:04 Albumin 3.1 g/dL (3.5-5.2) L 05/31/24 12:04 Globulin 3.1 g/dL (1.3-4.6) 05/31/24 12:04 Urine Color Yellow (Yellow) 05/31/24 13:25 Urine Appearance Clear (CLEAR) 05/31/24 13:25 Urine pH 5.5 (5-7) 05/31/24 13:25 Ur Specific [place] 1.015 (1.005-1.030) 05/31/24 13:25 Urine Protein 1+ (Negative) A 05/31/24 13:25 Urine Glucose (UA) Negative (Normal) 05/31/24 13:25 Urine Ketones Negative (Negative) 05/31/24 13:25 Urine Blood 2+ (Negative) A 05/31/24 13:25 Urine Nitrate Negative (Negative) 05/31/24 13:25 Urine Bilirubin Negative (Negative) 05/31/24 13:25 Urine Urobilinogen 1.0 mg/dL (Negative) 05/31/24 13:25 Ur Leukocyte Esterase Trace (Negative) A 05/31/24 13:25 Urine RBC 3-5 /hpf (0-2) 05/31/24 13:25 Urine WBC 0-5 /hpf (0-5) 05/31/24 13:25 Ur Squamous Epith Cells 0-5 /hpf (0-5) 05/31/24 13:25 Amorphous Sediment Not Reportable 05/31/24 13:25 Urine Bacteria None seen /hpf (NONE) 05/31/24 13:25 Hyaline Casts 5.77 /lpf 05/31/24 13:25 Adenovirus (PCR) Not detected (NOT DETECT) 05/31/24 13:25 C. pneumoniae DNA (PCR) Not detected (NOT DETECT) 05/31/24 13:25 Coronavirus 229E (PCR) Not detected (NOT DETECT) 05/31/24 13:25 Human Metapneumovir PCR Not detected (NOT DETECT) 05/31/24 13:25 Influenza A (H1) PCR Not detected (NOT DETECT) 05/31/24 13:25 Influ A (H1/09) PCR Not detected (NOT DETECT) 05/31/24 13:25 Influenza A (H3) PCR Not detected (NOT DETECT) 05/31/24 13:25 Influenza Type A (PCR) Not detected (NOT DETECT) 05/31/24 13:25 Influenza Type B (PCR) Not detected (NOT DETECT) 05/31/24 13:25 M. pneumoniae (PCR) Not detected (NOT DETECT) 05/31/24 13:25 Parainfluenza 1 (PCR) Not detected (NOT DETECT) 05/31/24 13:25 Parainfluenza 2 (PCR) Not detected (NOT DETECT) 05/31/24 13:25 Parainfluenza 3 (PCR) Not detected (NOT DETECT) 05/31/24 13:25 Parainfluenza 4 (PCR) Not detected (NOT DETECT) 05/31/24 13:25 RSV Type A (PCR) Not detected (NOT DETECT) 05/31/24 13:25 RSV Type B (PCR) Not detected (NOT DETECT) 05/31/24 13:25 Entero/Rhino (PCR) Not detected (NOT DETECT) 05/31/24 13:25 SARS-CoV-2 (PCR) Not detected (NOT DETECT) 05/31/24 13:25 All radiology interpretation(s) finalized by discharge Discharge Plan Discharge Patient Disposition: Home Clinical Impression: Thrombocytopenia, Coronavirus infection Condition: Stable Prescriptions: No Action nitroglycerin 0.4 mg tablet, sublingual 0.4 mg SUBLINGUAL Q5M PRN (Reason: chest pain) Qty: 20 3RF Rx Instructions: until response; do not exceed 3 doses per episode acetaminophen 500 mg tablet 500 mg PO Q4H PRN (Reason: PAIN) tamsulosin [Flomax] 0.4 mg capsule 0.4 mg PO , lisinopril 10 mg Tablet 10 mg PO DAILY folic acid 1 mg Tablet 1 mg PO DAILY omeprazole 20 mg Tablet,Delayed Release (Dr/Ec) 20 mg PO BID cholecalciferol (vitamin D3) [Vitamin D3] 50 mcg (2,000 unit) Capsule 50 mcg PO DAILY potassium chloride 20 mEq Tablet Extended Release 10 meq PO DAILY Rx Instructions: take 1/2 tablet by mouth daily atorvastatin 40 mg Tablet 20 mg PO BEDTIME Qty: 30 0RF clopidogrel 75 mg Tablet 75 mg PO DAILY Qty: 30 0RF aspirin 81 mg Tablet,Delayed Release (Dr/Ec) 81 mg PO DAILY Qty: 30 0RF furosemide [Lasix] 20 mg tablet 20 mg PO QAM Qty: 30 0RF Discharge Orders: Discharge ED (Routine); Ordered 05/31/24 Ordered By: Vee Denney Referrals: Ines Dooley FNP [Primary Care Provider] - Activity Restrictions/Additional Instructions: As we discussed, I will contact you regarding any positive results of his respiratory panel. Please follow-up with his primary care provider next week for reevaluation. He needs to return to the emergency department sooner for any worsening or concerning symptoms you have. Coding Level of Care Code ED Turbine Engineer for Maicol Douglas
[2024-05-31 14:04] LABS: Reflex Lactate Order REFLEX LACTIC ORDERD
[2024-05-31 14:35] VITALS: PULSE 66; O2SAT 99
[2024-05-31 15:23] LABS: Adenovirus Not Detected (NOT DETECT); Chlamydia Pneumoniae Not Detected (NOT DETECT); Coronavirus 229E,HKU1,NL63,OC4 Not Detected (NOT DETECT); Human Metapneumovirus Not Detected (NOT DETECT); Human Rhinovirus/Enterovirus Not Detected (NOT DETECT); Influenza A Not Detected (NOT DETECT); Influenza A H1 Not Detected (NOT DETECT); Influenza A H1-2009 Not Detected (NOT DETECT); Influenza A H3 Not Detected (NOT DETECT); Influenza B Not Detected (NOT DETECT); Mycoplasma Pneumoniae Not Detected (NOT DETECT); Parainfluenza Virus Type 1 Not Detected (NOT DETECT); Parainfluenza Virus Type 2 Not Detected (NOT DETECT); Parainfluenza Virus Type 3 Not Detected (NOT DETECT); Parainfluenza Virus Type 4 Not Detected (NOT DETECT); Respiratory Syncytial Virus A Not Detected (NOT DETECT); Respiratory Syncytial Virus B Not Detected (NOT DETECT); SARS-COV-2 Not Detected (NOT DETECT)
== END 2024-05-31 14:35 | disposition home or self-care (01) ==
PROVIDERS: Emergency Medicine; Emergency Provider Physician Assistant; PCP Nurse Practitioner
DX: D69.6 Thrombocytopenia, unspecified (principal); B34.2 Coronavirus infection, unspecified; Z79.82 Long term (current) use of aspirin; Z11.52 Encounter for screening for COVID-19; Z87.891 Personal history of nicotine dependence; I25.10 Atherosclerotic heart disease of native coronary artery without angina pectoris; E11.9 Type 2 diabetes mellitus without complications; I11.0 Hypertensive heart disease with heart failure; I50.9 Heart failure, unspecified
CPT/HCPCS: 71045; 80053; 81001; 83605; 85025; 86140; 87040; 87486; 87581; 87633; 99284

== ENCOUNTER → 2024-06-04 14:54 | Outpatient (BNVA) | payer OTHER, SELFPAY | PROVIDERS: PCP Nurse Practitioner; Visit Provider Nurse Practitioner Family | DX: I11.0 Hypertensive heart disease with heart failure (principal); I50.23 Acute on chronic systolic (congestive) heart failure; I25.5 Ischemic cardiomyopathy; I25.119 Atherosclerotic heart disease of native coronary artery with unspecified angina pectoris; E66.09 Other obesity due to excess calories; E78.5 Hyperlipidemia, unspecified; Z87.891 Personal history of nicotine dependence; Z86.73 Personal history of transient ischemic attack (TIA), and cerebral infarction without residual deficits; Z68.27 Body mass index [BMI] 27.0-27.9, adult | CPT/HCPCS: 99214 ==

== ENCOUNTER 2024-06-11 10:12 | Outpatient (CLI) | payer OTHER, SELFPAY ==
[2024-06-11 10:52] LABS: Eosinophils # 0.1 10^3/uL (0.0-0.8); Eosinophils % 2.4 %; Hematocrit 30.3 % (37-53); Lymphocytes # 0.7 10^3/uL (0.8-4.8); Lymphocytes % 30.1 %; Mean Corpuscular HGB Conc 33.3 g/dL (30-55); Mean Corpuscular Hemoglobin 31.1 pg (27-33); Mean Corpuscular Volume 93.2 fl (82-101); Mean Platelet Volume 12.1 fL (7.4-10.4); Monocytes # 0.2 10^3/uL (0.2-0.9); Monocytes % 6.5 %; Nucleated Red Blood Cells % 0 %; Platelet Count 43 10^3/cmm (157-399); Red Blood Count 3.25 10^6/uL (3.85-5.65); Red Cell Distribution Width 13.8 % (12.1-15.1); White Blood Count 2.46 10^3/uL (3.29-11.43)
[2024-06-11 11:14] LABS: Anion Gap 8.6 (5-19); Blood Urea Nitrogen 12 mg/dL (8-23); Calcium 8.5 mg/dL (8.5-10.5); Carbon Dioxide 29 mmol/L (22-29); Chloride 105 mmol/L (98-107); Glucose 115 mg/dL (65-115); Osmolality Calculated 289 mOsm/kg (285-295); Potassium 3.6 mmol/L (3.5-5.1); Sodium 139 mmol/L (136-145)
== END 2024-06-11 10:13 | disposition home or self-care (01) ==
LOC: LAB 10:14
PROVIDERS: PCP Nurse Practitioner; Visit Provider Nurse Practitioner Family
DX: I25.119 Atherosclerotic heart disease of native coronary artery with unspecified angina pectoris (principal)
CPT/HCPCS: 36415; 80048; 85025

== ENCOUNTER → 2024-08-14 11:15 | Outpatient (BNVA) | payer OTHER, SELFPAY | PROVIDERS: PCP Nurse Practitioner; Visit Provider Podiatrist Foot & Ankle Surgery | DX: E11.621 Type 2 diabetes mellitus with foot ulcer (principal); L97.522 Non-pressure chronic ulcer of other part of left foot with fat layer exposed | CPT/HCPCS: 99203 ==

== ENCOUNTER → 2024-08-16 09:22 | Outpatient (BNVA) | payer OTHER, SELFPAY | PROVIDERS: PCP Nurse Practitioner; Visit Provider Nurse Practitioner Family | DX: Z09 Encounter for follow-up examination after completed treatment for conditions other than malignant neoplasm (principal); I11.0 Hypertensive heart disease with heart failure; I50.9 Heart failure, unspecified; E66.09 Other obesity due to excess calories; E78.5 Hyperlipidemia, unspecified; I25.119 Atherosclerotic heart disease of native coronary artery with unspecified angina pectoris; Z79.01 Long term (current) use of anticoagulants; Z79.82 Long term (current) use of aspirin; Z95.5 Presence of coronary angioplasty implant and graft; Z86.73 Personal history of transient ischemic attack (TIA), and cerebral infarction without residual deficits; I25.2 Old myocardial infarction; Z68.26 Body mass index [BMI] 26.0-26.9, adult | CPT/HCPCS: 36415; 80048; 99213 ==

== ENCOUNTER 2024-08-29 11:16 | Outpatient (CLI) | payer OTHER, SELFPAY ==
--- NOTE | 2024-08-29 11:15 | USCV_ITS ---
Galen Macdonald Age: 74 Gender: M : 1950 Exam Date: 08/29/2024 11:35 Ordering Phys: Vee Butler NP Technologist: CEASAR Exam Location: [facility] [place] Indication: Acute Systolic Heart Failure BP: 130 / 80 HR: Rhythm: Sinus Technical Quality: Adequate MEASUREMENTS (Male / Female) Normal Values 2D ECHO LV Diastolic Diameter PLAX 7.6 cm 4.2 - 5.9 / 3.9 - 5.3 cm IVS Diastolic Thickness 1.6 cm 0.6 - 1.0 / 0.6 - 0.9 cm IVS Systolic Thickness 1.8 cm LVPW Diastolic Thickness 1.2 cm 0.6 - 1.0 / 0.6 - 0.9 cm LVPW Systolic Thickness 1.9 cm LVOT Diameter 2.4 cm LV Ejection Fraction 2D Teich 51.8 % LV Ejection Fraction MOD 4C 50.9 % LV Ejection Fraction MOD 2C 58.9 % LV Ejection Fraction 2C AL 59.9 % LA Diameter 5.4 cm RA Systolic Volume 4C AL 59.1 ml RA Systolic Volume 4C MOD 62.3 ml Aorta at Sinotubular Diameter 2.8 cm M-MODE LA Ao Ratio MM 1.8 AV Cusp Separation MM 2.2 cm FINDINGS Left Ventricle Right Ventricle Right Atrium Left Atrium Mitral Valve Aortic Valve Tricuspid Valve Pulmonic Valve Pericardium Aorta IVC CONCLUSIONS Limited echocardiogram performed to assess LV systolic function LV systolic function is normal with EF of 55-60%. no regional wall motion abnormalities. Compared to prior echocardiogram from 04/2024 LV systolic function has improved significantly and is normal now. Tan Burns MD (Electronically Signed) Final Date: 15 September 2024 13:26 S
== END 2024-08-29 11:17 | disposition home or self-care (01) ==
LOC: RAD 11:17
PROVIDERS: PCP Nurse Practitioner; Visit Provider Nurse Practitioner Family
DX: I25.5 Ischemic cardiomyopathy (principal); I50.9 Heart failure, unspecified
CPT/HCPCS: 93308

== ENCOUNTER → 2024-09-30 13:34 | Outpatient (BNVA) | payer OTHER, SELFPAY | PROVIDERS: PCP Nurse Practitioner; Visit Provider Podiatrist Foot & Ankle Surgery | DX: E11.621 Type 2 diabetes mellitus with foot ulcer (principal); L97.522 Non-pressure chronic ulcer of other part of left foot with fat layer exposed | CPT/HCPCS: 99213 ==

== ENCOUNTER → 2024-10-22 10:15 | Outpatient (BNVA) | payer OTHER, SELFPAY | PROVIDERS: PCP Nurse Practitioner; Visit Provider Podiatrist Foot & Ankle Surgery | DX: E11.621 Type 2 diabetes mellitus with foot ulcer (principal); L97.522 Non-pressure chronic ulcer of other part of left foot with fat layer exposed | CPT/HCPCS: 99213 ==

== ENCOUNTER → 2024-10-28 11:01 | Outpatient (BNVA) | payer OTHER, SELFPAY | PROVIDERS: PCP Nurse Practitioner; Referring Provider Nurse Practitioner; Visit Provider Nurse Practitioner Family | DX: M54.16 Radiculopathy, lumbar region (principal); G89.29 Other chronic pain | CPT/HCPCS: 99214 ==

== ENCOUNTER 2024-11-14 09:26 | Outpatient (CLI) | payer OTHER, SELFPAY ==
--- NOTE | 2024-11-14 09:34 | US_ITS ---
WS: [id number] RIGHT UPPER QUADRANT ULTRASOUND HISTORY: CIRRHOSIS OF LIVER COMPARISON: 10/20/2023 Liver: 14.2 cm in length. Small caliber liver with nodular margin and coarse echotexture throughout. The entire liver is not very well visualized. Mass would be difficult to exclude. No intrahepatic duct dilatation. Portal Vein: Normal hepatopetal flow with monophasic waveform. Gallbladder: Normally distended gallbladder with no stones or wall thickening. CBD: 0.5 cm Pancreas: Obscured. Right kidney: 9.6 cm in length. Normal size and echogenicity. No hydronephrosis or mass. Aorta and IVC: Limited. No ascites. US/US abdomen limited [id number] IMPRESSION: 1. Technically difficult RIGHT upper quadrant ultrasound. 2. Advanced cirrhotic appearance of the liver. No mass or intrahepatic duct di latation. 3. Negative gallbladder.
== END 2024-11-14 09:27 | disposition home or self-care (01) ==
PROVIDERS: PCP Nurse Practitioner; Visit Provider Nurse Practitioner
DX: K74.60 Unspecified cirrhosis of liver (principal)
CPT/HCPCS: 76705

== ENCOUNTER → 2024-11-18 11:43 | Outpatient (BNVA) | payer OTHER, SELFPAY | PROVIDERS: PCP Nurse Practitioner; Visit Provider Internal Medicine | DX: I11.0 Hypertensive heart disease with heart failure (principal); I50.9 Heart failure, unspecified; E66.09 Other obesity due to excess calories; Z68.25 Body mass index [BMI] 25.0-25.9, adult; E11.69 Type 2 diabetes mellitus with other specified complication; E78.5 Hyperlipidemia, unspecified; I25.119 Atherosclerotic heart disease of native coronary artery with unspecified angina pectoris; Z86.73 Personal history of transient ischemic attack (TIA), and cerebral infarction without residual deficits; Z87.891 Personal history of nicotine dependence; Z79.84 Long term (current) use of oral hypoglycemic drugs | CPT/HCPCS: 99213 ==

== ENCOUNTER 2024-11-26 11:24 | Outpatient (CLI) | payer OTHER, SELFPAY ==
--- NOTE | 2024-11-26 11:30 | XR_ITS ---
WS: [id number] XR lumbar spine min 4V [id number] REASON FOR EXAM: M54.9 - Dorsalgia, unspecified FINDINGS: Mild rotatory levoscoliosis. Relatively normal lumbar lordosis. Mild chronic biconcave compression deformities L1-L4. Mild narrowing of the disc spaces L1-L3. The disc spaces otherwise are intact and relatively well preserved. Moderate osteophytosis L1-L3. No spondylolysis. No significant neutral listhesis. XR/XR lumbar spine min 4V [id number] IMPRESSION: Degenerative spondylosis of the lumbar spine as above.
== END 2024-11-26 11:25 | disposition home or self-care (01) ==
LOC: RAD 11:26
PROVIDERS: PCP Nurse Practitioner; Visit Provider Anesthesiology Pain Medicine
DX: M54.9 Dorsalgia, unspecified (principal); M79.10 Myalgia, unspecified site; M54.16 Radiculopathy, lumbar region; G89.29 Other chronic pain; Z87.891 Personal history of nicotine dependence; E11.621 Type 2 diabetes mellitus with foot ulcer; L97.522 Non-pressure chronic ulcer of other part of left foot with fat layer exposed; L60.0 Ingrowing nail; E11.8 Type 2 diabetes mellitus with unspecified complications; L02.612 Cutaneous abscess of left foot; L03.032 Cellulitis of left toe; M47.896 Other spondylosis, lumbar region; M41.86 Other forms of scoliosis, lumbar region; M43.8X9 Other specified deforming dorsopathies, site unspecified; M48.061 Spinal stenosis, lumbar region without neurogenic claudication
CPT/HCPCS: 10060; 11730; 11750; 20553; 72110; 87070; 87075; 87205; 99214; J1010; J3490

== ENCOUNTER → 2024-12-04 12:10 | Outpatient (BNVA) | payer OTHER, SELFPAY | PROVIDERS: PCP Nurse Practitioner; Visit Provider Podiatrist Foot & Ankle Surgery | DX: L60.0 Ingrowing nail (principal); E11.8 Type 2 diabetes mellitus with unspecified complications; E11.621 Type 2 diabetes mellitus with foot ulcer; L97.522 Non-pressure chronic ulcer of other part of left foot with fat layer exposed; L02.612 Cutaneous abscess of left foot; L03.032 Cellulitis of left toe | CPT/HCPCS: 99213 ==

== ENCOUNTER → 2024-12-10 14:08 | Outpatient (BNVA) | payer OTHER, SELFPAY | PROVIDERS: PCP Nurse Practitioner; Visit Provider Nurse Practitioner Family | DX: M54.16 Radiculopathy, lumbar region (principal); G89.29 Other chronic pain | CPT/HCPCS: 99214 ==

== ENCOUNTER 2024-12-25 08:07 | Outpatient (CLI) | payer OTHER, SELFPAY ==
--- NOTE | 2024-12-25 08:17 | MR_ITS ---
WS: [id number] MRI ABDOMEN WITH AND WITHOUT CONTRAST. COMPARISON: Ultrasound 11/14/2024 Multiplanar, multisequence imaging is performed with and without contrast. MultiHance 20 mL. No pleural effusions. Heart size appears slightly enlarged. No pericardial effusion. Advanced cirrhotic appearance of the liver. Margins of the liver are lobulated. LEFT lobe is enlarged. Mild enlargement of the caudate lobe and atrophy of the RIGHT lobe. Recanalized umbilical vein. Heterogeneous appearance of the liver but no enhancing mass is identified. The portal vein is patent. No intrahepatic duct dilatation. Gallbladder is normally distended. There are numerous stones within the gallbladder neck. The stones were not identified on the recent ultrasound. No pericholecystic fluid. Gallbladder not hydropic. No duct dilatation. Spleen is enlarged measuring 18 cm in length. No clinical lesions. Pancreas is difficult to visualize in its entirety. No adrenal mass identified. Kidneys are normal size. Simple cyst posterior mid RIGHT kidney measures 2.6 x 2.1 cm. Incidental note is made of bowel loop closely associated with the liver capsule. Postcontrast imaging is negative for enhancing mass or visceral abnormality. MR/MR abdomen wo/w con* [id number] IMPRESSION: 1. Advanced changes of cirrhosis. No enhancing mass. 2. Portal venous hypertension. Marked enlargement of the spleen. 3. Recanalized umbilical vein. 4. Cholelithiasis. Numerous stones are noted within the gallbladder neck. Thes e stones were not identified on the recent ultrasound. 5. RIGHT renal cyst.
[2024-12-25] MEDS: gadobenate dimeglumine 20 mL vial IV (08:48)
== END 2024-12-25 08:08 | disposition home or self-care (01) ==
LOC: RAD 08:08
PROVIDERS: PCP Nurse Practitioner; Visit Provider Nurse Practitioner
DX: K74.60 Unspecified cirrhosis of liver (principal); N28.1 Cyst of kidney, acquired; K80.20 Calculus of gallbladder without cholecystitis without obstruction; R16.1 Splenomegaly, not elsewhere classified; I87.309 Chronic venous hypertension (idiopathic) without complications of unspecified lower extremity
CPT/HCPCS: 74183

== ENCOUNTER → 2025-02-05 10:21 | Outpatient (BNVA) | payer OTHER, SELFPAY | PROVIDERS: PCP Nurse Practitioner; Visit Provider Podiatrist Foot & Ankle Surgery | DX: L60.0 Ingrowing nail (principal); E11.8 Type 2 diabetes mellitus with unspecified complications; E11.621 Type 2 diabetes mellitus with foot ulcer; L97.522 Non-pressure chronic ulcer of other part of left foot with fat layer exposed; L02.612 Cutaneous abscess of left foot; L03.032 Cellulitis of left toe | CPT/HCPCS: 99213 ==

== ENCOUNTER → 2025-03-13 13:34 | Outpatient (BNVA) | payer OTHER, SELFPAY | PROVIDERS: PCP Nurse Practitioner; Visit Provider Nurse Practitioner Family | DX: M79.18 Myalgia, other site (principal); M54.16 Radiculopathy, lumbar region; G89.29 Other chronic pain | CPT/HCPCS: 20553; 99214; J1010; J3490 ==

== ENCOUNTER → 2025-04-21 09:26 | Outpatient (BNVA) | payer OTHER, SELFPAY | PROVIDERS: PCP Nurse Practitioner; Visit Provider Nurse Practitioner Family | DX: M54.16 Radiculopathy, lumbar region (principal); G89.29 Other chronic pain | CPT/HCPCS: 99214 ==

== ENCOUNTER → 2025-05-19 14:37 | Outpatient (BNVA) | payer OTHER, SELFPAY | PROVIDERS: PCP Nurse Practitioner; Visit Provider Internal Medicine | DX: I11.0 Hypertensive heart disease with heart failure (principal); I50.9 Heart failure, unspecified; E66.9 Obesity, unspecified; E11.9 Type 2 diabetes mellitus without complications; Z79.84 Long term (current) use of oral hypoglycemic drugs; E78.5 Hyperlipidemia, unspecified; I25.10 Atherosclerotic heart disease of native coronary artery without angina pectoris; Z98.61 Coronary angioplasty status; Z79.02 Long term (current) use of antithrombotics/antiplatelets; Z79.82 Long term (current) use of aspirin; Z86.73 Personal history of transient ischemic attack (TIA), and cerebral infarction without residual deficits; Z87.891 Personal history of nicotine dependence | CPT/HCPCS: 99214 ==